=== PATIENT | female | born 2000 | race Hispanic/Latino ===

== ENCOUNTER 2021-02-05 07:19 | Emergency (ER) | payer OTHER, SELFPAY ==
--- OUTSIDE RECORDS SUMMARY | 2021-02-05 07:25 | XMS REPORT | Continuity of Care Document ---
:2000 Author Organization [facility] t Address [address] [place] [address] Care Team Providers Name Role Phone Gm Melvin III Attending Clinician Christofer Hogan Attending Clinician Mala Ji Attending Clinician Erma Arredondo Attending Clinician Pee Esparza Attending Clinician Sunny Lott Attending Clinician Placido Jasmine Jr Attending Clinician Harish Shukla Attending Clinician Sven Bautista Attending Clinician Mala Ji Admitting Clinician Erma Arredondo Admitting Clinician Payers Payer Name Policy Type Policy Number Effective Date Expiration Date S ource Problems Condition Condition Condition Status Onset Resolution Last Treating Co mments Source Name Details Category Date Date Treatment Clinician Date CYST IN Diagnosis Active 2020-04-11 Me moria EAR 5-30 15:28:00 l CYST IN 00:00: Abdulaziz EAR 00 Active 04/11/2020 [facility] ABD Diagnosis Active 2018-112019-08-19 Mem oria PAIN,VAGIN 0-07 18:43:00 l AL BLEED ABD 00:00: Abdulaziz PAIN,VAGIN 00 AL BLEED Active 08/19/2019 [facility] NVD Diagnosis Active 2018-05-11 Mem oria 6-20 15:48:00 l NVD 00:00: Sherman 00 Active 05/02/2018 [facility] VAG BLEED Diagnosis Active 2017-12-15 Memoria - 11:14:00 l VAG 00:00: Abdulaziz BLEED 00 Active 12/13/2017 [facility] VAG Diagnosis Active 2017-12-15 Mem oria BLEEDING/P 1-16 11:14:00 l REGNANT VAG 00:00: Sherman BLEEDING/P 00 REGNANT Active 11/28/2017 [facility] CP Diagnosis Active 2016-112017-12-15 Mem oria 12-09 11:13:00 l CP 00:00: Abdulaziz 00 Active 10/09/2017 [facility] LOWER PAIN Diagnosis Active 2015-112016-10-24 Memoria BACK, - 15:47:00 l HEADACHE, LOWER 00:00: Parish n PAIN PAIN BACK, 00 URINATIN HEADACHE, PAIN URINATIN Active 10/24/2016 [facility] VOMITTING Diagnosis Active 2016-03-11 Memoria 03-10 01:45:00 l 21:00: Sherman VOMITTING 00 Active 03/10/2016 [facility] Less than Problem 2018-03-21 Me moria 8 weeks 17:01:50 l gestation Less Sherman of than 8 weeks gestation of 03/21/2018 [facility] Unspecifie Problem 2018-03-06 M emoria d 19:04:36 l infection Abdulaziz of urinary Unspecifie tract in d , infection first of urinary trimester tract in , first trimester 03/06/2018 [facility] VAGINAL Diagnosis Active 2018-04-05 Me moria BLEEDING 12:34:00 l VAGINAL Sherman BLEEDING Active [facility] Diagnosis Active 2018-05-11 Memoria RELATED 15:48:00 l CONDITIONS Parish n , UNSP, UNSP RELATED CONDITIONS , UNSP, UNSP Active [facility] Patient Problem Resolve 2020-04-13 2020-04-13 Memoria currently d 04-05 21:43:07 21:43:07 l Patient 00:00: Princess nn (finding) currently 00 (finding) Resolved 04/05/2018 Problem 04/13/2020 [facility] History of Past Illness Condition Condition Condition Status Onset Resolution Last Treating Co mments Source Name Details Category Date Date Treatment Clinician Date Unspecifie Problem 2020-04-13 2020-04-13 Memoria d otitis 30 21:43:07 21:43:07 l externa, 17:00: Sherman unspecifie Unspecifie 00 d ear d otitis externa, unspecifie d ear 04/11/2020 04/13/2020 [facility] Urinary Problem 2018-05-05 2018-05-05 Memoria tract - 04:24:57 04:24:57 l infection, Urinary 05:00: Her lopes site not tract 00 specified infection, site not specified 05/02/2018 05/05/2018 [facility] Nausea Problem 2018-05-05 2018-05-05 M emoria with 05-02 04:24:57 04:24:57 l vomiting, Nausea 05:00: Princess nn unspecifie with 00 d vomiting, unspecifie d 05/02/2018 05/05/2018 [facility] Threatened Problem 2018-03-21 2018-03-21 Memoria 12-13 17:01:50 17:01:50 l 06:00: Sherman Threatened 00 8 03/21/2018 [facility] Other Problem 2018-03-06 2018-03-06 M emoria specified 11-28 19:04:36 19:04:36 l disorders Other 06:00: Parish n of specified 00 amniotic disorders fluid and of membranes, amniotic unspecifie fluid and d membranes, trimester, unspecifie not d applicable trimester, or not unspecifie applicable d or unspecifie d 11/28/2017 03/06/2018 [facility] Problem 2016-112017-10-13 2017-10-13 M emoria pain, 12-10 05:05:00 05:05:00 l unspecifie Chest 06:00: Princess nn d pain, 00 unspecifie d 10/10/2017 10/13/2017 [facility] Discharge Problem 2015-112016-10-27 2016-10-27 Memoria Diagnosis: 2-12 03:44:14 03:44:14 l Headache 06:00: Sherman Discharge 00 Diagnosis: Headache 6 10/27/2016 [facility] Discharge Problem 2016-03-14 2016-03-14 Memoria Diagnosis: 4-29 02:47:30 02:47:30 l Acute 05:00: Sherman gastritis Discharge 00 Diagnosis: Acute gastritis 03/11/2016 03/14/2016 [facility] Discharge Problem 2016-03-14 2016-03-14 Memoria Diagnosis: 4-29 02:47:30 02:47:30 l Nausea & 05:00: Sherman vomiting Discharge 00 Diagnosis: Nausea & vomiting 6 03/14/2016 [facility] Discharge Problem 2016-03-14 2016-03-14 Memoria Diagnosis: 4- 02:47:30 02:47:30 l Dehydratio 05:00: Parish n n Discharge 00 Diagnosis: Dehydratio n 03/11/2016 03/14/2016 [facility] Discharge Problem 2016-03-14 2016-03-14 Memoria Diagnosis: 4- 02:47:30 02:47:30 l Dyspepsia 05:00: Abdulaziz Discharge 00 Diagnosis: Dyspepsia 03/11/2016 03/14/2016 [facility] Discharge Problem 2016-03-14 2016-03-14 Memoria Diagnosis: 4- 02:47:30 02:47:30 l Epigastric 05:00: Parish n pain Discharge 00 Diagnosis: Epigastric pain 03/11/2016 03/14/2016 [facility] Allergies, Adverse Reactions, Alerts Allergy Allergy Status Severity Reaction(s) Onset Inactive Treating Comm ents Source Name Type Date Date Clinician valentina SEARS Active [facility]05 [place] 00:00[facility] [address] [facility] No Known DA Active U 2018-11 [facility] [facility] No Known No Known Active Memori a Medicati Medicati l on on Abdulaziz Allergie Allergie s s Social History Social Habit Start Date Stop Date Quantity Comments Source Social History 2018-05-03 2018-05-03 [facility] 00:41:40 00:41:40 Medications Ordered Filled Start Stop Current Ordering Indication Dosage Frequency Signature Comments Components Source Medication Medication Date Date Medication? Clinician (SIG) Name Name ibuprofen Yes 600 mg = 1 Me moria 600 mg oral 5-30 tab, PO, l tablet 20:15: Q6H, PRN Sherman 00 Pain or Fever, Take with food, X 10 day, # 30 tab, 0 Refill(s) Hydrocortis Yes 4 drp, Erik andi one 10 5-30 Each l MG/ML / 20:14: Affected Parish n Neomycin 00 Ear, QID, 3.5 MG/ML / X 10 day, Polymyxin B # 10 mL, 0 [id number] Refill(s) UNT/ML Otic Suspension Saline 2018-11 No Notes: Memoria Flush 0.9% 0-07 (Same as: l 13:29: BD Abdulaziz 00 Posiflush) Zofran No Notes: Memoria 6-21 (Same as: l 01:06: Zofran) MEDICATION WASTE Product Size: 4 mg Product Wasted: ___ mg Rocephin No 1 gm, Memoria 05-03 Route: IV, l 01:06: ONCE, Dosing Weight 90.909, kg, Start date: 05/02/18 20:06:00 CDT, Stop date: 05/02/18 20:06:00 CDT, ABX Indication : Urinary Tract Infection normal No 1,000 mL, Memori a saline 0.9% 05-03 Rate: 150 l IV 1,000 mL 01:06: ml/hr, Infuse over: 6.7 hr, Route: IV, Dosing Weight 90.909 kg, Total Volume: 1,000, Start date: 05/02/18 20:06:00 CDT, Duration: 30 day, Stop date: 06/01/18 20:05:00 CDT, 2.03, m2 doxylamine Yes 1 tab, PO, M emoria succinate 6-20 Bedtime, # l 10 MG / 23:24: 14 tab, 0 Princess nn Pyridoxine 00 Refill(s) Hydrochlori de 10 MG Enteric Coated Tablet [Diclegis] Ondansetron Yes 4 mg = 1 Me moria 4 MG 6-20 tab, PO, l Disintegrat 23:23: TID, PRN He rmann ing Tablet 00 Nausea and [Zofran] Vomiting, Dissolve tab under tongue, # 21 tab, 0 Refill(s) Nitrofurant Yes 100 mg = 1 Memoria oin 100 MG 6-20 cap, PO, l Oral 23:22: BID, X 7 Abdulaziz Capsule 00 day, # 14 [Macrobid] cap, 0 Refill(s) Tylenol No 650 mg, Memoria 6-20 Route: PO, l 23:18: Drug form: Sherman 00 TAB, ONCE, Dosing Weight 88, kg, Priority: STAT, Start date: 05/02/18 18:18:00 CDT, Stop date: 05/02/18 18:18:00 CDT Rocephin No 1 gm, Memoria 6-20 Route: l 23:18: IVPB, Drug form: PDR/INJ, ONCE, Dosing Weight 88, kg, Priority: STAT, Start date: 05/02/18 18:18:00 CDT, Stop date: 05/02/18 18:18:00 CDT, ABX Indication : Urinary Tract Infection Zofran ODT No 4 mg, Memori a 6-20 Route: PO, l 23:18: Drug form: Abdulaziz 00 TABDIS, ONCE, Dosing Weight 88, kg, Priority: STAT, Start date: 05/02/18 18:18:00 CDT, Stop date: 05/02/18 18:18:00 CDT Phenergan No Notes: Do Mem oria 6-20 not give l 19:38: IV push. Abdulaziz 00 (Same as: Phenergan) Ondansetron No Notes: Erik andi 6-20 (Same as: l 17:12: Zofran Abdulaziz 00 ODT) Saline No Notes: Memoria Flush 0.9% 6-20 (Same as: l 17:12: BD Sherman Posiflush) Sodium 2017- No 1,000 mL, Memori a Chloride 6-20 1000 l 0.9% 17:12: ml/hr, Abdulaziz (Bolus) IV 00 Infuse Over: 1 hr, Route: IV, 1,000, Drug form: INJ, ONCE, Priority: STAT, Dosing Weight 88 kg, Start date: 05/02/18 12:12:00 CDT, Stop date: 05/02/18 12:12:00 CDT tetanus/dip No Notes: Erik andi hth/pertuss 6-20 (Tdap ) l (Tdap) 05:00: For Abdulaziz adult/adol 00 Adolecent and Adult use For IM Use. Same as: Adacel (Tdap) Nitrofurant Yes 100 mg = 1 Memoria oin 100 MG 5-24 cap, PO, l Oral 18:42: BID, # 20 Sherman Capsule 00 cap, 0 [Macrobid] Refill(s), Pharmacy: [facility] Metronidazo Yes 500 mg = 1 Memoria le 500 MG 5-24 tab, PO, l Oral Tablet 18:42: BID, # 20 H ermann 00 tab, 0 Refill(s), Pharmacy: [facility] Saline No Notes: Memoria Flush 0.9% 12-13 (Same as: l 21:21: BD Posiflush) Nitrofurant No 100 mg = 1 Memoria oin 100 MG 1-16 cap, PO, l Oral 23:07: BID, X 7 Sherman Capsule 00 day, # 14 [Macrobid] cap, 0 Refill(s) NS (Bolus) No 1,000 mL, Me moria IV -16 1,000 l 21:54: ml/hr, Infuse Over: 1 hr, Route: IV, ONCE, Priority: STAT, Dosing Weight 87.909 kg, Start date: 11/28/17 15:54:00 REGISTERED NURSE SUPERVISOR, Stop date: 11/28/17 15:54:00 REGISTERED NURSE SUPERVISOR PNV Yes 1 tab, PO, Memoria 1-16 Daily, 0 l Plus 21:51: Refill(s) Tylenol No Notes: Do Memor ia 1-16 not exceed l 21:48: 4 gm/day. Abdulaziz 00 (Same as: Tylenol) Ketorolac 2016-11 No 10 mg = 1 Mem oria Tromethamin 1-28 tab, PO, l e 10 MG 14:07: Q6H, PRN Parish n Oral Tablet 00 pain, # 20 tab, 0 Refill(s) Ranitidine 2016-11 Yes 150 mg = 1 M emoria 150 MG Oral 12-10 tab, PO, l Tablet 14:05: BID, # 30 Parish n [Zantac] 00 tab, 0 Refill(s) Ketorolac 2016-11 No 30 mg, Memori a 12-10 Route: l 12:27: IVP, Drug form: INJ, ONCE, Dosing Weight 92.273, kg, Priority: STAT, Start date: 10/10/17 6:27:00 REGISTERED NURSE SUPERVISOR, Stop date: 10/10/17 6:27:00 REGISTERED NURSE SUPERVISOR Saline 2016-11 No Notes: Memoria Flush 0.9% 12-10 (Same as: l 09:26: BD Abdulaziz 00 Posiflush) Acetaminoph 2015-11 Yes 1 cap, PO, Memoria en 300 MG / 2-12 Q4H, PRN l butalbital 18:41: PRN Sherman 50 MG / 00 Headache, Caffeine 40 Do not MG Oral exceed 6 Capsule capsules [Fioricet] in 24 hours, X 10 day, # 20 cap, 0 Refill(s) Benadryl 2015-11 No Notes: Memoria 2-12 (Same as: l 16:04: Benadryl) Abdulaziz 00 Reglan 2015-11 No Notes: Memoria 2-12 (Same as: l 16:04: Reglan) Abdulaziz 00 Sodium 2015-11 No 1,000 mL, Memori a Chloride 12 1,000 l 0.154 16:04: ml/hr, Abdulaziz MEQ/ML 00 Infuse Injectable Over: 1 Solution hr, Route: IV, 1,000, Drug form: INJ, ONCE, Priority: STAT, Dosing Weight 80.966 kg, Start date: 10/24/16 10:04:00 REGISTERED NURSE SUPERVISOR, Duration: 1 doses or times, Stop date: 10/24/16 10:04:00 REGISTERED NURSE SUPERVISOR Ketorolac 2015-11 No 4 days Memor ia -12 l 16:03: MEDICATION Abdulaziz 00 WASTE Product Size: 30 mg Product Wasted: ___ mg Tylenol 2015-11 No 650 mg, Memoria 12 Route: PO, l 15:23: Drug form: Sherman 00 TAB, ONCE, Dosing Weight 80.966, kg, Priority: STAT, Start date: 10/24/16 9:23:00 REGISTERED NURSE SUPERVISOR, Stop date: 10/24/16 9:23:00 REGISTERED NURSE SUPERVISOR Acetaminoph 2015- No 1 - 2 tab, Memoria en 300 MG / 03-11 PO, Q4H, l Codeine 09:26: PRN Pain, Princess nn Phosphate 00 X 2 day, # 30 MG Oral 20 tab, 0 Tablet Refill(s) [Tylenol with Codeine #3] Ondansetron Yes 8 mg = 1 Me moria 8 MG 4-29 tab, PO, l Disintegrat 09:26: TID, PRN He rmann ing Tablet 00 Nausea and [Zofran] Vomiting, Dissolve tab under tongue, X 4 day, # 10 tab, 0 Refill(s) Ranitidine Yes 150 mg = 1 M emoria 150 MG Oral -29 tab, PO, l Tablet 09:25: BID, # 60 Parish n [Zantac] 00 tab, 0 Refill(s) Sodium 2015- No 1,000 mL, Memori a Chloride 03-11 1,000 l 0.154 07:42: ml/hr, Abdulaziz MEQ/ML 00 Infuse Injectable Over: 1 Solution hr, Route: IV, ONCE, Priority: STAT, Dosing Weight 72.955 kg, Start date: 03/11/16 2:42:00 CDT, Duration: 1 doses or times, Stop date: 03/11/16 2:42:00 CDT Morphine 2015- No 4 mg, Memoria 03-11 Route: l 06:05: IVP, Drug Abdulaziz form: INJ, ONCE, Dosing Weight 72.955, kg, Priority: STAT, Start date: 03/11/16 1:05:00 CDT, Stop date: 03/11/16 1:05:00 CDT Reglan 2015-0 No 10 mg, Memoria 03-11 Route: l 06:05: IVP, Drug Abdulaziz form: INJ, ONCE, Dosing Weight 72.955, kg, Priority: STAT, Start date: 03/11/16 1:05:00 CDT, Stop date: 03/11/16 1:05:00 CDT GI cocktail 2015-0 No 30 mL, Erik andi 03-11 Route: PO, l 06:05: Dosing Abdulaziz 00 Weight 72.955, kg, ONCE, STAT, Start date: 03/11/16 1:05:00 CDT, Stop date: 03/11/16 1:05:00 CDT Ondansetron No 4 mg, Memor ia 03-11 Route: PO, l 03:37: Drug form: Sherman 00 TABDIS, ONCE, Dosing Weight 65, kg, Priority: STAT, Start date: 03/10/16 22:37:00 CDT, Stop date: 03/10/16 22:37:00 CDT Saline No Notes: Memoria Flush 0.9% 03-11 (Same as: l 03:37: BD Sherman Posiflush) Vital Signs Vital Name Observation Time Observation Value Comments Source Height 2020-04-11 20:07:00 [facility] Calculated 2020-04-11 20:07:00 Memori al [place] Weight 2020-04-11 20:07:00 [facility] [place] Systolic (mm Hg) 2020-04-11 20:07:00 Erik rial Sherman Diastolic (mm Hg) 2020-04-11 20:07:00 Mem orial [place] Heart Rate 2020-04-11 20:07:00 [facility] Abdulaziz Respitory Rate 2020-04-11 20:07:00 Memori al Abdulaziz Temperature Oral (F) 2020-04-11 20:07:00 98 F [facility] Abdulaziz Systolic (mm Hg) 2019-08-19 13:16:00 Erik rial Sherman Diastolic (mm Hg) 2019-08-19 13:16:00 Mem orial Abdulaziz Heart Rate 2019-08-19 13:16:00 [facility] Abdulaziz Respitory Rate 2019-08-19 13:16:00 Memori al Sherman Temperature Oral (F) 2019-08-19 13:16:00 98.4 F [facility] [place] Height 2019-08-19 13:16:00 157.48 cm [facility] Abdulaziz BMI Calculated 2019-08-19 13:16:00 Memori al Abdulaziz Weight 2019-08-19 13:16:00 [facility] Abdulaziz Systolic (mm Hg) 2018-05-03 00:30:00 Erik rial Sherman Diastolic (mm Hg) 2018-05-03 00:30:00 Mem orial [place] Heart Rate 2018-05-03 00:30:00 [facility] [place] Respitory Rate 2018-05-03 00:30:00 Memori al Abdulaziz Temperature Oral (F) 2018-05-03 00:30:00 97.2 F [facility] [place] Weight 2018-05-03 00:05:00 [facility] Abdulaziz Height 2018-05-03 00:05:00 157.48 cm [facility] [place] BMI Calculated 2018-05-03 00:05:00 Memori al Abdulaziz Systolic (mm Hg) 2018-05-02 23:23:00 Erik rial Abdulaziz Diastolic (mm Hg) 2018-05-02 23:23:00 Mem orial Sherman Respitory Rate 2018-05-02 23:23:00 Memori al [place] Respitory Rate 2018-05-02 22:30:00 Memori al Abdulaziz Systolic (mm Hg) 2018-05-02 22:30:00 Erik rial [place] Diastolic (mm Hg) 2018-05-02 22:30:00 Mem orial Abdulaziz Temperature Oral (F) 2018-05-02 17:09:00 98.2 F [facility] [place] Heart Rate 2018-05-02 17:09:00 [facility] Abdulaziz Height 2018-05-02 17:09:00 165.1 cm [facility] [place] BMI Calculated 2018-05-02 17:09:00 Memori al Abdulaziz Weight 2018-05-02 17:09:00 [facility] [place] Systolic (mm Hg) 2018-04-05 16:55:00 Erik rial Sherman Diastolic (mm Hg) 2018-04-05 16:55:00 Mem orial Sherman Height 2018-04-05 16:38:00 157.48 cm [facility] [place] Weight 2018-04-05 16:38:00 [facility] Abdulaziz BMI Calculated 2018-04-05 16:38:00 Memori al Abdulaziz Systolic (mm Hg) 2017-12-13 23:47:00 Erik rial Abdulaziz Diastolic (mm Hg) 2017-12-13 23:47:00 Mem orial Sherman Respitory Rate 2017-12-13 23:47:00 Memori al [place] Respitory Rate 2017-12-13 22:51:00 Memori al Abdulaziz Heart Rate 2017-12-13 22:51:00 [facility] Abdulaziz Systolic (mm Hg) 2017-12-13 22:51:00 Erik rial Sherman Diastolic (mm Hg) 2017-12-13 22:51:00 Mem orial Abdulaziz Weight 2017-12-13 21:17:00 [facility] Abdulaziz Temperature Oral (F) 2017-12-13 21:17:00 99.3 F [facility] Abdulaziz BMI Calculated 2017-12-13 21:17:00 Memori al Abdulaziz Height 2017-12-13 21:17:00 157.48 cm [facility] Abdulaziz Systolic (mm Hg) 2017-12-13 21:17:00 Erik rial Abdulaziz Diastolic (mm Hg) 2017-12-13 21:17:00 Mem orial Abdulaziz Heart Rate 2017-12-13 21:17:00 [facility] Abdulaziz Respitory Rate 2017-12-13 21:17:00 Memori al Abdulaziz Heart Rate 2017-11-28 23:48:00 [facility] Abdulaziz Respitory Rate 2017-11-28 23:48:00 Memori al Abdulaziz Systolic (mm Hg) 2017-11-28 23:48:00 Erik rial Sherman Diastolic (mm Hg) 2017-11-28 23:48:00 Mem orial Sherman Systolic (mm Hg) 2017-11-28 22:30:00 Erik rial Sherman Diastolic (mm Hg) 2017-11-28 22:30:00 Mem orial Sherman Respitory Rate 2017-11-28 22:30:00 Memori al [place] Heart Rate 2017-11-28 22:30:00 [facility] Abdulaziz Systolic (mm Hg) 2017-11-28 21:30:00 Erik rial Abdulaziz Diastolic (mm Hg) 2017-11-28 21:30:00 Mem orial [place] Heart Rate 2017-11-28 21:30:00 [facility] Abdulaziz Respitory Rate 2017-11-28 21:30:00 Memori al [place] Weight 2017-11-28 20:40:00 [facility] Abdulaziz BMI Calculated 2017-11-28 20:40:00 Memori al Abdulaziz Temperature Oral (F) 2017-11-28 20:40:00 98.4 F [facility] Abdulaziz Height 2017-11-28 20:40:00 157.48 cm [facility] [place] Heart Rate 2017-10-10 14:07:00 [facility] [place] Respitory Rate 2017-10-10 14:07:00 Memori al [place] Systolic (mm Hg) 2017-10-10 14:07:00 Erik rial Sherman Diastolic (mm Hg) 2017-10-10 14:07:00 Mem orial Abdulaziz Weight 2017-10-10 07:14:00 [facility] Abdulaziz BMI Calculated 2017-10-10 07:14:00 Memori al Abdulaziz Temperature Oral (F) 2017-10-10 07:14:00 99 F [facility] [place] Respitory Rate 2017-10-10 07:14:00 Memori al [place] Height 2017-10-10 07:14:00 154.94 cm [facility] Abdulaziz Heart Rate 2017-10-10 07:14:00 [facility] Abdulaziz Systolic (mm Hg) 2017-10-10 07:14:00 Erik rial Abdulaziz Diastolic (mm Hg) 2017-10-10 07:14:00 Mem orial Abdulaziz Systolic (mm Hg) 2016-10-24 18:47:00 Erik rial Abdulaziz Diastolic (mm Hg) 2016-10-24 18:47:00 Mem orial Sherman Respitory Rate 2016-10-24 18:47:00 Memori al Abdulaziz Heart Rate 2016-10-24 18:47:00 [facility] [place] Temperature Oral (F) 2016-10-24 18:47:00 97.3 F [facility] Abdulaziz Systolic (mm Hg) 2016-10-24 17:04:00 Erik rial Abdulaziz Diastolic (mm Hg) 2016-10-24 17:04:00 Mem orial Sherman Respitory Rate 2016-10-24 17:04:00 Memori al Abdulaziz Heart Rate 2016-10-24 17:04:00 [facility] Abdulaziz Respitory Rate 2016-10-24 15:22:00 Memori al Abdulaziz Systolic (mm Hg) 2016-10-24 15:22:00 Erik rial Abdulaziz Diastolic (mm Hg) 2016-10-24 15:22:00 Mem orial Abdulaziz Heart Rate 2016-10-24 15:22:00 [facility] [place] BMI Calculated 2016-10-24 14:59:00 Memori al Abdulaziz Weight 2016-10-24 14:59:00 [facility] [place] Height 2016-10-24 14:59:00 157.48 cm [facility] [place] Temperature Oral (F) 2016-10-24 14:59:00 98.4 F [facility] Abdulaziz Heart Rate 2016-03-11 09:33:00 [facility] [place] Temperature Oral (F) 2016-03-11 09:33:00 97.8 F [facility] Abdulaziz Respitory Rate 2016-03-11 09:33:00 Memori al [place] Systolic (mm Hg) 2016-03-11 09:33:00 Erik rial Abdulzaiz Diastolic (mm Hg) 2016-03-11 09:33:00 Mem orial Sherman Systolic (mm Hg) 2016-03-11 08:51:00 Erik rial Abdulaziz Diastolic (mm Hg) 2016-03-11 08:51:00 Mem orial Abdulaziz Respitory Rate 2016-03-11 08:51:00 Memori al Abdulaziz Heart Rate 2016-03-11 08:51:00 [facility] [place] Temperature Oral (F) 2016-03-11 08:51:00 96.8 F [facility] [place] Respitory Rate 2016-03-11 06:18:00 Memori al Abdulaziz Systolic (mm Hg) 2016-03-11 06:18:00 Erik rial Abdulaziz Diastolic (mm Hg) 2016-03-11 06:18:00 Mem orial Abdulaziz Heart Rate 2016-03-11 06:18:00 [facility] Abdulaziz Weight 2016-03-11 03:36:00 [facility] [place] BMI Calculated 2016-03-11 03:36:00 Memori al [place] Temperature Oral (F) 2016-03-11 03:36:00 98.1 F [facility] [place] Height 2016-03-11 03:36:00 157.48 cm [facility] Procedures This patient has no known procedures. Encounters Start End Encounter Admission Attending Care Care Encounter Source Date/Time Date/Time Type Type Clinicians Facility Department ID 2020-04-11 2020-04-11 Outpatient Ngozi [facility] [id number] 15:05:35 15:21:00 Justo Worrell 2020-04-11 2020-04-11 [place] [id number] 15:05:00 15:05:00 2019-08-19 2019-08-19 Outpatient Edison, [facility] [id number] 08:14:07 09:20:00 Agusto Beaulieu 2018-05-02 2018-05-02 Outpatient Garrison [facility] [id number] 12:06:00 23:09:00 Ricardo Lemus 2018-04-05 2018-04-05 Outpatient Arnulfo, [facility] [id number] 11:38:00 13:45:00 Doug Ritchie 2017-12-13 2017-12-13 Outpatient Vilma, [facility] [id number] 14:42:00 17:48:00 Roldan Glasgow 2017-11-28 2017-11-28 Outpatient Juan Carlos Lott [facility] [id number] 14:32:00 17:54:00 Sunny 05 2017-10-10 2017-10-10 Outpatient Kenroy, [facility] [id number] 01:10:00 08:20:00 Isiah 04 2016-10-24 2016-10-24 Outpatient Vazquez, [facility] [id number] 08:47:00 13:06:00 Christopher Yajaira [facility] 2016-03-10 2016-03-11 Outpatient Bautista, [facility] [id number] 22:23:00 04:34:00 Alessandra López Results Test Description Test Time Test Comments Results Result Comments Source ISTAT HCG 2021-01-18 17:00:00 Test Item Value Reference Range Interpretation Comme nts ISTAT HCG (test code = ISHCG) <5.0 IU/L A value of less than or equal to <5 IU/L is considered N EGATIVE A value between 5 IU/L and 25 IU/ L is considered INDETERMINATE A value of >25 IU/L is considered POSI TIVE ISTAT CHEM [id number] 17:00:00 Test Item Value Reference Range Interpretation Comments ISTATNA (test code = 140 MMOL/L 137-145 ISTATNA) ISTATK (test code = 4.2 MMOL/L 3.6-5.0 ISTATK) ISTATCL (test code = 105 MMOL/L 98-107 ISTATCL) ISTIONCA (test code = 1.37 MMOL/L 1.12-1.32 H ISTIONCA) ISTCO2 (test code = 22 MMOL/L 22-30 ISTCO2) ISTATGLU (test code = 77 MG/DL 65-110 ISTATGLU) ISTATBUN (test code = 15.0 MG/DL 7.0-20.0 ISTATBUN) ISTCREA (test code = 0.7 MG/DL 0.7-1.5 ISTCREA) ISTATHCT (test code = 45 %PCV 37.0-52.0 ISTATHCT) ISTATHGB (test code = 15.3 G/DL 12.0-18.0 Notifi ed Nurse/MD of [facility]) results outside of Reference Range s ISTANGAP (test code = 17 MMOL/L Notifi ed Nurse/MD of [facility]) results outside of Reference Range s [id number] 16:49:00 Test Item Value Reference Range Interpretation Comments GLUCOSE (test code = URGLU) NEGATIVE MG/DL NEG-100 BILIRUBN (test code = URBILI) NEGATIVE NEGATIVE KETONE (test code = URKET) NEGATIVE MG/DL NEGATIVE BLOOD (test code = URBLD) NEGATIVE UR PH (test code = URPH) 6.0 5.0-7.5 PROTEIN (test code = URPRO) NEGATIVE MG/DL NEGATIVE NITRITES (test code = URNIT) NEGATIVE NEGATIVE UROBILINGEN (test code = 0.2 EU/DL 0.2-1.0 URURO) LEUKOCYT (test code = URLEU) MODERATE NEGATIVE UA COLOR (test code = UA YELLOW YELLOW COLOR) CLARITY (test code = CLARITY) CLOUDY CLEAR SP GRAV (test code = URSPGRAV) 1.020 1.000-1.025 UAMICRO (test code = UAMICRO) YES WBC (test code = URWBC) 23 /HPF 0-5 H RBC (test code = URRBC) 4 /HPF 0-2 H CASTS (test code = CAST) 4 /LPF 0-3 H UR EPI (test code = EPI) 135 /LPF BACTERIA (test code = TRACE NONE BACTERIA) B-HCG, [id number] 10:40:00 Test Item Value Reference Range Interpretation Comments HCG (test code = 578861 MIU/ML A value of less than or HCG) equal to </= 4. 83 mIU/ml is considered N EGATIVE. A value between 4.84 mIU/ml and 24.9 9 mIU/ml is considered INDETERMINATE a nd should be repeated in 48 hours if necessary. A value of 25.0 mIU/ml or greater is considered P OSITIVE. Updated: 03/20/20 10 [id number] 10:19:00 Test Item Value Reference Range Interpretation Comments BLOOD TYPE (test O Rh Positive Comment for code = TYPE) Female s Rhogam may be indicated for p atient depending baby' s Rh status. OB <14 [id number] 10:00:00 [facility] [place] : 2000 Sex: F[address] [id number] IMAGING REPORTPatient Name: ASHLEY HAYNES RDate of Service: [id number]: 20 Sex: F Order #: [id number] Room: ERSDOB: 2000 X-Ray Number: [id number] Record Number: [id number] Hospital Number: [id number] Physician: BRANDON LARSEN -Ordering Physician: MIRIAM MATTA OB <14 WEEKS-MULTIPLE GESTATIONS 11/27/2020 9:51 AM:History: - bleeding - R/O miscarriage . with vaginalbleeding and pelvic pain. Multiple gestation with pain andbleedingComparison: 11/16/2020Technique: Transabdominal grayscale, color Doppler, and spectral Dopplerimaging of the fetus and maternal pelvisFindings:The uterus is anteflexed and measures 14.7 cm in length. There is a livedichorionic diamniotic intrauterine twin gestation. Twin A has a crown-rumplength of 3.2 cm corresponding with an average gestational age of 10 weeksand 1 day with a normal cardiac motion of 160 bpm. The crown-rumplength of twin B measures 3.9 cm corresponding with an averag e gestationalage of 10 weeks and 6 days with a normal cardiac motion of 163 bpm.The placenta and amniotic fluid volume are appropriate. There issubchorionic hemorrhage noted adjacent to the gestational sac measuring 2.2x 0.3 x 2.5 cm.The right ovary is normal in size and sonographic appearance with normalcolor Doppler signal and normal spectral Doppler waveforms. The left ovaryis obscured by bowel gas and not visualized. There is no free fluid withinthe pelvis.Impression:1. Live dichorionic, diamniotic intrauterine twin gestation measuringproximally 10 weeks and 6 days with normal cardiac motion.2. Subchorionic hemorrhage. Recommend attention on follow-up imaging.Electronically Signed By: Christopher Molina M.D., 11/27/2020 9:58 AMLegally authenticated by JASON HARDIN 2020-11-27 09:58:[id number] 09:52:00 Test Item Value Reference Range Interpretation Comments SODIUM (test code 135 MMOL/L 137-145 L = NA) K+ (test code = 4.0 MMOL/L 3.5-5.1 KSERUM) CHLORIDE (test 104 MMOL/L 98-107 code = CL) CO2 (test code = 21 MMOL/L 22-30 L CO2) BUN (test code = 6 MG/DL 7-17 L BUN) CREA (test code = 0.5 MG/DL 0.7-1.2 L CREA) GLUCOSE (test code 75 MG/DL 70-99 Fasting glucose = GLUCOSE) normal <100 MG/ DL- [employer] recommendation* * CALCIUM (test code 9.9 MG/DL 8.4-10.2 = CABLOOD) TOTPROT (test code 7.3 G/DL 6.3-8.2 = TOTPROT) ALBUMIN (test code 4.1 G/DL 3.5-5.0 = ALBSERUM) BILITOT (test code 0.6 MG/DL 0.2-1.3 = BILITOT) AST (test code = 21 U/L 15-46 AST) PHOSALK (test code 44 U/L 38-126 = PHOSALK) ALTV (test code = 11 U/L 13-69 L ALTV) GFR (test code = 166 A GFR of >9 0 GFR) mL/min/1.73m2 mL/min/1.73m2 is considered norm al. The GFR calcula tion on patients ove r 70 years of age is not validated by e solutions market consultant an d may not represent t he patients true r enal function. [id number] 09:30:00 Test Item Value Reference Range Interpretation Comments WBC (test code = 9.5 K/UL 3.5-10.9 WBC) RBC (test code = 4.61 M/UL 4.0-5.0 RBC) HGB (test code = 14.1 G/DL 11.5-15.5 HGB) HCT (test code = 41.0 % 34-46 HCT) MCV (test code = 88.9 FL 80-98 MCV) MCH (test code = 30.6 PG 28-32 MCH) MCHC (test code = 34.4 G/DL 32.5-36.5 MCHC) RDW (test code = 14.8 % 11.5-14.5 H RDW) PLT (test code = 282 K/UL 150-450 PLT) MPV (test code = 10.0 FL 7.4-10.4 MPV) MANDIFF (test code = NO MANDIFF) SCAN (test code = NO SCAN) NEUT% (test code = 77.4 % 40-75 H NEUT%) LYMPH% (test code = 15.7 % 24-44 L LYMPH%) MONO% (test code = 5.4 % 0-13 MONO%) EOS% (test code = 0.9 % 0-4 EOS%) BASO % (test code = 0.3 % 0-2 BASO%) IG (test code = IG) 0 % 0-1 IG% (test code = 0.3 % 0-1 IG% = Metam yelocytes, IG%) Myelocytes, and Promyelocytes. (Immature neutr ophils not including " bands".) > 3% IG indic ates risk of sepsis NRBC% (test code = 0 /100 WBC NRBC%) ABS NEUT (test code 7.4 K/UL 1.2-7.2 H = NEUT) [id number] 08:33:00 Test Item Value Reference Range Interpretation Comments GLUCOSE (test code = URGLU) NEGATIVE MG/DL NEG-100 BILIRUBN (test code = URBILI) NEGATIVE NEGATIVE KETONE (test code = URKET) NEGATIVE MG/DL NEGATIVE BLOOD (test code = URBLD) NEGATIVE UR PH (test code = URPH) 5.5 5.0-7.5 PROTEIN (test code = URPRO) NEGATIVE MG/DL NEGATIVE NITRITES (test code = URNIT) NEGATIVE NEGATIVE UROBILINGEN (test code = 0.2 EU/DL 0.2-1.0 URURO) LEUKOCYT (test code = URLEU) MODERATE NEGATIVE UA COLOR (test code = UA YELLOW YELLOW COLOR) CLARITY (test code = CLARITY) CLOUDY CLEAR SP GRAV (test code = URSPGRAV) 1.017 1.000-1.025 UAMICRO (test code = UAMICRO) YES WBC (test code = URWBC) 53 /HPF 0-5 H RBC (test code = URRBC) 5 /HPF 0-2 H CASTS (test code = CAST) 26 /LPF 0-3 H UR EPI (test code = EPI) 119 /LPF BACTERIA (test code = SCAN NONE BACTERIA) US OB <14 [id number] 07:25:00 [facility] : 2000 Sex: F[address] [id number] IMAGING REPORTPatient Name: ASHLEY HAYNES RDate of Service: [id number]: 20 Sex: F Order #: [id number] Room: [facility]NER: 2000 X-Ray Number: [id number] Record Number: [id number] Hospital Number: [id number] Physician: LI MULTANIOrdering Physician: AVILA RILEY OB ULTRASOUND, TWIN GESTATION 11/16/2020HISTORY: Vaginal bleeding, pelvic pain, pregnancyCOMPARISON: 11/11/2020The uterus is anteverted measuring 11.6 x 6.3 x 9.6 cm. The ovaries areobscured by bowel gas. The cervix measures 3.1 cm in length.A twin, live, intrauterine is again. Fetus Ahas crown- rumplength of 2.0 cm with heart rate of 172 BPM. Fetus B has a crown-rumplength of 2.4 cm with heart rate of 172 BPM. Amniotic fluid volume isnormal. Yolk sacs are visualized.Echogenic material posterior to the gestational sac measures 4.0 x 0.7 x1.7 cm. The placenta is not yet well developed.No pelvic free fluid is seen. The urinary bladder is collapsed and not wellvisualized.IMPRESSION:Twin, live, intrauterine at 9 weeks 2 days gestation by [facility]. Estimated delivery date is 06/19/2021. Follow-up recommended later insecond trimester to document normal anatomy.Subchorionic hemorrhage.Electronically Signed By: Dread Carcamo M.D., 11/16/2020 7:23 AMLegally authenticated by BARBIE PAYTON 2020-11-16 07:23:05B-HCG, [id number] 05:18:00 Test Item Value Reference Range Interpretation Comments HCG (test code = 982198 MIU/ML A value of less than or HCG) equal to </= 4. 83 mIU/ml is considered N EGATIVE. A value between 4.84 mIU/ml and 24.9 9 mIU/ml is considered INDETERMINATE a nd should be repeated in 48 hours if necessary. A value of 25.0 mIU/ml or greater is considered P OSITIVE. Updated: 03/20/20 10 [id number] 03:56:00 Test Item Value Reference Range Interpretation Comments SODIUM (test code 135 MMOL/L 137-145 L = NA) K+ (test code = 3.9 MMOL/L 3.5-5.1 KSERUM) CHLORIDE (test 104 MMOL/L 98-107 code = CL) CO2 (test code = 19 MMOL/L 22-30 L CO2) BUN (test code = 15 MG/DL 7-17 BUN) CREA (test code = 0.7 MG/DL 0.7-1.2 CREA) GLUCOSE (test code 89 MG/DL 70-99 Fasting glucose = GLUCOSE) normal <100 MG/ DL- [employer] recommendation* * CALCIUM (test code 10.3 MG/DL 8.4-10.2 H = CABLOOD) TOTPROT (test code 8.0 G/DL 6.3-8.2 = TOTPROT) ALBUMIN (test code 4.6 G/DL 3.5-5.0 = ALBSERUM) BILITOT (test code 0.5 MG/DL 0.2-1.3 = BILITOT) AST (test code = 30 U/L 15-46 AST) PHOSALK (test code 57 U/L 38-126 = PHOSALK) ALTV (test code = 19 U/L 13-69 ALTV) GFR (test code = 112 A GFR of >9 0 GFR) mL/min/1.73m2 mL/min/1.73m2 is considered norm al. The GFR calcula tion on patients ove r 70 years of age is not validated by e solutions market consultant an d may not represent t he patients true r enal function. [id number] 03:44:00 Test Item Value Reference Range Interpretation Comments BLOOD TYPE (test O Rh Positive Comment for code = TYPE) Female s Rhogam may be indicated for patient dependi ng baby's Rh statu s. ANTIBODY SCREEN NEGATIVE NEGATIVE (test code = SCREEN) [id number] 03:21:00 Test Item Value Reference Range Interpretation Comments WBC (test code = 9.4 K/UL 3.5-10.9 WBC) RBC (test code = 5.18 M/UL 4.0-5.0 H RBC) HGB (test code = 14.7 G/DL 11.5-15.5 HGB) HCT (test code = 45.5 % 34-46 HCT) MCV (test code = 87.8 FL 80-98 MCV) MCH (test code = 28.4 PG 28-32 MCH) MCHC (test code = 32.3 G/DL 32.5-36.5 L MCHC) RDW (test code = 15.2 % 11.5-14.5 H RDW) PLT (test code = 317 K/UL 150-450 PLT) MPV (test code = 10.1 FL 7.4-10.4 MPV) MANDIFF (test code = NO MANDIFF) SCAN (test code = NO SCAN) NEUT% (test code = 66.5 % 40-75 NEUT%) LYMPH% (test code = 24.2 % 24-44 LYMPH%) MONO% (test code = 6.6 % 0-13 MONO%) EOS% (test code = 1.9 % 0-4 EOS%) BASO % (test code = 0.4 % 0-2 BASO%) IG (test code = IG) 0 % 0-1 IG% (test code = 0.4 % 0-1 IG% = Metam yelocytes, IG%) Myelocytes, and Promyelocytes. (Immature neutr ophils not including " bands".) > 3% IG indic ates risk of sepsis NRBC% (test code = 0 /100 WBC NRBC%) ABS NEUT (test code 6.3 K/UL 1.2-7.2 = NEUT) [id number] 03:20:00 Test Item Value Reference Range Interpretation Comments GLUCOSE (test code = URGLU) NEGATIVE MG/DL NEG-100 BILIRUBN (test code = URBILI) NEGATIVE NEGATIVE KETONE (test code = URKET) NEGATIVE MG/DL NEGATIVE BLOOD (test code = URBLD) NEGATIVE UR PH (test code = URPH) 6.0 5.0-7.5 PROTEIN (test code = URPRO) NEGATIVE MG/DL NEGATIVE NITRITES (test code = URNIT) NEGATIVE NEGATIVE UROBILINGEN (test code = 1.0 EU/DL 0.2-1.0 URURO) LEUKOCYT (test code = URLEU) MODERATE NEGATIVE UA COLOR (test code = UA YELLOW YELLOW COLOR) CLARITY (test code = CLARITY) CLEAR CLEAR SP GRAV (test code = URSPGRAV) 1.011 1.000-1.025 UAMICRO (test code = UAMICRO) YES WBC (test code = URWBC) 26 /HPF 0-5 H RBC (test code = URRBC) 1 /HPF 0-2 CASTS (test code = CAST) 2 /LPF 0-3 UR EPI (test code = EPI) 65 /LPF BACTERIA (test code = NEGATIVE NONE BACTERIA) ISTAT [id number] 02:56:00 Test Item Value Reference Range Interpretation Comments ISTAT HCG (test >2000.0 IU/L H A value of l ess than or code = ISHCG) equal to <5 IU /L is considered NEGA TIVE A value between 5 IU/L and 25 IU/L is cons idered INDETERMINATE A value of >25 IU/L is con sidered POSITIVE REFLEX CULTURE, [id number] 11:21:00 Test Item Value Reference Range Interpretation Comments Report Text (test CWJ 2020-11-12 848 code = Report Text) Report Text7 (test NO GROWTH WITHIN 24 HOURS code = Report Text7) Report Text8 (test PRELIMINARY REPORT code = Report Text8) Report Text9 (test code = Report Text9) Report Text10 (test 2020-11-13 1121 code = Report Text10) Report Text11 (test NO GROWTH WITHIN 48 HOURS code = Report Text11) Report Text12 (test FINAL REPORT code = Report Text12) US OB <14 [id number] 06:54:[address] [facility]ZTName: ASHLEY HAYNES : 2000 [facility] [place], [place] [address]KSKMGKMETC IMAGING REPORTPatient Name: ASHLEY HAYNES RDate of Service: [id number]: 21 Sex: F Order #: [id number] [facility] 2000 [facility] Number: [id number] Record Number: [id number] Hospital Number: [id number] Physician: Enoch LOYD Physician: SANDI LOYD OBULTRASOUND 11/11/2020HISTORY: Pelvic cramping and vaginal spotting, back pain, pregnancyCOMPARISON: NoneThe uterus is anteverted measuring 12.1 x 7.5 x 8.3 cm. Right ovarymeasures 3.3 x 2.5 x 2.4 cm and the left 2.5 x 2.2 x 3.2 cm. Blood flow isseen in both ovaries on color Doppler and duplex imaging with spectralanalysis. The cervix measures 2.6 cm in length.A twin, live, intrauterine is observed with crown-rump length of1.8 cm for fetus A and 1.9 cm for fetus B. heart rate is 161-163 BPMrespectively. Amniotic fluid volume is normal. Yolk sacs are visualized.Subchorionic hemorrhageon the right measures up to 4.8 x 2.2 x 2.3 cm. Theplacenta is not yet well- developed.No pelvic freefluid is seen. The urinary bladder is collapsed and not wellseen.IMPRESSION:Twin, live, intrauterinepregnancy at 8 weeks 6 days gestation by [facility]. Estimated delivery date is 06/17/2021. Follow-up recommended later insecond trimester to document normal anatomy.Subchorionic hemorrhage.No other acute findings.Electronically Signed By: Dread Carcamo M.D., 11/11/2020 6:51 Molly authenticatedby BARBIE PAYTON 2020-11-11 06:51:[id number] 06:49:00 Test Item Value Reference Range Interpretation Comments GLUCOSE (test code = URGLU) NEGATIVE MG/DL NEG-100 BILIRUBN (test code = URBILI) NEGATIVE NEGATIVE KETONE (test code = URKET) NEGATIVE MG/DL NEGATIVE BLOOD (test code = URBLD) NEGATIVE UR PH (test code = URPH) 6.0 5.0-7.5 PROTEIN (test code = URPRO) NEGATIVE MG/DL NEGATIVE NITRITES (test code = URNIT) NEGATIVE NEGATIVE UROBILINGEN (test code = 0.2 EU/DL 0.2-1.0 URURO) LEUKOCYT (test code = URLEU) SMALL NEGATIVE UA COLOR (test code = UA YELLOW YELLOW COLOR) CLARITY (test code = CLARITY) CLEAR CLEAR SP GRAV (test code = URSPGRAV) 1.011 1.000-1.025 UAMICRO (test code = UAMICRO) YES WBC (test code = URWBC) 49 /HPF 0-5 H RBC (test code = URRBC) 3 /HPF 0-2 H CASTS (test code = CAST) 0 /LPF 0-3 UR EPI (test code = EPI) 45 /LPF BACTERIA (test code = NEGATIVE NONE BACTERIA) ISTAT [id number] 05:37:00 Test Item Value Reference Range Interpretation Comments ISTAT HCG (test >2000.0 IU/L H A value of l ess than or code = ISHCG) equal to <5 IU /L is considered NEGA TIVE A value between 5 IU/L and 25 IU/L is cons idered INDETERMINATE A value of >25 IU/L is con sidered POSITIVE [id number] 05:14:00 Test Item Value Reference Range Interpretation Comments WBC (test code = 9.7 K/UL 3.5-10.9 WBC) RBC (test code = 4.67 M/UL 4.0-5.0 RBC) HGB (test code = 13.7 G/DL 11.5-15.5 HGB) HCT (test code = 41.2 % 34-46 HCT) MCV (test code = 88.2 FL 80-98 MCV) MCH (test code = 29.3 PG 28-32 MCH) MCHC (test code = 33.3 G/DL 32.5-36.5 MCHC) RDW (test code = 15.7 % 11.5-14.5 H RDW) PLT (test code = 298 K/UL 150-450 PLT) MPV (test code = 10.3 FL 7.4-10.4 MPV) MANDIFF (test code = NO MANDIFF) SCAN (test code = NO SCAN) NEUT% (test code = 63.2 % 40-75 NEUT%) LYMPH% (test code = 27.4 % 24-44 LYMPH%) MONO% (test code = 7.6 % 0-13 MONO%) EOS% (test code = 1.3 % 0-4 EOS%) BASO % (test code = 0.3 % 0-2 BASO%) IG (test code = IG) 0 % 0-1 IG% (test code = 0.2 % 0-1 IG% = Metam yelocytes, IG%) Myelocytes, and Promyelocytes. (Immature neutr ophils not including " bands".) > 3% IG indic ates risk of sepsis NRBC% (test code = 0 /100 WBC NRBC%) ABS NEUT (test code 6.1 K/UL 1.2-7.2 = NEUT) [id number] 05:08:00 Test Item Value Reference Range Interpretation Comments SODIUM (test code 135 MMOL/L 137-145 L = NA) K+ (test code = 3.7 MMOL/L 3.5-5.1 KSERUM) CHLORIDE (test 104 MMOL/L 98-107 code = CL) CO2 (test code = 22 MMOL/L 22-30 CO2) BUN (test code = 9 MG/DL 7-17 BUN) CREA (test code = 0.6 MG/DL 0.7-1.2 L CREA) GLUCOSE (test code 81 MG/DL 70-99 Fasting glucose = GLUCOSE) normal <100 MG/ DL- [employer]oc recommendation* * CALCIUM (test code 9.8 MG/DL 8.4-10.2 = CABLOOD) TOTPROT (test code 7.3 G/DL 6.3-8.2 = TOTPROT) ALBUMIN (test code 4.3 G/DL 3.5-5.0 = ALBSERUM) BILITOT (test code 0.4 MG/DL 0.2-1.3 = BILITOT) AST (test code = 24 U/L 15-46 AST) PHOSALK (test code 53 U/L 38-126 = PHOSALK) ALTV (test code = 10 U/L 13-69 L ALTV) GFR (test code = 134 A GFR of >9 0 GFR) mL/min/1.73m2 mL/min/1.73m2 is considered norm al. The GFR calcula tion on patients ove r 70 years of age is not validated by e solutions market consultant an d may not represent t he patients true r enal function. [id number] 04:54:00 Test Item Value Reference Range Interpretation Comments BLOOD TYPE (test O Rh Positive Comment for code = TYPE) Female s Rhogam may be indicated for p atient depending baby' s Rh status. APTIMA GONORRHEA/[id number] 18:08:00 Test Item Value Reference Range Interpretation Comments CHLAMYDIA TRACHOMATIS, Negative Negative SYED (test code = GENPROCH) NEISSERIA GONORRHOEAE, Negative Negative Perfo rmed at: [facility] - [facility] (test code = [facility] GENPROGC) [address] [place], [place] [id number] Lab D irector: Natasha Maddox, Phone: [phone] REFLEX CULTURE, [id number] 08:04:00 Test Item Value Reference Range Interpretation Comments RFUACULT (test code = RFUACULT) RFUACULT (test code = [id number]) PDG 2020-07-31 1157 >100,000 CFU/ML PDG 2020-07-31 1158 OXIDASE NEGATIVE GRAM NEGATIVE BACILLI ISOLATED PRELIMINARY REPORT PDG 2020-07-31 1159 ID AND/OR SENSITIVITY TO FOLLOW PRELIMINARY REPORT [place]/[id number] 13:19:00 Test Item Value Reference Range Interpretation Comments Report Text (test code = PDG 2020-07-30 1319 Report Text) Report Text7 (test code = NO TRICHOMONAS SEEN Report Text7) Report Text8 (test code = NO YEAST SEEN Report Text8) Report Text9 (test code = PDG 2020-07-30 1320 Report Text9) Report Text10 (test code NO CLUE CELLS SEEN = Report Text10) US PELVIS NON-OB [id number] 13:01:[address] [id number] IMAGING REPORTPatient Name: SHMUEL HAYNESADate of Service: 17-17-4274Hjq: 20 Sex: F Order #: [id number] [facility] 2000 [facility] Number: [id number] Record Number: [id number] Hospital Number: [id number] Physician: ZANDRA TEMPLEOrdering Physician: JUSTO MATTATransabdominal pelvicultrasound 07/30/2020History: Pelvic pain x2 daysComparison: NoneThe uterus is anteverted measuring 8.7 x 4.5 x 5.2 cm. There is no focalmass. Endometrial thickness is 8 mm without fluid collection. A subtle,thin, linear echogenicity at the endometrial stripe is apparently due to anIUD.Left ovary measures 3.7 x 2.4 x 2.6 cm. Right ovary measures 3.7 x 2.1 x2.6 cm. Both are normal. Vascular flow is seen on both sides.There is no pelvic free fluid. Visualized portions of the urinary bladderare normal.Impression:No suspicious acute process. Apparent IUD in place.Electronically Signed By: Dread Carcamo M.D., 07/30/2020 12:59 PMLegally authenticated by BARBIE PAYTON 2020-07-30 12:59:30ER SCREEN FOR HIV / 11:32:00 Test Item Value Reference Range Interpretation Comments HIV 1/2 AB (test NEGATIVE NEGATIVE This test i s used for code = SCRN HIV) SCREENING p urposes only. All reactive re sults are prelimenary and confirmation re sults will follow. [id number] 11:02:00 Test Item Value Reference Range Interpretation Comments BLOOD TYPE (test O Rh Positive Comment for code = TYPE) Female s Rhogam may be indicated for p atient depending baby' s Rh status. B-HCG, [id number] 10:52:00 Test Item Value Reference Range Interpretation Comments HCG (test code = <2.39 MIU/ML A value of less than or HCG) equal to </= 4. 83 mIU/ml is considered N EGATIVE. A value between 4 .84 mIU/ml and 24.99 mIU/m l is considered INDE TERMINATE and should be r epeated in 48 hours if nec essary. A value of 25.0 m IU/ml or greater is cons idered POSITIVE. Updat ed: 03/20/2010 [id number] 10:48:00 Test Item Value Reference Range Interpretation Comments GLUCOSE (test code = URGLU) NEGATIVE MG/DL NEG-100 BILIRUBN (test code = URBILI) SMALL NEGATIVE KETONE (test code = URKET) 15 MG/DL NEGATIVE BLOOD (test code = URBLD) LARGE UR PH (test code = URPH) 7.0 5.0-7.5 PROTEIN (test code = URPRO) 100 MG/DL NEGATIVE NITRITES (test code = URNIT) POSITIVE NEGATIVE UROBILINGEN (test code = 2.0 EU/DL 0.2-1.0 H URURO) LEUKOCYT (test code = URLEU) LARGE NEGATIVE UA COLOR (test code = UA DARK YELLOW YELLOW COLOR) CLARITY (test code = CLARITY) CLOUDY CLEAR SP GRAV (test code = URSPGRAV) 1.029 1.000-1.025 H UAMICRO (test code = UAMICRO) YES WBC (test code = URWBC) 734 /HPF 0-5 H RBC (test code = URRBC) 111 /HPF 0-2 H CASTS (test code = CAST) 9 /LPF 0-3 H UR EPI (test code = EPI) 27 /LPF BACTERIA (test code = TNTC NONE BACTERIA) [id number] 10:41:00 Test Item Value Reference Range Interpretation Comments SODIUM (test code = 138 MMOL/L 137-145 NA) K+ (test code = 3.5 MMOL/L 3.5-5.1 KSERUM) CHLORIDE (test code 104 MMOL/L 98-107 = CL) CO2 (test code = 26 MMOL/L 22-30 CO2) BUN (test code = 10 MG/DL 7-17 BUN) CREA (test code = 0.9 MG/DL 0.7-1.2 CREA) GLUCOSE (test code 100 MG/DL 70-99 H Fasting glucose = GLUCOSE) normal <100 MG/ DL- [employer] recommendation* * CALCIUM (test code 9.5 MG/DL 8.4-10.2 = CABLOOD) TOTPROT (test code 6.7 G/DL 6.3-8.2 = TOTPROT) ALBUMIN (test code 4.1 G/DL 3.5-5.0 = ALBSERUM) BILITOT (test code 0.5 MG/DL 0.2-1.3 = BILITOT) AST (test code = 34 U/L 15-46 AST) PHOSALK (test code 60 U/L 38-126 = PHOSALK) ALTV (test code = 30 U/L 13-69 ALTV) GFR (test code = 84 A GFR of >9 0 GFR) mL/min/1.73m2 mL/min/1.73m2 is considered norm al. [id number] 10:24:00 Test Item Value Reference Range Interpretation Comments WBC (test code = 6.4 K/UL 3.5-10.9 WBC) RBC (test code = 4.51 M/UL 4.0-5.0 RBC) HGB (test code = 12.7 G/DL 11.5-15.5 HGB) HCT (test code = 40.0 % 34-46 HCT) MCV (test code = 88.7 FL 80-98 MCV) MCH (test code = 28.2 PG 28-32 MCH) MCHC (test code = 31.8 G/DL 32.5-36.5 L MCHC) RDW (test code = 14.4 % 11.5-14.5 RDW) PLT (test code = 295 K/UL 150-450 PLT) MPV (test code = 10.3 FL 7.4-10.4 MPV) MANDIFF (test code = NO MANDIFF) SCAN (test code = NO SCAN) NEUT% (test code = 68.4 % 40-75 NEUT%) LYMPH% (test code = 21.8 % 24-44 L LYMPH%) MONO% (test code = 7.2 % 0-13 MONO%) EOS% (test code = 1.9 % 0-4 EOS%) BASO % (test code = 0.5 % 0-2 BASO%) IG (test code = IG) 0 % 0-1 IG% (test code = 0.2 % 0-1 IG% = Metam yelocytes, IG%) Myelocytes, and Promyelocytes. (Immature neutr ophils not including " bands".) > 3% IG indic ates risk of sepsis NRBC% (test code = 0 /100 WBC NRBC%) ABS NEUT (test code 4.4 K/UL 1.2-7.2 = NEUT) ISTAT [id number] 10:10:00 Test Item Value Reference Range Interpretation Comments ISTAT HCG (test <5.0 IU/L A value of l ess than or code = ISHCG) equal to <5 IU /L is considered NEGA TIVE A value between 5 IU/L and 25 IU/L is cons idered INDETERMINATE A value of >25 IU/L is con sidered POSITIVE HGB [id number] 17:49:00 Test Item Value Reference Range Interpretation Comments RED BLOOD CELL (test code = RBC) 3.20 M/mm3 3.8-5.5 L HEMOGLOBIN (test code = HGB) 9.7 G/DL 10.6-15.8 L HEMATOCRIT (test code = HCT) 29.4 % 31.8-47.4 L MEAN CELL VOLUME (test code = MCV) 91.9 fL 80.1-101.1 N HGB [id number] 12:52:00 Test Item Value Reference Range Interpretation Comments RED BLOOD CELL (test code = RBC) 3.28 M/mm3 3.8-5.5 L HEMOGLOBIN (test code = HGB) 9.9 G/DL 10.6-15.8 L HEMATOCRIT (test code = HCT) 30.0 % 31.8-47.4 L MEAN CELL VOLUME (test code = MCV) 91.5 fL 80.1-101.1 N URINALYSIS [id number] 10:16:00 Test Item Value Reference Range Interpretation Comments UA COLOR (test code = YELLOW DESCRIPT YELLOW COLU) UA APPEARANCE (test code HAZY DESCRIPT CLEAR = APPU) UA GLUCOSE DIPSTICK (test NEGATIVE (0) mg/dL (NEG) 0 code = DGLUU) UA BILIRUBIN DIPSTICK NEGATIVE (0) mg/dL (NEG) 0 (test code = BILU) UA KETONE DIPSTICK (test 0 (NEG) mg/dL (NEG) 0 code = KETU) UA SPECIFIC GRAVITY (test 1.027 SG 1.001-1.035 code = SGU) UA BLOOD DIPSTICK (test NEGATIVE (0) mg/DL (NEG) 0 code = VAHID) UA PH DIPSTICK (test code 6.0 pH UNITS 4.6-8.0 = ZULEIMA) UA PROTEIN DIPSTICK (test 100 (2+) mg/dL <30 (1+) A code = PROU) UA UROBILINIOGEN DIPSTICK 4 mg/dL <2.0 (1+) A (test code = URO) UA NITRITE DIPSTICK (test NEGATIVE (0) SCREEN NEG code = LEXI) UA LEUKOCYTE ESTERASE NEGATIVE (0) (NEG) 0 DIPSTICK (test code = Leuk/mcL LEUU) UA WBC (test code = WBCU) 3-5 #WBC/HPF 0-3 UA RBC (test code = RBCU) 0-3 #RBC/HPF 0-3 UA BACTERIA (test code = TRACE >0 /HPF NONE-FEW BACU) UA MUCUS (test code = MANY /LPF NONE A MUCU) HGB [id number] 10:08:00 Test Item Value Reference Range Interpretation Comments RED BLOOD CELL (test code = RBC) 3.80 M/mm3 3.8-5.5 N HEMOGLOBIN (test code = HGB) 11.5 G/DL 10.6-15.8 N HEMATOCRIT (test code = HCT) 34.8 % 31.8-47.4 N MEAN CELL VOLUME (test code = MCV) 91.6 fL 80.1-101.1 N - US PREG UT [id number] 08:47:00 Patient Name: ASHLEY HAYNES Unit No: [id number] EXAMS: CPT CODE: [id number] US PREG UT TRANSVAGINAL [id number] Location: [id number] Endovaginal obstetric ultrasound. History: Pain Technique and Findings: Technique: Aguillon scale, color Doppler pelvic ultrasound imaging was performed. COMPARISON: None. The uterus measures 10.9 x 5.2 x 5.8 cm. There is no intrauterine gestational sac. The endometrial stripe measures 1.8 cm in thickness and appears homogenous. There appears to be debris within thecervix. The ovaries not visualized on this exam. There is no evidence offree fluid within the pelvis. Impression: No intrauterine gestational sac.Debris within the cervix may reflect hemorrhage/products of conception, correlate clinically. However, in the presence of a positive test without an intrauterine , an ectopic cannot be excluded. Follow-up serial beta hCG and sonographic evaluation is advised. Ovaries not visualized on this exam. at 0847 Reported and signed by: Christopher Avendaño MD CC: Anu Edwards MD Technologist: Eri Dalton [facility] Trnscrbd D/ (0847) [email or web address] P robe: [id number] Orig Print D/T: S: 12/26/2019 (0850) Probe: JANET Goncalves NAME: ASHLEY HAYNES [address] [place] [address] PHYS: Anu [place], [place] [address] : 2000 AGE: 19 SEX: F LOC: B.ERS PHONE #: EXAM DATE: 12/26/2019 STATUS: REG ER FAX #: [phone] RAD NO: Page 1 Signed ReportBASIC METABOLIC [id number] 08:44:00 Test Item Value Reference Range Interpretation Comments SODIUM (test code = 138.0 mmol/L 133-144 N NA) POTASSIUM (test code 3.4 mmol/L 3.5-5.1 L = K) CHLORIDE (test code 106 mmol/L 95-105 H = CL) CARBON DIOXIDE (test 24 mmol/L 21-32 N code = CO2) ANION GAP (test code 8.0 GAP calc 4.0-15.0 N = GAP) GLUCOSE (test code = 109 MG/DL 70-110 N GLU) BLOOD UREA NITROGEN 11 MG/DL 7-18 N (test code = BUN) CREATININE (test 0.84 MG/DL 0.55-1.30 N Results may be code = CREAT) depressed if patient is takingN-Acetylc yste ine (NAC) and Metamizole (Dipyrone). CALCIUM (test code = 9.0 MG/DL 8.5-10.1 N CA) INDEX HEMOLYSIS 2 TRACE 10-25 1 NORMAL (test code = MG Index/DL HEMINDEX) INDEX ICTERIC (test 1 NORMAL <2 MG 1 NORMAL code = ICTINDEX) Index/DL INDEX LIPEMIA (test 1 NORMAL <50 MG 1 NORMAL code = LIPINDEX) Index/DL HCG [id number] 08:44:00 Test Item Value Reference Range Interpretation Comments HCG SERUM (test 2542 mi-IU/ML 0-3 H HCG RA NGES DURING code = HCG) NORMAL PREGNANC YPOST LMP 3-4 WEEKS 9 - 130 MIU/ML4- 5 WEEKS 75 - 2,600 MIU/ML5-6 WEE KS 850 - 20,800 MIU/ML6-7 WEE KS 4,000 - 100,20 0 MIU/ML7-12 WEE KS 11,500 - 289,0 00 MIU/ML12-16 WEE KS 18,300 - 137,0 00 MIU/ML16-29 WEE KS 1,400 - 53,00 0 MIU/ML 29-41 WE EKS 940 - 60,000 MIU/ML BASIC METABOLIC [id number] 08:28:00 Test Item Value Reference Range Interpretation Comments SODIUM (test code = 138.0 mmol/L 133-144 N NA) POTASSIUM (test code 3.4 mmol/L 3.5-5.1 L = K) CHLORIDE (test code 106 mmol/L 95-105 H = CL) CARBON DIOXIDE (test 24 mmol/L 21-32 N code = CO2) ANION GAP (test code 8.0 GAP calc 4.0-15.0 N = GAP) GLUCOSE (test code = 109 MG/DL 70-110 N GLU) BLOOD UREA NITROGEN 11 MG/DL 7-18 N (test code = BUN) CREATININE (test 0.84 MG/DL 0.55-1.30 N Results may be code = CREAT) depressed if patient is takingN-Acetylc yste ine (NAC) and Metamizole (Dipyrone). CALCIUM (test code = 9.0 MG/DL 8.5-10.1 N CA) INDEX HEMOLYSIS 2 TRACE 10-25 1 NORMAL (test code = MG Index/DL HEMINDEX) INDEX ICTERIC (test 1 NORMAL <2 MG 1 NORMAL code = ICTINDEX) Index/DL INDEX LIPEMIA (test 1 NORMAL <50 MG 1 NORMAL code = LIPINDEX) Index/DL HCG [id number] 08:28:00 Test Item Value Reference Range Interpretation Comments HCG SERUM (test code = HCG) mi-IU/ML 0-3 CBC W/O [id number] 08:09:00 Test Item Value Reference Range Interpretation Comments WHITE BLOOD CELL (test code = WBC) 9.6 K/mm3 4.1-12.1 N RED BLOOD CELL (test code = RBC) 4.36 M/mm3 3.8-5.5 N HEMOGLOBIN (test code = HGB) 13.0 G/DL 10.6-15.8 N HEMATOCRIT (test code = HCT) 39.3 % 31.8-47.4 N MEAN CELL VOLUME (test code = MCV) 90.1 fL 80.1-101.1 N MEAN CELL HGB (test code = MCH) 29.8 pg 25.3-35.3 N MEAN CELL HGB CONCETRATION (test 33.1 G/DL 32.7-35.1 N code = MCHC) RED CELL DISTRIBUTION WIDTH (test 13.2 % 12.2-16.4 N code = RDW) PLATELET COUNT (test code = PLT) 290 K/mm3 155-337 N MEAN PLATELET VOLUME (test code = 9.6 fL 6.8-11.2 N MPV) HCG [id number] 00:44:00 Test Item Value Reference Range Interpretation Comments HCG POC (test > 2000.0 IU/L 0-4.9 H code = HCGPOC) Re sults of 5.0-25.0 IU/L a re indeterminate a nd do not ruleout pregnan cy. Because HCG lexie ues double approxim ately every48 hours i n a normal pregnanc y, patients with l ow levels ofHCG should be resampled and r etested after 48 hours toconfirm . COMPREHENSIVE METABOLIC [id number] 23:59:00 Test Item Value Reference Range Interpretation Comments SODIUM (test code = 137 mmol/L 137-145 N NA) POTASSIUM (test code = 5.0 mmol/L 3.4-5.0 N K) CHLORIDE (test code = 104 mmol/L 98-107 N CL) CARBON DIOXIDE (test 24 mmol/L 22-30 N code = CO2) GLUCOSE (test code = 88 mg/dL 74-106 N GLU) BLOOD UREA NITROGEN 12 mg/dL 7-17 N (test code = BUN) GLOMERULAR FILTRATION 135 >60 The es timated RATE (test code = GFR) glome rular filtration rate is compute d usingpatient ra ce, age (>18), sex, and serum creatinin e. If anyof the neede d data elements are mi ssing the Laboratory cannot compute an yehuda mation of the glomerul ar filtration rate . CREATININE (test code 0.6 mg/dL 0.5-1.0 N = CREAT) TOTAL PROTEIN (test 8.3 g/dL 6.3-8.2 H code = PROT) ALBUMIN (test code = 4.7 g/dL 3.5-5.0 N ALB) CALCIUM (test code = 9.5 mg/dL 8.4-10.2 N CA) BILIRUBIN TOTAL (test 0.6 mg/dL 0.2-1.3 N code = BILT) BILIRUBIN CONJUGATED 0 mg/dL 0-0.3 N ~~~~~~~ ~~~~~~~~~~~~~~ (test code = BILCON) ~~~~~~~ ~~~~~~~~~~~~~~ ~~~~~~~~~~~~~~~ ~~~CON JUGATED BILIRUB IN IS THE REPLACEMENT ASSAY FOR DIRECTBILIRUBIN .~~~~~ ~~~~~~~~~~~~~~~ ~~~~~~ ~~~~~~~~~~~~~~~ ~~~~~~ ~~~~~~~~~~~~~ BILIRUBIN UNCONJUGATED 0.2 mg/dL 0-1.1 N (test code = BILUNC) SGOT/AST (test code = 38 U/L 15-46 N AST) SGPT/ALT (test code = 29 U/L 13-69 N ALT) ALKALINE PHOSPHATASE 65 U/L 38-126 N (test code = ALKP) [id number] 23:59:00 Test Item Value Reference Range Interpretation Comments LIPASE (test code = LIP) 70 U/L 23-300 N COMPREHENSIVE METABOLIC [id number] 23:57:00 Test Item Value Reference Range Interpretation Comments SODIUM (test code = 137 mmol/L 137-145 N NA) POTASSIUM (test code = 5.0 mmol/L 3.4-5.0 N K) CHLORIDE (test code = 104 mmol/L 98-107 N CL) CARBON DIOXIDE (test 24 mmol/L 22-30 N code = CO2) GLUCOSE (test code = 88 mg/dL 74-106 N GLU) BLOOD UREA NITROGEN 12 mg/dL 7-17 N (test code = BUN) GLOMERULAR FILTRATION 135 >60 The es timated RATE (test code = GFR) glome rular filtration rate is compute d usingpatient ra ce, age (>18), sex, and serum creatinin e. If anyof the neede d data elements are mi ssing the Laboratory cannot compute an yehuda mation of the glomerul ar filtration rate . CREATININE (test code 0.6 mg/dL 0.5-1.0 N = CREAT) TOTAL PROTEIN (test 8.3 g/dL 6.3-8.2 H code = PROT) ALBUMIN (test code = 4.7 g/dL 3.5-5.0 N ALB) CALCIUM (test code = 9.5 mg/dL 8.4-10.2 N CA) BILIRUBIN TOTAL (test 0.6 mg/dL 0.2-1.3 N code = BILT) BILIRUBIN CONJUGATED 0 mg/dL 0-0.3 N ~~~~~~~ ~~~~~~~~~~~~~~ (test code = BILCON) ~~~~~~~ ~~~~~~~~~~~~~~ ~~~~~~~~~~~~~~~ ~~~CON JUGATED BILIRUB IN IS THE REPLACEMENT ASSAY FOR DIRECTBILIRUBIN .~~~~~ ~~~~~~~~~~~~~~~ ~~~~~~ ~~~~~~~~~~~~~~~ ~~~~~~ ~~~~~~~~~~~~~ BILIRUBIN UNCONJUGATED 0.2 mg/dL 0-1.1 N (test code = BILUNC) SGOT/AST (test code = 38 U/L 15-46 N AST) SGPT/ALT (test code = 29 U/L 13-69 N ALT) ALKALINE PHOSPHATASE 65 U/L 38-126 N (test code = ALKP) [id number] 23:57:00 Test Item Value Reference Range Interpretation Comments LIPASE (test code = LIP) U/L 23-300 URINALYSIS [id number] 23:53:00 Test Item Value Reference Range Interpretation Comments UA COLOR (test code = COLU) Yellow Yellow UA APPEARANCE (test code = Slightly-Cloudy Clear APPU) UA GLUCOSE DIPSTICK (test Negative Negative code = DGLUU) UA BILIRUBIN DIPSTICK (test Negative Negative code = BILU) UA KETONE DIPSTICK (test code Negative mg/dL Negative = KETU) UA SPECIFIC GRAVITY (test 1.020 <1.030 code = SGU) UA BLOOD DIPSTICK (test code Negative Negative = VAHID) UA PH DIPSTICK (test code = 6.0 5.0-8.0 ZULEIMA) UA PROTEIN DIPSTICK (test NEGATIVE mg/dL Negative code = PROU) UA UROBILINOGEN DIPSTICK 2.0 mg/dL Negative A (test code = URO) UA NITRITE DIPSTICK (test Negative Negative code = LEXI) UA LEUKOCYTE ESTERASE 2+ Negative A DIPSTICK (test code = LEUU) UA WBC (test code = WBCU) 11-20 /HPF <4-5 A UA RBC (test code = RBCU) 0-3 /HPF <4-5 UA BACTERIA (test code = NONE SEEN /HPF None-Rare BACU) UA SQUAMOUS CELLS (test code 6-15 (FEW) /HPF 0-5 (RARE) A = SQU) UA MUCUS (test code = MUCU) Rare /LPF <Rare A CBC W/AUTO [id number] 23:46:00 Test Item Value Reference Range Interpretation Comments WHITE BLOOD CELL (test code = 8.0 x10 3/uL 5.0-12.0 N WBC) RED BLOOD CELL (test code = 5.08 x10 6/uL 4.20-5.40 N RBC) HEMOGLOBIN (test code = HGB) 15.5 g/dL 12.0-16.0 N HEMATOCRIT (test code = HCT) 45.9 % 36.0-46.0 N MEAN CELL VOLUME (test code = 90 fL 81-99 N MCV) MEAN CELL HGB (test code = MCH) 30.5 pg 27-31 N MEAN CELL HGB CONCENTRATION 33.8 g/dL 33-37 N (test code = MCHC) RED CELL DISTRIBUTION WIDTH 13.3 % 11.5-15.5 N (test code = RDW) PLATELET COUNT (test code = 298 x10 3/uL 130-400 N PLT) MEAN PLATELET VOLUME (test code 9.8 fL 9.4-16.4 N = MPV) NEUTROPHIL % (test code = NT%) 60.9 % 43-65 N IMMATURE GRANULOCYTE % (test 0.2 % 0.0-2.0 N code = IG%) LYMPHOCYTE % (test code = LY%) 30.4 % 20.5-45.5 N MONOCYTE % (test code = MO%) 5.4 % 5.5-11.7 L EOSINOPHIL % (test code = EO%) 2.7 % 0.9-2.9 N BASOPHIL % (test code = BA%) 0.4 % 0.2-1.0 N NUCLEATED RBC % (test code = 0.0 % 0-1.0 N NRBC%) NEUTROPHIL # (test code = NT#) 4.88 x10 3/uL 2.2-4.8 H IMMATURE GRANULOCYTE # (test 0.02 x10 3/uL 0-0.03 N code = IG#) LYMPHOCYTE # (test code = LY#) 2.44 x10 3/uL 1.3-2.9 N MONOCYTE # (test code = MO#) 0.43 x10 3/uL 0.3-0.8 N EOSINOPHIL # (test code = EO#) 0.22 x10 3/uL 0.0-0.2 H BASOPHIL # (test code = BA#) 0.03 x10 3/uL 0.0-0.1 N HCG [id number] 19:32:00 Test Item Value Reference Range Interpretation Comments HCG BLOOD (test 71600 IU/L HCG in non-p regnant code = HCG) individuals < 5 .0 IU/L (mIU/mL)HCG res ults greater than or equal t o 25 IU/L are consideredPosit elpidio. Detection of ve ry low levels of HCG does not excludepregnanc y. Repeat testing after 4 8 hours is recommended. P regnant Gestational Age :1-10 weeks 44.71-256,740 IU/L(mIU/mL)11- 15 weeks 1 1,556-256,380 IU/L(mIU/mL)16- 22 weeks 7,480.8-111,954 IU/L(mIU/mL)23- 40 weeks 1,531.1-101,556 IU/L(mIU/mL) This assay shou ld not be used to diagnos e any conditionunrela ryne to . - DUP AB/PEL/SC/[id number] 18:06:00 [place]: St: PRE Name: ASHLEY HAYNES [facility] : 2000 Age/S: 19/F [address] Unit#: [id number] Loc: [place] [address] Phys: Katlyn Multani [employer] Acct: [id number] Dis Date: Status: PRE ER PHONE #: [phone] Exam Date: 12/18/2019 1748 FAX #: [phone] Reason: vag bleeding EXAMS: CPT CODE: [id number] DUP AB/PEL/SC/LTD 47442 Exam: First trimester obstetrical sonogram. Location: H 12 History: vag bleeding Technique: A real- time transabdominal pelvic sonogram was performed. A transvaginal exam was performed to better evaluate the pelvic anatomy. COMPARISON: 12/16/2019 Findings: A single fetus is found with a crown- rump length of 3.37 cm, which gives an estimated gestational age of 8 weeks 4 days. No cardiac activity was seen by the metallurgy teacher. The gestational reaction is unremarkable. The uterus is normal in size, shape and echotexture and measures 13.1 x 6.5 x7.0 cm. The ovaries are well visualized. The right ovary measures 2.6 x 1.8 x 1.6 cm. The leftovary measures 2.9 x 2.4 x 2.2 cm. There is good blood flow to both ovaries. No adnexal mass is seen. No free fluid is found the cul-de-sac. Impression: Findings inkeeping with a demise. at 1806 Reported and signed by: Inder Davis CC: Technologist: Maribel Baxter [facility] PAGE 1 Signed Report [place]: St: PRE Name: ASHLEY HAYNES [facility] : 2000 Age/S: 19/F [address] Unit #: [id number] Loc: [place] [address] Phys: Katlyn Multani [employer] Acct: [id number] Dis Date: Status: PRE ER PHONE #: [phone] Exam Date: 12/18/20191747 FAX #: [phone] Reason: vag bleeding EXAMS: CPT CODE: [id number] DUP AB/PEL/SC/LTD 57231 <Continued> Trnscrd Date/Time/By: 12/18/2019 (1806) : By: Joleen PAGE 2 Signed Report- US PREG UT [id number] 18:06:00 [place]: St: PRE Name: ASHLEY HAYNES [facility] : 2000 Age/S: 19/F [address] Unit#: [id number] Loc: [place] [address] Phys: Katlyn Multani [employer] Acct: [id number] Dis Date: Status: PRE ER PHONE #: [phone] Exam Date: 12/18/20191747 FAX #: [phone] Reason: vag bleeding EXAMS: CPT CODE: [id number] US PREG UT TRANSVAGINAL 71018 Exam: First trimester obstetrical sonogram. Locat ion: H 12 History: vag bleeding Technique: A real-time transabdominal pelvic sonogram was performed. A transvaginal exam was performed to better evaluate the pelvic anatomy. COMPARISON: 12/16/2019 Findings: A single fetus is found with a crown-rump length of 3.37 cm, which gives an estimated gestational age of 8 weeks 4 days. No cardiac activity was seen by the metallurgy teacher. The gestational reaction is unremarkable. The uterus is normal in size, shape and echotexture and measures 13.1 x 6.5 x7.0 cm. The ovaries are well visualized. The right ovary measures 2.6 x 1.8 x 1.6 cm. The leftovary measures 2.9 x 2.4 x 2.2 cm. There is good blood flow to both ovaries. No adnexal mass is seen. No free fluid is found the cul-de-sac. Impression: Findings inkeeping with a demise. at 1806 Reported and signed by: Inder Davis CC: Technologist: Maribel Baxter [facility]; S#: [id number] TV Trnscrd Date/Time/By: 12/18/2019 (1805) : By: Joleen PAGE 1 SignedReport Howard: MCSt: PRE -- Name: ASHLEY HAYNES [facility] : 2000 Age/S: 19/F [address] Unit #: [id number] Loc: [place] [address] Phys: Katlyn Multani [employer] Acct: [id number] Date: Status: PRE ER PHONE #: [phone] Exam Date: 12/18/2019 1749 FAX #: [phone] Reason: vag bleeding EXAMS: CPT CODE: [id number] US PREG UT TRANSVAGINAL 67425 <Continued> Orig Print D/T: S: 12/18/2019 (699) PAGE 2 Signed Report- US PREG 1ST [id number] 18:06:00 [place]: St: PRE Name: ASHLEY HAYNES [facility] [place] : 2000 Age/S: 19/F [address] Unit#: [id number] Loc: [place] [address] Phys: Katlyn Multani [employer] Acct: [id number] Dis Date: Status: PRE ER PHONE #: [phone] Exam Date: 12/18/2019 1745 FAX #: [phone] Reason: vag bleeding EXAMS: CPT CODE: [id number] US PREG 1ST TRIMTR 73342 Exam: First trimester obstetrical sonogram. Location: H 12 History: vag bleeding Technique: A real-time transabdominal pelvic sonogram was performed. A transvaginal exam was performed to better evaluate the pelvic anatomy. COMPARISON: 12/16/2019 Findings: A single fetus is found with a crown-rump length of 3.37 cm, which gives an estimated gestational age of 8 weeks 4 days. No cardiac activity was seen by the metallurgy teacher. The gestational reaction is unremarkable. The uterus is normal in size, shape and echotexture and measures 13.1 x 6.5 x7.0 cm. The ovaries are well visualized. The right ovary measures 2.6 x 1.8 x 1.6 cm. The leftovary measures 2.9 x 2.4 x 2.2 cm. There is good blood flow to both ovaries. No adnexal mass is seen. No free fluid is found the cul-de-sac. Impression: Findings inkeeping with a demise. at 1806 Reported and signed by: Inder Davis CC: Technologist: Maribel Baxter RDMS Trnscrd Date/Time/By: 12/18/2019 (1805) : By: Joleen PAGE 1 SignedReport Howard: MCSt: PRE -- Name: ASHLEY HAYNES [facility] [place] : 2000 Age/S: 19/F [address] Unit #: [id number] Loc: [place] [address] Phys: Katlyn Multani NP Acct: [id number] Date: Status: PRE ER PHONE #: [phone] Exam Date: 12/18/2019 1747 FAX #: [phone] Reason: vag bleeding EXAMS: CPT CODE: [id number] PREG 1ST TRIMTR 90932 <Continued> Orig Print D/T: S: 12/18/2019 (1809) PAGE 2 Signed ReportHCG [id number] 18:48:00 Test Item Value Reference Range Interpretation Comments HCG BLOOD (test 87511 IU/L HCG in non-p regnant code = HCG) individuals < 5 .0 IU/L (mIU/mL)HCG res ults greater than or equal t o 25 IU/L are consideredPosit elpidio. Detection of ve ry low levels of HCG does not excludepregnanc y. Repeat testing after 4 8 hours is recommended. P regnant Gestational Age :1-10 weeks 44.71-256,740 IU/L(mIU/mL)11- 15 weeks 1 1,556-256,380 IU/L(mIU/mL)16- 22 weeks 7,480.8-111,954 IU/L(mIU/mL)23- 40 weeks 1,531.1-101,556 IU/L(mIU/mL) This assay shou ld not be used to diagnos e any conditionunrela ryne to . COMPREHENSIVE METABOLIC [id number] 17:49:00 Test Item Value Reference Range Interpretation Comments SODIUM (test code = 135 mmol/L 137-145 L NA) POTASSIUM (test code = 4.1 mmol/L 3.4-5.0 N K) CHLORIDE (test code = 104 mmol/L 98-107 N CL) CARBON DIOXIDE (test 22 mmol/L 22-30 N code = CO2) GLUCOSE (test code = 82 mg/dL 74-106 N GLU) BLOOD UREA NITROGEN 10 mg/dL 7-17 N (test code = BUN) GLOMERULAR FILTRATION 135 >60 The es timated RATE (test code = GFR) glome rular filtration rate is compute d usingpatient ra ce, age (>18), sex, and serum creatinin e. If anyof the neede d data elements are mi ssing the Laboratory cannot compute an yehuda mation of the glomerul ar filtration rate . CREATININE (test code 0.6 mg/dL 0.5-1.0 N = CREAT) TOTAL PROTEIN (test 7.6 g/dL 6.3-8.2 N code = PROT) ALBUMIN (test code = 4.3 g/dL 3.5-5.0 N ALB) CALCIUM (test code = 9.1 mg/dL 8.4-10.2 N CA) BILIRUBIN TOTAL (test 0.6 mg/dL 0.2-1.3 N code = BILT) BILIRUBIN CONJUGATED 0 mg/dL 0-0.3 N ~~~~~~~ ~~~~~~~~~~~~~~ (test code = BILCON) ~~~~~~~ ~~~~~~~~~~~~~~ ~~~~~~~~~~~~~~~ ~~~CON JUGATED BILIRUB IN IS THE REPLACEMENT ASSAY FOR DIRECTBILIRUBIN .~~~~~ ~~~~~~~~~~~~~~~ ~~~~~~ ~~~~~~~~~~~~~~~ ~~~~~~ ~~~~~~~~~~~~~ BILIRUBIN UNCONJUGATED 0.3 mg/dL 0-1.1 N (test code = BILUNC) SGOT/AST (test code = 29 U/L 15-46 N AST) SGPT/ALT (test code = 22 U/L 13-69 N ALT) ALKALINE PHOSPHATASE 57 U/L 38-126 N (test code = ALKP) CBC W/AUTO [id number] 17:41:00 Test Item Value Reference Range Interpretation Comments WHITE BLOOD CELL (test code = 6.3 x10 3/uL 5.0-12.0 N WBC) RED BLOOD CELL (test code = 4.76 x10 6/uL 4.20-5.40 N RBC) HEMOGLOBIN (test code = HGB) 14.6 g/dL 12.0-16.0 N HEMATOCRIT (test code = HCT) 42.7 % 36.0-46.0 N MEAN CELL VOLUME (test code = 90 fL 81-99 N MCV) MEAN CELL HGB (test code = MCH) 30.7 pg 27-31 N MEAN CELL HGB CONCENTRATION 34.2 g/dL 33-37 N (test code = MCHC) RED CELL DISTRIBUTION WIDTH 13.3 % 11.5-15.5 N (test code = RDW) PLATELET COUNT (test code = 303 x10 3/uL 130-400 N PLT) MEAN PLATELET VOLUME (test code 10.2 fL 9.4-16.4 N = MPV) NEUTROPHIL % (test code = NT%) 56.2 % 43-65 N IMMATURE GRANULOCYTE % (test 0.3 % 0.0-2.0 N code = IG%) LYMPHOCYTE % (test code = LY%) 30.8 % 20.5-45.5 N MONOCYTE % (test code = MO%) 8.8 % 5.5-11.7 N EOSINOPHIL % (test code = EO%) 3.3 % 0.9-2.9 H BASOPHIL % (test code = BA%) 0.6 % 0.2-1.0 N NUCLEATED RBC % (test code = 0.0 % 0-1.0 N NRBC%) NEUTROPHIL # (test code = NT#) 3.56 x10 3/uL 2.2-4.8 N IMMATURE GRANULOCYTE # (test 0.02 x10 3/uL 0-0.03 N code = IG#) LYMPHOCYTE # (test code = LY#) 1.95 x10 3/uL 1.3-2.9 N MONOCYTE # (test code = MO#) 0.56 x10 3/uL 0.3-0.8 N EOSINOPHIL # (test code = EO#) 0.21 x10 3/uL 0.0-0.2 H BASOPHIL # (test code = BA#) 0.04 x10 3/uL 0.0-0.1 N URINALYSIS [id number] 17:32:00 Test Item Value Reference Range Interpretation Comments UA COLOR (test code = COLU) Yellow Yellow UA APPEARANCE (test code = Cloudy Clear A APPU) UA GLUCOSE DIPSTICK (test Negative Negative code = DGLUU) UA BILIRUBIN DIPSTICK (test Negative Negative code = BILU) UA KETONE DIPSTICK (test code Negative mg/dL Negative = KETU) UA SPECIFIC GRAVITY (test 1.026 <1.030 code = SGU) UA BLOOD DIPSTICK (test code Negative Negative = VAHID) UA PH DIPSTICK (test code = 7.0 5.0-8.0 ZULEIMA) UA PROTEIN DIPSTICK (test NEGATIVE mg/dL Negative code = PROU) UA UROBILINOGEN DIPSTICK Negative mg/dL Negative (test code = URO) UA NITRITE DIPSTICK (test Negative Negative code = LEXI) UA LEUKOCYTE ESTERASE NEGATIVE Negative DIPSTICK (test code = LEUU) UA WBC (test code = WBCU) 0-3 /HPF <4-5 UA RBC (test code = RBCU) 0-3 /HPF <4-5 UA BACTERIA (test code = Rare /HPF None-Rare BACU) UA SQUAMOUS CELLS (test code 6-15 (FEW) /HPF 0-5 (RARE) A = SQU) UA MUCUS (test code = MUCU) Rare /LPF <Rare A - US PREG UT [id number] 17:20:00 [place]: St: REG Name: SHMUEL HAYNESCharla Avila [facility] : 2000 Age/S: 19/F [address] Unit#: [id number] Loc: [place] [address] Phys: Madhuri Neely [employer] Acct: [id number] Dis Date: Status: REG ER PHONE #: [phone] Exam Date: 12/16/2019 0927 FAX #: [phone] Reason: pain EXAMS: CPT CODE: [id number] US PREG UT TRANSVAGINAL 40296 Examination: Ultrasound 1st trimester, ultrasound pelvis and ultrasound duplex Location code: H60 Comparison: None Discussion: Clinical history is remarkable for . Back pain. Uterus measures 10.8 x 5.8 x 7.9 cm. An intrauterine gestation is identified with a crown-rump length measuring 1.8 cm which corresponds to gestational age of 8 weeks and 2 days. heart rate is not identified. No free fluid is identified in the pelvis. Right ovary measures 1.3 x 2.0 x 1.5 cm and the left ovary measures 1.9 x 1.6 x 1.5 cm. Duplex evaluation reveals normal flow in both ovaries. Impression: 1. Intrauterine gestation of 8 weeks and 2 days. However heart rate is not identified which would be consistent with demise. Continued follow-up with serial beta-hCG levels is recommended. at 1720 Reported and signed by: Vito Viramontes MD CC: Technologist: Brian Temple RDMS; S#: [id number] TV Trnscrd Date/Time/By: 020 (1720) : By: [email or web address] PAGE 1 Signed Report [place]: St: REG Name: IVYSHMUELCharla Avila [facility] : 2000 Age/S: 19/F [address] Unit #: [id number] Loc: [place] [address] Phys: Madhuri Neely NP Acct: [id number] Dis Date: Status: REG ER PHONE #: [phone] Exam Date: FAX #: [phone] Reason: pain EXAMS: CPT CODE: [id number] PREG [place] TRANSVAGINAL 55894 <Continued> Orig Print D/T: S: 12/16/2019 (1799) PAGE 2 SignedReport - DUP AB/PEL/SC/[id number] 17:20:00 Howard: St: REG Name: ASHLEY HAYNES [facility] [place] : 2000 Age/S: 19/F [address] Unit#: [id number] Loc: [place] [address] Phys: Madhuri Neely [employer] Acct: [id number] Dis Date: Status: REG ER PHONE #: [phone] Exam Date: 12/16/2019 3947 FAX #: [phone] Reason: pain EXAMS: CPT CODE: [id number] DUP AB/PEL/SC/LTD 41198 Examination: Ultrasound 1st trimester, ultrasound pelvis and ultrasound duplex Location code: H60 Comparison: None Discussion: Clinical history is remarkable for . Back pain. Uterus measures 10.8 x 5.8 x 7.9 cm. An intrauterine gestation is identified with a crown-rump length measuring 1.8 cm which corresponds to gestational age of 8 weeks and 2 days. heart rate is not identified. No free fluid is identified in the pelvis. Right ovary measures 1.3 x 2.0 x 1.5 cm and the left ovary measures 1.9 x 1.6 x 1.5 cm. Duplex evaluation reveals normal flow in both ovaries. Impression: 1. Intrauterine gestation of 8 weeks and 2 days. However heart rate is not identified wh ich would be consistent with demise. Continued follow-up with serial beta-hCG levels is recommended. at 1720 Reported and signed by: Vito Viramontes MD CC: Technologist: Brian Temple RDMS Trnscrd Date/Time/By: 12/16/2019 (5502) : By: [email or web address] PAGE 1 Signed Report [place]: [facility]: REG Name: ASHLEY HAYNES [facility] : 2000 Age/S: 19/F [address] Unit #: [id number] Loc: [place] [address] Phys: Madhuri Neely NP Acct: [id number] Dis Date: Status: REG ER PHONE #: [phone] Exam Date: FAX #: [phone] Reason: pain EXAMS: CPT CODE: [id number] DUP AB/PEL/SC/LTD 42157 <Continued> Orig Print D/T: S: 12/16/2019 (7752) PAGE 2 SignedReport - US PREG 1ST [id number] 17:20:00 [facility]: [facility]: REG Name: ASHLEY HAYNES [place] [facility] : 2000 Age/S: 19/F [address] Unit#: [id number] Loc: [place] [address] Phys: Madhuri Neely [employer] Acct: [id number] Dis Date: Status: REG ER PHONE #: [phone] Exam Date: 12/16/2019 468 FAX #: [phone] Reason: pain EXAMS: CPT CODE: [id number] US PREG 1ST TRIMTR 64660 Examination: Ultrasound 1st trimester, ultrasound pelvis and ultrasound duplex Location code: H60 Comparison: None Discussion: Clinical history is remarkable for . Back pain. Uterus measures 10.8 x 5.8 x 7.9 cm. An intrauterine gestation is identified with a crown-rump length measuring 1.8 cm which corresponds to gestational age of 8 weeks and 2 days. heart rate is not identified. No free fluid is identified in the pelvis. Right ovary measures 1.3 x 2.0 x 1.5 cm and the left ovary measures 1.9 x 1.6 x 1.5 cm. Duplex evaluation reveals normal flow in both ovaries. Impression: 1. Intrauterine gestation of 8 weeks and 2 days. However heart rate is not identified wh ich would be consistent with demise. Continued follow-up with serial beta-hCG levels is recommended. at 1720 Reported and signed by: Vito Viramontes MD CC: Technologist: Brian Temple [facility] Trnscrd Date/Time/By: 12/16/2019 (1729) : By: [email or web address] PAGE 1 Signed Report [place]: St: REG Name: HAYNESASHLEY [facility] : 2000 Age/S: 19/F [address] Unit #: [id number] Loc: [place] [address] Phys: Madhuri Neely [employer] Acct: [id number] Dis Date: Status: REG ER PHONE #: [phone] Exam Date: FAX #: [phone] Reason: pain EXAMS: CPT CODE: [id number] US PREG 1ST TRIMTR 17981 <Continued> Orig Print D/T: S: 12/16/2019 (6458) PAGE 2 SignedReport - US RETRO [id number] 17:17:00 [facility]: St: REG Name: ASHLEY HAYNES [facility] : 2000 Age/S: 19/F [address] Unit#: [id number] Loc: [place] [address] Phys: Madhuri Neely [employer] Acct: [id number] Dis Date: Status: REG ER PHONE #: [phone] Exam Date: 12/16/2019 1659 FAX #: [phone] Reason: right flank pain EXAMS: CPT CODE: [id number] [facility] [address] RENAL ULTRASOUND R 16 HISTORY: Renal failure COMPARISON: None available. COMMENT: Real-time sonographic images of both kidneys reveals normal size kidneys bilaterally with right kidney measuring 12.0 x4.9 x 4.3 cm and the left kidney measuring 10.6 x 5.5 x 5.5 cm. Parenchymal cortical thickness is within normal limits. IMPRESSION: Normal bilateral renal ultrasound with noobstruction. at 1717 Reported and signed by: Joaquin Bonds MD CC: Technologist: Brian Temple RDMS Trnscrd Date/Time/By: 12/16/2019 (1717) : By: [email or web address] PAGE 1 Signed Report [place]: St: REG Name: IVYASHLEY [facility] : 2000 Age/S: 19/F [address] Unit #: [id number] Loc: [place] [address] Phys: Madhuri Neely [employer] Acct: [id number] Dis Date: Status: REG ER PHONE #: [phone] Exam Date: 12/16/2019 1659 FAX #: [phone] Reason: right flank pain EXAMS: CPT CODE: [id number] US RETROLTD 94281 <Continued> Orig Print D/T: S: 12/16/2019 (5260) PAGE 2 Signed ReportHCG [id number] 22:07:00 Test Item Value Reference Range Interpretation Comments HCG BLOOD (test < 2.39 IU/L HCG in non-p regnant code = HCG) individuals < 5 .0 IU/L (mIU/mL)HCG res ults greater than or equal t o 25 IU/L are consideredP ositive. Detection of ve ry low levels of HCG d oes not excludepregnanc y. Repeat testing after 4 8 hours is recommended. P regnant Gestational Age :1-10 weeks 44.71-256,740 IU/L(mIU/mL)11- 15 weeks 11,556-256,380 IU/L(mIU/mL)16- 22 weeks 7,480.8-111,954 IU/L(mIU/mL)23- 40 weeks 1,531.1-101,556 IU/L(mIU/mL) Th is assay should not be u sed to diagnose any conditionunrela ryne to . CBC W/AUTO [id number] 21:49:00 Test Item Value Reference Range Interpretation Comments WHITE BLOOD CELL (test code = 5.6 x10 3/uL 5.0-12.0 N WBC) RED BLOOD CELL (test code = 5.11 x10 6/uL 4.20-5.40 N RBC) HEMOGLOBIN (test code = HGB) 14.8 g/dL 12.0-16.0 N HEMATOCRIT (test code = HCT) 45.3 % 36.0-46.0 N MEAN CELL VOLUME (test code = 89 fL 81-99 N MCV) MEAN CELL HGB (test code = MCH) 29.0 pg 27-31 N MEAN CELL HGB CONCENTRATION 32.7 g/dL 33-37 L (test code = MCHC) RED CELL DISTRIBUTION WIDTH 14.3 % 11.5-15.5 N (test code = RDW) PLATELET COUNT (test code = 273 x10 3/uL 130-400 N PLT) MEAN PLATELET VOLUME (test code 10.1 fL 9.4-16.4 N = MPV) NEUTROPHIL % (test code = NT%) 73.4 % 43-65 H IMMATURE GRANULOCYTE % (test 0.4 % 0.0-2.0 N code = IG%) LYMPHOCYTE % (test code = LY%) 15.7 % 20.5-45.5 L MONOCYTE % (test code = MO%) 8.0 % 5.5-11.7 N EOSINOPHIL % (test code = EO%) 2.1 % 0.9-2.9 N BASOPHIL % (test code = BA%) 0.4 % 0.2-1.0 N NUCLEATED RBC % (test code = 0.0 % 0-1.0 N NRBC%) NEUTROPHIL # (test code = NT#) 4.11 x10 3/uL 2.2-4.8 N IMMATURE GRANULOCYTE # (test 0.02 x10 3/uL 0-0.03 N code = IG#) LYMPHOCYTE # (test code = LY#) 0.88 x10 3/uL 1.3-2.9 L MONOCYTE # (test code = MO#) 0.45 x10 3/uL 0.3-0.8 N EOSINOPHIL # (test code = EO#) 0.12 x10 3/uL 0.0-0.2 N BASOPHIL # (test code = BA#) 0.02 x10 3/uL 0.0-0.1 N BASIC METABOLIC [id number] 21:49:00 Test Item Value Reference Range Interpretation Comments SODIUM (test code = 140 mmol/L 137-145 N NA) POTASSIUM (test code 3.4 mmol/L 3.4-5.0 N = K) CHLORIDE (test code = 103 mmol/L 98-107 N CL) CARBON DIOXIDE (test 26 mmol/L 22-30 N code = CO2) GLUCOSE (test code = 87 mg/dL 74-106 N GLU) BLOOD UREA NITROGEN 10 mg/dL 7-17 N (test code = BUN) GLOMERULAR FILTRATION 113 >60 The es timated RATE (test code = glomerular filtration GFR) rate is compute d usingpatient ra ce, age (>18), sex, and serum creatinine. If anyof the needed data elements are mi ssing the Laboratory cannot compute an yehuda mation of the glomerul ar filtration rate . CREATININE (test code 0.7 mg/dL 0.5-1.0 N = CREAT) CALCIUM (test code = 9.2 mg/dL 8.4-10.2 N CA) - DUP AB/PEL/SC/[id number] 21:15:00 [place]: St: REG Name: ASHLEY HAYNES [facility] : 2000 Age/S: 19/F [address] Unit#: [id number] Loc: [place] [address] Phys: Madhuri Neely [employer] Acct: [id number] Dis Date: Status: REG ER PHONE #: [phone] Exam Date: 08/19/20192057 FAX #: [phone] Reason: SEE REASON ON US PREG 1ST TRMTR EXAMS: CPT CODE: [id number] DUP AB/PEL/SC/LTD 90960 EXAM: - US PREG 1ST TRIMTR, - US PREG UT TRANSVAGINAL, - DUP AB/PEL/SC/LTD LOCATION: H57 HISTORY: 19 years-year old Female with PELVIC PAIN COMPARISON: None TECHNIQUE: Transabdominal and endovaginal scans were performed. Spectral Doppler and color Doppler sonographic analysis of the adnexa was performed. FINDINGS: The uterus measures 7.8 x 4.5 x 6.3 cm. No gestation is seen. The right ovary measures 4.7 x 4.3 x 3.8 cm. The left ovary measures 2.1 x 1.5 x 1.5 cm. Bilateral ovarian blood flow is documented by pulse wave Doppler. There is no adnexal mass or free fluid in the cul-de-sac. IMPRESSION: Normal pelvic ultrasound. No intrauterine gestation is seen. Differentialconsiderations include early IUP not yet demonstrable by sonography, recent , or sonographically occult ectopic . Correlation with serial beta-hCG values and Ob-medical records auditor consultation/follow up is recommended. at 5 Reported and signed by: TRINA FINLEY DR CC: Technologist: TIM HANSEN Trnscrd Date/Time/By: 08/19/2019 (2114) : By: Mike PAGE 1 Signed Report [facility]: St: REG -- Name: ASHLEY HAYNES [facility] : 2000 Age/S: 19/F [address] Unit #: [id number] Loc: [place] [address] Phys: Madhuri Neely [employer] Acct: [id number] Dis Date: Status: REG ER PHONE #: [phone] Exam Date: 08/19/20192057 FAX #: [phone] Reason: [facility] CPT CODE: [id number] DUP AB/PEL/SC/LTD 07173 <Continued> Orig PrintD/T: S: 08/19/2019 (2117) PAGE 2 Signed Report- US PREG UT [id number] 21:15:00 [place]: St: REG Name: ASHLEY HAYNES [facility] : 2000 Age/S: 19/F [address] Unit#: [id number] Loc: [place] [address] Phys: Madhuri Neely Buzz HALIE Acct: [id number] Dis Date: Status: REG ER PHONE #: [phone] Exam Date: 08/19/20192057 FAX #: [phone] Reason: SEE REASON ON US PREG 1ST TRMTR EXAMS: CPT CODE: [id number] US PREG UT TRANSVAGINAL 80834 EXAM: - US PREG 1ST TRIMTR, - US PREG UT TRANSVAGINAL, - DUP AB/PEL/SC/LTD LOCATION: H57 HISTORY: 19 years-year old Female with PELVIC PAIN COMPARISON: None TECHNIQUE: Transabdominal and endovaginal scans were performed. Spectral Doppler and color Doppler sonographic analysis of the adnexa was performed. FINDINGS: The uterus measures 7.8 x 4.5 x 6.3 cm. No gestation is seen. The right ovary measures 4.7 x 4.3 x 3.8 cm. The left ovary measures 2.1 x 1.5 x 1.5 cm. Bilateral ovarian blood flow is documented by pulse wave Doppler. There is no adnexal mass or free fluid in the cul-de-sac. IMPRESSION: Normal pelvic ultrasound. No intrauterine gestation is seen. Differentialconsiderations include early IUP not yet demonstrable by sonography, recent , or sonographically occult ectopic . Correlation with serial beta-hCG values and Ob-medical records auditor consultation/follow up is recommended. at 2115 Reported and signed by: TRINA FINLEY DR CC: Technologist: S#: [id number]; TIM HANSEN Trnscrd Date/Time/By: 08/19/2019 (2114) : By: JoleenMKRian PAGE 1 Signed Report [place]: St: REG -- Name: ASHLEY HAYNES [facility] : 2000 Age/S: 19/F [address] Unit #: [id number] Loc: [place] [address] Phys: Madhuri Neely [employer] Acct: [id number] Dis Date: Status: REG ER PHONE #: [phone] Exam Date: 08/19/20192057 FAX #: [phone] Reason: SEE REASON ON US PREG 1ST TRMTR EXAMS: CPT CODE: [id number] US PREG UT TRANSVAGINAL 42652 <Continued> Orig PrintD/T: S: 08/19/2019 (0175) PAGE 2 Signed Report- US PREG 1ST [id number] 21:15:00 [place]: St: REG Name: ASHLEY HAYNES [facility] : 2000 Age/S: 19/F [address] Unit#: [id number] Loc: [place] [address] Phys: Madhuri Neely [employer] Acct: [id number] Dis Date: Status: REG ER PHONE #: [phone] Exam Date: 08/19/20192057 FAX #: [phone] Reason: PELVIC PAIN EXAMS: CPT CODE: [id number] US PREG 1ST TRIMTR 24219 EXAM: - US PREG 1ST TRIMTR, - US PREG UT TRANSVAGINAL, - DUP AB/PEL/SC/LTD LOCATION: H57 HISTORY: 19 years-year old Female with PELVIC PAIN COMPARISON: None TECHNIQUE: Transabdominal and endovaginal scans were performed. Spectral Doppler and color Doppler sonographic analysis of the adnexa was performed. FINDINGS: The uterus measures 7.8 x 4.5 x 6.3 cm. No gestation is seen. The right ovary measures 4.7 x 4.3 x 3.8 cm. The left ovary measures 2.1 x 1.5 x 1.5 cm. Bilateral ovarian blood flow is documented by pulse wave Doppler. There is no adnexal mass or free fluid in the cul-de-sac. IMPRESSION: Normal pelvic ultrasound. No intrauterine gestation is seen. Differentialconsiderations include early IUP not yet demonstrable by sonography, recent , or sonographically occult ectopic . Correlation with serial beta-hCG values and Ob-medical records auditor consultation/follow up is recommended. at 2114 Reported and signed by: TRINA FINLEY DR CC: Technologist: TIM HANSEN Trnderd Date/Time/By: 08/19/2019 (2114) : By: [email or web address] PAGE 1 Signed Report [place]: St: REG -- Name: ASHLEY HAYNES [facility] : 2000 Age/S: 19/F [address] Unit #: [id number] Loc: [place] [address] Phys: Madhuri Neely [employer] Acct: [id number] Dis Date: Status: REG ER PHONE #: [phone] Exam Date: 08/19/20192057 FAX #: [phone] Reason: PELVIC PAIN EXAMS: CPT CODE: [id number] US PREG 1ST TRIMTR 38970 <Continued> Orig PrintD/T: S: 08/19/2019 (2117) PAGE 2 Signed ReportURINALYSIS [id number] 20:38:00 Test Item Value Reference Range Interpretation Comments UA COLOR (test code = COLU) Yellow Yellow UA APPEARANCE (test code = Slightly-Cloudy Clear APPU) UA GLUCOSE DIPSTICK (test Negative Negative code = DGLUU) UA BILIRUBIN DIPSTICK (test Negative Negative code = BILU) UA KETONE DIPSTICK (test code Negative mg/dL Negative = KETU) UA SPECIFIC GRAVITY (test 1.025 <1.030 code = SGU) UA BLOOD DIPSTICK (test code Negative Negative = VAHID) UA PH DIPSTICK (test code = 5.0 5.0-8.0 ZULEIMA) UA PROTEIN DIPSTICK (test NEGATIVE mg/dL Negative code = PROU) UA UROBILINOGEN DIPSTICK 2.0 mg/dL Negative A (test code = URO) UA NITRITE DIPSTICK (test Negative Negative code = LEXI) UA LEUKOCYTE ESTERASE TRACE Negative A DIPSTICK (test code = LEUU) UA WBC (test code = WBCU) 3-5 /HPF <4-5 UA RBC (test code = RBCU) 0-3 /HPF <4-5 UA BACTERIA (test code = Rare /HPF None-Rare BACU) UA SQUAMOUS CELLS (test code 6-15 (FEW) /HPF 0-5 (RARE) A = SQU) UA MUCUS (test code = MUCU) 1+ /LPF <Rare A URINE AND [id number] 18:36:008[facility] [id number] 18:36:00Moderate *ABN*(05/02/18 1:36 PM)[facility] [id number] 18:36:0022[facility] [id number] 18:36:00Negative *NA*(05/02/18 1:36 PM)[facility] [id number] 18:36:00Negative (05/02/18 1:36 PM)[facility] [id number] 18:36:00 Test Item Value Reference Range Interpretation Comments UA Spec Grav (test code = UA Spec 1.012 1 Grav) [facility] [id number] 18:36:00 Test Item Value Reference Range Interpretation Comments UA pH (test code = UA pH) 6.0 1 5.0-8.0 [facility] [id number] 18:36:00Negative (05/02/18 1:36 PM) [facility] [id number] 18:36:00Yellow *NA*(05/02/18 1:36 PM) [facility] [id number] 18:36:00Marked *ABN*(05/02/18 1:36 PM) [facility] KngrcizSTIAQOEZKPPD9606-46-89 17:40:0011.7[facility]annELECTROLYTES 2018-05-02 17:40:00 Test Item Value Reference Range Interpretation Comments B/C Ratio (test code = B/C Ratio) 9 1 6-25 [facility] JhtyctlJNBBYKQIGAZD5668-94-18 17:40:004.5[facility]annELECTROLYTES 2018-05-02 17:40:00 Test Item Value Reference Range Interpretation Comments A/G Ratio (test code = A/G Ratio) 0.7 1 0.7-1.6 [facility] NzfkrgtNKTDTJJCDMNX0943-03-61 17:40:000.4[facility]annELECTROLYTES 2018-05-02 17:40:02882Tugdqcps HjayrsfYJYEEUIKKAAT5789-71-11 17:40:0020[facility] GwulgkrVVXGMUWDPLGF1262-79-66 17:40:0095[facility] YliqgodMZVNNWLKGFIX5711-64-75 17:40:005[facility] OpftcegADPJXCTBVHDM2471-43-64 17:40:000.58[facility] TTXSRELMFAEH3307-48-64 17:40:20218Wwhosaqk YsmnnpsVGBYOAZLSYKN3781-68-31 17:40:0095[facility] MiakijrGHDCZBMVCBBY5441-53-84 17:40:0030[facility] OIIDBEPYPSQR7578-06-36 17:40:38190Qcczjwyi KutnhqjFTFRSWODIWHU1214-57-64 17:40:003.7[facility] NazeqpnVRMVLHRGSOZR6321-99-25 17:40:0023[facility] CJXLYHXAJQJK6256-99-11 17:40:009.0[facility] JyxkjlhPQRAFICUSVOA5261-85-27 17:40:007.5[facility] VytwfivVXWMKQQHLSZX2477-29-32 17:40:003.0[facility] FQDPFWYWTE2423-21-56 17:40:000.1[facility] QoaddlwVWFNKDRXZH9892-99-75 17:40:00 88.4[facility] JrvwvnbUGLHMMKCFT3654-17-20 17:40:000.5[facility]annHEMATOLOGY 2018-05-02 17:40:001.1[facility] RdzqefzEYDHEYLEIR2996-71-27 17:40:003.4[facility] DgitublIYKVAKITMX5729-44-15 17:40:007.7[facility] MtuxdjsZTLILGUCAH8704-79-83 17:40:000.1[facility] YvxjgsuWPLOAEVJYV3702-69-56 17:40:0012.5[facility] WTAIIZTJFW7893-60-70 17:40:000.4[facility] GlxcgbdVXLJNHIVHF4772-17-16 17:40:94023 [facility] BjfndhtJOLLNDRDIR6100-09-96 17:40:008.3[facility]annHEMATOLOGY 2018-05-02 17:40:0033.3[facility] DlaghbwABOWEDSGCV0720-34-42 17:40:0014.1[facility] JqyqvvqVOBEXYMFVQ7957-49-44 17:40:0089.7[facility] TcbpyeyONUDLTFTMD2412-51-09 17:40:00 Test Item Value Reference Range Interpretation Comments MCH (test code = MCH) 29.9 pg 27.0-31.0 [facility] AjduhsjIMTJEUXBAM3064-74-61 17:40:0014.3[facility]annHEMATOLOGY 2018-05-02 17:40:004.77[facility] UcinwcxUJEMPGMLWE3618-27-79 17:40:0042.8[facility] SwqeaqjOVNBVTZCPM2315-97-80 17:40:0014.2[facility]annCHEM KJOUJ5966-15-24 17:40:0090[facility]annDRUG QHSUTD2085-25-23 17:02:00Negative *NA*(04/05/18 12:02 PM)[facility] HJBOQP8280-60-05 17:02:00Negative *NA*(04/05/18 12:02 PM)[facility] KJYUYQ6004-12-40 17:02:00Negative *NA*(04/05/18 12:02 PM)[facility] MZJYHS4755-49-14 17:02:00Negative *NA*(04/05/18 12:02 PM)[facility]ann[facility] QKPGFF9661-79-02 17:02:00Negative *NA*(04/05/18 12:02 PM)[facility]annDR[facility] HSBDLX2478-20-21 17:02:00Negative *NA*(04/05/18 12:02 PM)[facility]annDR[facility] QCJQBG4819-44-05 17:02:00Negative *NA*(04/05/18 12:02 PM)[facility]annDR[facility] ULQMLR9333-21-08 17:02:00See Note (04/05/18 12:02 PM)[facility] OMQPR5628-34-14 17:02:00Negative (04/05/18 12:02 PM) [facility] QKPKE9930-06-92 17:02:00Moderate *ABN*(04/05/18 12:02 PM)[facility] DZHJS6011-48-78 17:02:003[facility] OESAX4877-00-84 17:02:007[facility] GNOXK3831-89-53 17:02:00 Test Item Value Reference Range Interpretation Comments UA pH (test code = UA pH) 8.0 1 5.0-8.0 [facility] HWDZW0180-30-01 17:02:00Negative *NA*(04/05/18 12:02 PM)[facility] NMIOD0590-41-39 17:02:00Amber *ABN*(04/05/18 12:02 PM)[facility] VZKNJ2406-81-92 17:02:002.0[facility] JDOHD5875-63-89 17:02:00Negative (04/05/18 12:02 PM)[facility] BCSYL7929-04-45 17:02:00 Test Item Value Reference Range Interpretation Comments UA Spec Grav (test code = UA Spec 1.021 1 Grav) [facility] EYAFU0552-49-98 17:02:00Marked *ABN*(04/05/18 12:02 PM) [facility] WXWRJ7923-08-38 22:30:00Trace *ABN*(12/13/17 4:30 PM) [facility] ABGCZ0465-17-79 22:30:00Negative (12/13/17 4:30 PM) [facility] WLXMR3749-57-76 22:30:006[facility] HVNSQ4596-54-49 22:30:008[facility] YYCOH4052-78-58 22:30:00 Test Item Value Reference Range Interpretation Comments UA Spec Grav (test code = UA Spec 1.019 1 Grav) [facility] UPPGO4385-53-98 22:30:00 Test Item Value Reference Range Interpretation Comments UA pH (test code = UA pH) 7.0 1 5.0-8.0 [facility] CQNYW8685-72-72 22:30:00Slight *ABN*(12/13/17 4:30 PM) [facility] XXDLC1560-68-15 22:30:00Moderate *ABN*(12/13/17 4:30 PM)[facility] CFIQY3125-68-62 22:30:00Negative *NA*(12/13/17 4:30 PM)[facility] EFKOR6834-46-95 22:30:00Yellow *NA*(12/13/17 4:30 PM)[facility]annCHEM UAKVJ3653-56-73 22:27:85124Bgvhecaz HermannCHEM PANEL 2017-12-13 22:27:37946Debyiqix HermannCHEM LDGBU5622-84-41 22:27:003.5[facility] HermannCHEM NJNBS4518-19-74 22:27:003.7[facility]annCHEM TIFPS3322-70-68 22:27:0024[facility] HermannCHEM TUCKZ9246-31-28 22:27:009.1[facility] HermannCHEM WXFFT5739-77-73 22:27:21257Yailraga HermannCHEM XIUXL3055-47-91 22:27:0025 [facility]annCHEM BYGDP6343-27-60 22:27:0069[facility] HermannCHEM PANEL 2017-12-13 22:27:000.4[facility] HermannCHEM BGVNS2905-66-52 22:27:007.6[facility] HermannCHEM AOEBJ8005-10-01 22:27:0018[facility] HermannCHEM RQVWN3653-36-52 22:27:007[facility]annCHEM VZTGM5105-56-53 22:27:000.59[facility] HermannCHEM RJTOT2767-71-69 22:27:0086[facility] HermannCHEM FSVKJ7260-57-76 22:27:003.9 [facility]annCHEM YUQGU4709-45-88 22:27:00 Test Item Value Reference Range Interpretation Comments A/G Ratio (test code = A/G Ratio) 0.9 1 0.7-1.6 [facility]annCHE[facility] DWEVP1274-66-31 22:27:008.5[facility] HermannCHEM PANEL 2017-12-13 22:27:00 Test Item Value Reference Range Interpretation Comments B/C Ratio (test code = B/C Ratio) 12 1 6-25 [facility] PiklqfsKKHTCQISCMWUX8262-79-14 22:27:0184601Trogroay HermannHEMATOLOGY 2017-12-13 22:27:0043.8[facility] CmetpwyOHHQBETEWT9327-39-87 22:27:0088.4[facility] KzujqppICMSDYFUCM8382-97-04 22:27:0014.emorial QcuhipvDUNJYXOZMR0117-96-64 22:27:00 Test Item Value Reference Range Interpretation Comments MCH (test code = MCH) 29.4 pg 27.0-31.0 [facility] BniimujVXPQULNUWJ2504-64-42 22:27:0033.2[facility]annHEMATOLOGY 2017-12-13 22:27:71436Azxunpuj GhiqcgjHFTENNLBPX7277-23-44 22:27:0014.6[facility] UocrrywLMCEWURMEL4748-85-29 22:27:008.6[facility] CfpkqqmPQKUHUZRSV7841-60-85 22:27:004.95[facility] MhrvxktUQXXTHDOBJ2249-75-15 22:27:008.2[facility] WSYYMQDIGN2097-31-97 22:27:006.5[facility] EuhlrboUXJTFCKJGL0054-40-12 22:27:000.6 [facility] ZkoadccPNUOKNDMSR7231-06-84 22:27:000.2[facility]annHEMATOLOGY 2017-12-13 22:27:0024.1[facility] MewzmkjQAOOCBVFVM6272-07-09 22:27:0067.0[facility] JqhkyezSRMHISITCR6408-57-50 22:27:005.8[facility] FnvuqgoYKZFKWXPRL2585-92-98 22:27:002.1[facility] LhikagvBVHVFQUIIA9266-57-14 22:27:000.3[facility] QHBALKHIPS2064-55-77 22:27:002.1[facility] RBPOB0399-07-46 21:54:003[facility] KSWKW3008-33-00 21:54:00Large *ABN*(11/28/17 3:54 PM)[facility] WAWHJ1363-39-29 21:54:00Negative (11/28/17 3:54 PM)[facility] TIHLE8562-47-41 21:54:003[facility] UOUWF6104-36-14 21:54:00Moderate *ABN*(11/28/17 3:54 PM)[facility] IFTHK0621-01-66 21:54:00 Test Item Value Reference Range Interpretation Comments UA Spec Grav (test code = UA Spec 1.026 1 Grav) [facility] TXFJQ8569-53-53 21:54:00Clear (11/28/17 3:54 PM) [facility] SPHJY0659-35-49 21:54:00 Test Item Value Reference Range Interpretation Comments UA pH (test code = UA pH) 6.0 1 5.0-8.0 [facility] SCUZB2354-15-31 21:54:00Negative *NA*(11/28/17 3:54 PM) [facility] [id number] 21:54:00Yellow *NA*(11/28/17 3:54 PM) [facility] [id number] 21:30:00 Test Item Value Reference Range Interpretation Comments A/G Ratio (test code = A/G Ratio) 1.0 1 0.7-1.6 [facility] QCSCY3740-65-30 21:30:003.6[facility]annCHEM PANEL 2017-11-28 21:30:00 Test Item Value Reference Range Interpretation Comments B/C Ratio (test code = B/C Ratio) 17 1 6-25 [facility] [id number] 21:30:0010.5[facility]annCHEM PANEL 2017-11-28 21:30:56680Qyehwukd HermannCHEM IJGNW0482-74-38 21:30:0035[facility]annCHE[facility] YZNNR7129-27-44 21:30:007.3[facility]annCHE[facility] LDJMD4165-15-42 21:30:008.7[facility]annCHE[facility] GBORG7956-65-36 21:30:0012[facility]annCHE[facility] ZZQZB8485-60-12 21:30:000.70[facility]CHE[facility] YPVRW3276-71-91 21:30:40589 [facility] LNEJI2022-59-13 21:30:45630Fbxgkeso HermannCHEM PANEL 2017-11-28 21:30:003.5[facility]annCHE[facility] ALKUV1233-67-89 21:30:003.7[facility]annCHE[facility] XIJUU5329-44-00 21:30:0083[facility]annCHE[facility] IDICR8195-52-93 21:30:0024[facility]annCHE[facility] WZKVJ1420-78-20 21:30:0066[facility]annCHE[facility] RJBLB1204-90-68 21:30:0025[facility]annCHE[facility] ZHFLZ3326-66-59 21:30:000.3 [facility] KbhzkvbWVXPQTBUAZGYQ1102-89-72 21:30:887704Saudpadf HermannHEMATOLOGY 2017-11-28 21:30:007.8[facility] IssqfkyPYCSYLAMRV2981-44-64 21:30:004.81[facility] VzmfgzzUWTNEZVVBR0366-27-91 21:30:0088.1[facility] UduntkvJCJIAWXVTD8682-53-43 21:30:0033.4[facility] SzsdsztGDWUCRYSGJ4750-70-39 21:30:00 Test Item Value Reference Range Interpretation Comments MCH (test code = MCH) 29.5 pg 27.0-31.0 [facility] MrkovblWROHXRWSII6332-43-08 21:30:0013.9[facility]annHEMATOLOGY 2017-11-28 21:30:0042.4[facility] GwtrelzMVFJJAEHHK3482-81-60 21:30:0014.2[facility] AtprwitMVUKMRMYHV5716-57-86 21:30:008.4[facility] XbnhuvrEYLMSOEOQU5437-70-46 21:30:79778Uddceyag KdvbrlfUVVAPXCFPA9979-84-97 21:30:000.3[facility] BOCGYRWYTF7601-63-95 21:30:001.8[facility] XvngizyYCZPFVUOQI2650-16-78 21:30:000.5 [facility] NqecsyzEGFIVXAKAB6956-23-87 21:30:004.1[facility]annHEMATOLOGY 2017-11-28 21:30:005.1[facility] EcyipktFMXRLBSMKW5497-28-89 21:30:006.5[facility] KdomjdzFWXOBMCVIT2298-77-06 21:30:000.3[facility] KuwezayQTIAPWYNCP0974-74-94 21:30:0065.4[facility] EephokaNJIFMMGTUO2664-55-88 21:30:0023.7[facility] CARDIAC BMTOULX0693-79-79 12:59:00<0.02[facility] ENZYMES 2017-10-10 12:59:0093[facility] UBXYOXL6911-06-12 12:59:00<1.0 [facility] LKLXCRF1967-69-06 12:59:00<1.1[facility] KSVOR7904-37-15 11:56:002[facility] JLVLV2269-22-49 11:56:002 [facility] TJKKF6888-93-19 11:56:00Negative (10/10/17 5:56 AM) [facility] MRWYE9796-02-45 11:56:00Clear (10/10/17 5:56 AM) [facility] LNUCQ6289-97-13 11:56:00Negative (10/10/17 5:56 AM) [facility] PJBBG8169-55-13 11:56:00Negative *NA*(10/10/17 5:56 AM)[facility] IXIFS9060-90-95 11:56:001.031[facility] TYZLF7903-79-89 11:56:00Yellow *NA*(10/10/17 5:56 AM)[facility] GHTXE8523-93-80 11:56:005.0[facility] ZDYPD6464-21-41 11:56:00Negative (10/10/17 5:56 AM)[facility] ORFNC2528-81-34 11:56:002.0[facility] DCZLEYQ7272-19-46 09:29:00<0.9[facility] XHGQSJP0416-17-95 09:29:00<0.02[facility] ENZYMES 2017-10-10 09:29:00<1.0[facility] SWDOXAH9416-26-88 09:29:55648 [facility]annCHE[facility] AWMLF4703-80-52 09:29:19359Ixgxpjaq HermannCHEM PANEL 2017-10-10 09:29:0092[facility]annCHE[facility] QOWRD8545-39-55 09:29:003.9[facility]annCHE[facility] DKOWB5059-40-70 09:29:000.9[facility]annCHE[facility] ZIGJA5456-67-49 09:29:0011.6[facility]annCHEM UIGNX2069-79-75 09:29:0015[facility]annCHE[facility] CWGKG5109-84-08 09:29:0077[facility]annCHE[facility] NBLHH4353-67-83 09:29:0065 [facility] UGVSL6165-86-59 09:29:000.3[facility]annCHEM PANEL 2017-10-10 09:29:0028[facility]annCHE[facility] QURIB0084-15-21 09:29:003.7[facility]annCHE[facility] GCRJB8987-84-44 09:29:000.92[facility]annCHEM ZULIB5954-94-66 09:29:003.6[facility]annCHE[facility] FYCQA8461-91-69 09:29:56192Refnbngx HermannCHEM YTSSL8207-60-35 09:29:0014[facility]annCHE[facility] TLQKM6987-87-18 09:29:0083 [facility]annCHEM JDONT6104-16-59 09:29:73535Byszvykm HermannCHEM PANEL 2017-10-10 09:29:007.6[facility]annCHEM AAONV7374-44-78 09:29:009.3[facility]annCHEM IWRYJ1073-23-92 09:29:0026[facility] EoebtplIGMZSEYOTNZQS3000-90-37 09:29:00Negative *NA*(10/10/17 3:29 AM)[facility] LoxoeeaGSQBDXXBQL0998-26-99 09:29:000.1[facility] EvsrghzPZVMBOLYVI4854-79-79 09:29:0054.5[facility] FBRRCYENFG4024-72-25 09:29:006.9[facility] XbstoivOBXBCZWLDE6235-74-72 09:29:003.7 [facility] FhuzivpKASKOHNZLK2179-67-06 09:29:0034.3[facility]annHEMATOLOGY 2017-10-10 09:29:000.3[facility] AnhueoxZQQGOQDNSV4762-87-30 09:29:004.5[facility] FjaxxsvLEKIXVPQRR5374-04-09 09:29:000.6[facility] DjuhuxgNKJWREDKQT2348-96-56 09:29:000.6[facility] RrbbztkKQXMCHVEKH8694-80-83 09:29:002.8[facility] QUTMXZUKBH1251-71-44 09:29:00 Test Item Value Reference Range Interpretation Comments PTT (test code = PTT) 28.6 s 22.9-35.8 [facility] DknloqoXDUIXWSQBK6780-26-84 09:29:00 Test Item Value Reference Range Interpretation Comments PT (test code = PT) 12.8 s 12.0-14.7 [facility] OjateptLSHNWRLSLG5167-99-26 09:29:000.96[facility]annHEMATOLOGY 2017-10-10 09:29:57171Imiqpztg DopwwumNCHXCTYEAQ7127-57-59 09:29:0014.2[facility] LzhyeeaLAWTANBXHH1654-38-95 09:29:008.1[facility] SwghzpnMXWVRFSTMY7498-63-64 09:29:0088.6[facility] ReyskhgSTUUVFJSWK4600-98-61 09:29:0033.7[facility] URXYJMIQRF4796-37-33 09:29:00 Test Item Value Reference Range Interpretation Comments MCH (test code = MCH) 29.8 pg 27.0-31.0 [facility] WxdqxsgROUWNONAJF4462-51-62 09:29:0014.6[facility]annHEMATOLOGY 2017-10-10 09:29:0043.3[facility] RasbojfHSRBLQHHFI1869-51-77 09:29:008.2[facility] RakqrsvZBZEHNWLFO1792-70-25 09:29:004.89[facility] STOOL 2016-10-24 15:32:00Small *ABN*(10/24/16 9:32 AM)[facility] STOOL 2016-10-24 15:32:00Negative (10/24/16 9:32 AM)[facility] STOOL 2016-10-24 15:32:00Negative *NA*(10/24/16 9:32 AM)[facility] GJWOS0145-00-15 15:32:00Negative (10/24/16 9:32 AM)[facility] IIOGT6317-59-39 15:32:00Negative *NA*(10/24/16 9:32 AM)[facility] MIEED7894-63-17 15:32:00Negative (10/24/16 9:32 AM)[facility] CGZWF1841-69-44 15:32:000.2[facility] LJPNA2858-26-57 15:32:00 Negative (10/24/16 9:32 AM)[facility] WBIGF2628-27-46 15:32:00 Test Item Value Reference Range Interpretation Comments UA Spec Grav (test code = UA Spec 1.020 1 Grav) [facility] EUIER7486-65-92 15:32:00 Test Item Value Reference Range Interpretation Comments UA pH (test code = UA pH) 6.0 1 5.0-8.0 [facility] BMGFS1465-54-12 15:32:00Yellow *NA*(10/24/16 9:32 AM) [facility] SIBDX8210-78-18 15:32:00Clear (10/24/16 9:32 AM) [facility] RJTM8301-58-89 15:32:00Negative (10/24/16 9:32 AM)[facility]annCHEM CHEBL6703-41-85 08:53:0075[facility]annCHEM VKBNJ2376-06-25 08:53:0073[facility]annCHEM DZIFG5571-62-26 08:53:54319Xfjuwhgy HermannCHEM FGJYA0348-04-55 08:53:000.87[facility]annCHEM UXRGU3810-46-94 08:53:003.6 [facility]annCHE[facility] YUOAI2865-34-37 08:53:009[facility]annCHEM PANEL 2016-03-11 08:53:0016.6[facility]annCHEM BBFIS9213-26-57 08:53:0017[facility]annCHEM YLDWO4465-45-44 08:53:008.0[facility]annCHEM HHZMO6017-28-41 08:53:33613Fddnsrur HermannCHEM MMXHD2863-39-71 04:01:0085[facility] BPKPSAQOOFFR8812-66-18 04:01:90394Vlwsseyt ChppyrkWEUMQKWSCDQN6224-06-96 04:01:0013[facility] BaoodpyFKHEKBYOXFYS9420-27-73 04:01:001.10[facility] VOPRFFZGPXOU4681-51-82 04:01:83843Gjqzthkg FmtwmrgAEFZZROCQHNQ4801-27-85 04:01:003.6[facility] WvwqgoqZMYKHCMFDCCD5484-02-65 04:01:77193Jidpnjqx [facility] OYWNMVTMSYLF2278-57-37 04:01:0010[facility] EmupeggOCPJPEXZOQBO5132-38-61 04:01:00 59[facility] OmqhbaoWJBIUPMXLFRR4702-81-40 04:01:009.7[facility] HermannELECTROLYTES 2016-03-11 04:01:0022.6[facility] SuuplxoGQWQMBDKCIRSY2537-26-22 04:01:00Negative *NA*(03/10/16 11:01 PM)[facility] YsnkawzAXPPLNLQGR5552-19-94 04:01:08892Viwwiinb QhzexvkWCBQMBRLWC0266-38-14 04:01:0014.4[facility] ZohfexsZHVXMUBNHV0437-55-39 04:01:0033.4[facility] YuytqmlGVAADAGLBD9905-08-12 04:01:008.6[facility] OBNCHFQGLB8382-46-99 04:01:0045.6[facility] YgeuciuFNFHQTYYPT3647-50-54 04:01:00 15.2[facility] WiczmwvXZLKJPHLPN7656-20-79 04:01:005.21[facility]annHEMATOLOGY 2016-03-11 04:01:0087.5[facility] UdvaqpcFLNPEORDLY2077-91-42 04:01:00 Test Item Value Reference Range Interpretation Comments MCH (test code = MCH) 29.2 pg 27.0-31.0 [facility] SuhgirmPOJTLYMOFP3396-33-13 04:01:008.2[facility]annHEMATOLOGY 2016-03-11 04:01:009.7[facility] FwgynekGIHPNPKYDA9281-51-67 04:01:005.8[facility] FpxhpspEWVHNYRSHG5065-98-07 04:01:000.3[facility] NcxklmtLCMRLYGPVH3647-30-03 04:01:001.6[facility] XbnintwGMGNFUFWUT7570-21-80 04:01:000.3[facility] TRLSUMIKEE2753-98-52 04:01:000.8[facility] NpxulxwYHFIHNLLTT1130-37-15 04:01:00 19.3[facility] WtzowygKHBHKQZDBO6694-88-29 04:01:0070.4[facility] UXQBW5795-19-36 04:01:00Negative (03/10/16 11:01 PM)[facility] GXKKN4432-04-43 04:01:00 Test Item Value Reference Range Interpretation Comments UA pH (test code = UA pH) 5.5 1 5.0-8.0 [facility] ATEHJ2400-55-63 04:01:00>=1.030 *ABN*(03/10/16 11:01 PM)[facility] PQKFQ2924-96-62 04:01:00Clear (03/10/16 11:01 PM) [facility] QBWKE1461-77-11 04:01:00Yellow *NA*(03/10/16 11:01 PM) [facility] GVXSQ7416-49-24 04:01:00Negative (03/10/16 11:01 PM) [facility] DKDNE0963-88-96 04:01:00Large *ABN*(03/10/16 11:01 PM) [facility] YRXBQ4390-14-92 04:01:00Small *ABN*(03/10/16 11:01 PM) [facility] VQCSP7492-42-67 04:01:00Negative (03/10/16 11:01 PM) [facility] SDVDB2532-70-45 04:01:000.2[facility]
--- NOTE | 2021-02-05 07:48 | EDPHYS ---
Physician Documentation [facility] Name: Yanely Hernandez Age: 20 yrs Sex: Female : 2000 Arrival Date: 02/05/2021 Time: 07:21 Bed 23 Private MD: ED Physician Timur Read HPI: 02/05 07:43 This 20 yrs old Female presents to ER via Unassigned with complaints of Pain kdr With Urination. 07:43 The patient presents with urinary symptoms, dysuria, frequency, urgency. Onset: The kdr symptoms/episode began/occurred gradually, 1 day(s) ago. Modifying factors: The symptoms are alleviated by nothing, the symptoms are aggravated by urinating. Associated signs and symptoms: The patient has no apparent associated signs or symptoms. Severity of symptoms: At their worst the symptoms were moderate, in the emergency department the symptoms are unchanged. The patient has experienced similar episodes in the past, several times. The patient has not recently seen a physician, Last UTI was about six moths ago. Historical: - Allergies: 07:48 No Known Allergies; ss - Home Meds: 07:48 None [Active]; ss - PMHx: 07:48 None; ss - PSHx: 07:48 None; ss - Immunization history:: Adult Immunizations up to date. - Social history:: Smoking status: Patient denies any tobacco usage or history of. ROS: 07:43 Constitutional: Negative for fever, chills, and weight loss, Eyes: Negative for injury, kdr pain, redness, and discharge, ENT: Negative for injury, pain, and discharge, Neck: Negative for injury, pain, and swelling, Cardiovascular: Negative for chest pain, palpitations, and edema, Respiratory: Negative for shortness of breath, cough, wheezing, and pleuritic chest pain, Abdomen/GI: Negative for abdominal pain, nausea, vomiting, diarrhea, and constipation, Back: Negative for injury and pain, MS/Extremity: Negative for injury and deformity, Skin: Negative for injury, rash, and discoloration, Neuro: Negative for headache, weakness, numbness, tingling, and seizure activity. Psych: Negative for depression, anxiety, suicide ideation, homicidal ideation, and hallucinations, Allergy/Immunology: Negative for hives, rash, and allergies, Endocrine: Negative for neck swelling, polydipsia, polyuria, polyphagia, and marked weight changes, Hematologic/Lymphatic: Negative for swollen nodes, abnormal bleeding, and unusual bruising. 07:43 : Positive for urinary symptoms, urinary frequency, burning with urination. Exam: 07:43 Constitutional: This is a well developed, well nourished patient who is awake, alert, kdr and in no acute distress. Head/Face: Normocephalic, atraumatic. Eyes: Pupils equal round and reactive to light, extra-ocular motions intact. Lids and lashes normal. Conjunctiva and sclera are non-icteric and not injected. Cornea within normal limits. Periorbital areas with no swelling, redness, or edema. Neck: Trachea midline, no thyromegaly or masses palpated, and no cervical lymphadenopathy. Supple, full range of motion without nuchal rigidity, or vertebral point tenderness. No Meningismus. Chest/axilla: Normal chest wall appearance and motion. Nontender with no deformity. No lesions are appreciated. Cardiovascular: Regular rate and rhythm with a normal S1 and S2. No gallops, murmurs, or rubs. Normal PMI, no JVD. No pulse deficits. Respiratory: Lungs have equal breath sounds bilaterally, clear to auscultation and percussion. No rales, rhonchi or wheezes noted. No increased work of breathing, no retractions or nasal flaring. Abdomen/GI: Soft, non-tender, with normal bowel sounds. No distension or tympany. No guarding or rebound. No evidence of tenderness throughout. Back: No spinal tenderness. No costovertebral tenderness. Full range of motion. Skin: Warm, dry with normal turgor. Normal color with no rashes, no lesions, and no evidence of cellulitis. MS/ Extremity: Pulses equal, no cyanosis. Neurovascular intact. Full, normal range of motion. Neuro: Awake and alert, GCS 15, oriented to person, place, time, and situation. Cranial nerves II-XII grossly intact. Motor strength 5/5 in all extremities. Sensory grossly intact. Cerebellar exam normal. Normal gait. Psych: Awake, alert, with orientation to person, place and time. Behavior, mood, and affect are within normal limits. Vital Signs: 07:25 BP 133 / 79; Pulse 79; Resp 14; Temp 97.8(TE); Pulse Ox 99% on R/A; Weight 79.38 kg; ss Height 5 ft. 3 in. (160.02 cm); Pain 8/10; 07:25 Body Mass Index 31.00 (79.38 kg, 160.02 cm) MDM: 07:43 Data reviewed: vital signs, nurses notes, lab test result(s). Counseling: I had a kdr detailed discussion with the patient and/or guardian regarding: the historical points, exam findings, and any diagnostic results supporting the discharge/admit diagnosis, lab results, radiology results, the need for outpatient follow up. Response to treatment: the patient's symptoms have mildly improved after treatment, patient is well hydrated. Special discussion: Based on the patient's Hx, exam, and Dx evaluation, there is no indication for emergent surgery or inpatient Tx. It is understood by the patient/guardian that if the Sx's persist or worsen they need to return immediately for re-evaluation. I discussed with the patient/guardian in detail that at this point there is no indication for admission to the hospital. It is understood, however, that if the symptoms persist or worsen the patient needs to return immediately for re-evaluation. 07:47 Patient medically screened. kdr 02/05 07:41 Order name: Urine Dipstick--Ancillary (enter results) 02/05 07:41 Order name: Urine --Ancillary (enter results) 02/05 07:41 Order name: Urine Dipstick-Ancillary [facility] 02/05 07:41 Order name: Urine --Ancillary [facility] 02/05 08:09 Order name: Urine Culture 02/05 07:29 Order name: Urine Dipstick-Ancillary (obtain specimen); Complete Time: 07:39 kdr 02/05 07:29 Order name: Urine Test (obtain specimen); Complete Time: 07:39 kdr Administered Medications: 08:04 Drug: Tylenol #3 (300 mg-30 mg) 1 tablet Route: PO; ss 08:05 Follow up: Response: Medication administered at discharge. ss 08:05 Drug: Pyridium 200 mg Route: PO; ss 08:05 Follow up: Response: Medication administered at discharge. ss 08:05 Drug: Bactrim (160 mg-800 mg (DS) 1 tablet Route: PO; ss 08:05 Follow up: Response: No adverse reaction; Medication administered at discharge. ss Disposition: 02/05/21 07:47 Discharged to Home. Impression: Urinary tract infection, site not specified. - Condition is Stable. - Discharge Instructions: Urinary Tract Infection, Adult, Xgih-zy-Nmcl. - Prescriptions for Pyridium 200 mg Oral Tablet - take 1 tablet by ORAL route every 8 hours for 3 days; 9 tablet. Bactrim DS 800- 160 mg Oral Tablet - take 1 tablet by ORAL route every 12 hours for 10 days; 20 tablet. - Medication Reconciliation Form, Thank You Letter, Antibiotic Education, Prescription Opioid Use, Work release form form. - Follow up: Private Physician; When: 2 - 3 days; Reason: If symptoms return, Further diagnostic work-up, Recheck today's complaints, Continuance of care, Re-evaluation by your physician. - Problem is new. - Symptoms have improved. Signatures: Dispatcher [employer] EDMS Timur Read MD MD [facility] Deana Lopez RN RN ss Corrections: (The following items were deleted from the chart) 08:09 07:47 02/05/2021 07:47 Discharged to Home. Impression: Urinary tract infection, site ss not specified. Condition is Stable. Forms are Medication Reconciliation Form, Thank You Letter, Antibiotic Education, Prescription Opioid Use. Follow up: Private Physician; When: 2 - 3 days; Reason: If symptoms return, Further diagnostic work-up, Recheck today's complaints, Continuance of care, Re-evaluation by your physician. Problem is new. Symptoms have improved. kdr
--- NOTE | 2021-02-05 07:48 | ER ---
Nurse's Notes [facility] Name: Yanely Hernandez Age: 20 yrs Sex: Female : 2000 Arrival Date: 02/05/2021 Time: 07:21 Bed 23 Private MD: Diagnosis: Urinary tract infection, site not specified Presentation: 02/05 07:25 Chief complaint: Patient states: burning with urination, frequency and suprapubic ss pressure that began yesterday. Coronavirus screen: Client denies travel out of the [place] in the last 14 days. Ebola Screen: Patient denies exposure to infectious person. Patient denies travel to an Ebola-affected area in the 21 days before illness onset. Initial Sepsis Screen: Does the patient meet any 2 criteria? No. Patient's initial sepsis screen is negative. Does the patient have a suspected source of infection? No. Patient's initial sepsis screen is negative. Risk Assessment: Do you want to hurt yourself or someone else? Patient reports no desire to harm self or others. Onset of symptoms was February 04, 2021. 07:25 Method Of Arrival: Ambulatory ss 07:25 Acuity: TAYLER 4 ss Historical: - Allergies: 07:48 No Known Allergies; ss - Home Meds: 07:48 None [Active]; ss - PMHx: 07:48 None; ss - PSHx: 07:48 None; ss - Immunization history:: Adult Immunizations up to date. - Social history:: Smoking status: Patient denies any tobacco usage or history of. Screenin:25 Abuse screen: Denies threats or abuse. Denies injuries from another. Nutritional ss screening: No deficits noted. Tuberculosis screening: Never had TB. Fall Risk None identified. Assessment: 07:25 General: Appears uncomfortable, Behavior is calm, cooperative, Denies fever, feeling ss ill, fatigue, chills. Pain: Complains of pain in suprapubic area Pain currently is 8 out of 10 on a pain scale. Quality of pain is described as pressure, Pain began 1 day ago. Is continuous. Neuro: Level of Consciousness is awake, alert, obeys commands, Oriented to person, place, time, situation, Speech is normal. Cardiovascular: Capillary refill < 3 seconds is brisk in bilateral fingers. Respiratory: Airway is patent Respiratory effort is even, unlabored, Respiratory pattern is regular, symmetrical. GI: Abdomen is flat, non-distended, Patient currently denies diarrhea, nausea, vomiting. : Reports burning with urination, pain in suprapubic area since yesterday urinary frequency. EENT: Oral mucosa is moist. Derm: Skin is pink, warm \T\ dry. Musculoskeletal: Circulation, motion, and sensation intact. Range of motion: intact in all extremities, Swelling absent. Vital Signs: 07:25 BP 133 / 79; Pulse 79; Resp 14; Temp 97.8(TE); Pulse Ox 99% on R/A; Weight 79.38 kg; ss Height 5 ft. 3 in. (160.02 cm); Pain 8/10; 07:25 Body Mass Index 31.00 (79.38 kg, 160.02 cm) ED Course: 07:21 Patient arrived in ED. ds1 07:25 Patient has correct armband on for positive identification. Bed in low position. Call ss light in reach. 07:28 Timur Read MD is Attending Physician. kdr 07:46 Deana Lopez RN is Primary Nurse. ss 07:46 Urine --Ancillary Sent. eb 07:46 Urine Dipstick-Ancillary Sent. eb 07:46 Urine --Ancillary (enter results) Sent. eb 07:46 Urine Dipstick--Ancillary (enter results) Sent. eb 07:47 Triage completed. ss 07:48 Arm band placed on right wrist. ss 08:06 No provider procedures requiring assistance completed. Patient did not have IV access ss during this emergency room visit. Administered Medications: 08:04 Drug: Tylenol #3 (300 mg-30 mg) 1 tablet Route: PO; ss 08:05 Follow up: Response: Medication administered at discharge. ss 08:05 Drug: Pyridium 200 mg Route: PO; ss 08:05 Follow up: Response: Medication administered at discharge. ss 08:05 Drug: Bactrim (160 mg-800 mg (DS) 1 tablet Route: PO; ss 08:05 Follow up: Response: No adverse reaction; Medication administered at discharge. ss Outcome: 07:47 Discharge ordered by . kdr 08:06 Discharged to home ambulatory. ss 08:06 Condition: good 08:06 Discharge instructions given to patient, Instructed on discharge instructions, follow up and referral plans. medication usage, Demonstrated understanding of instructions, follow-up care, medications, Prescriptions given X 2. 08:09 Patient left the ED. Signatures: Timur Read MD MD [facility] Madiha Nair1 Deana Lopez RN RN ss Ayde Chatterjee
[2021-02-05] MEDS ORDERED: PHENAZOPYRIDINE 100MG TAB PO ONE (08:17)
[2021-02-05] MEDS ORDERED: CODEINE 30MG/APAP 300MG TAB ONE (08:17)
[2021-02-05] MEDS ORDERED: SMZ./TMP. 800/160 MG TABLET ONE (08:17)
[2021-02-05 08:19] LABS: Urine Blood 1+ (Negative); Urine Glucose NEGATIVE (Negative); Urine Protein 1+ (NEG)
[2021-02-05 08:23] VITALS: BP 133/79; TEMP 97.8; O2SAT 99
== END 2021-02-05 08:09 | disposition home or self-care (01) ==
LOC: ER 07:19
DX: N39.0 Urinary tract infection, site not specified (principal)
CPT/HCPCS: 81003; 81025; 87077; 87086; 87088; 87186; 99283

== ENCOUNTER 2021-03-18 20:12 | Emergency (ER) | payer OTHER ==
--- OUTSIDE RECORDS SUMMARY | 2021-03-18 20:19 | XMS REPORT | Continuity of Care Document ---
:2000 Author Organization [facility] t Address [address] [place] [address] Care Team Providers Name Role Phone Gm Melvin III Attending Clinician Christofer Hogan Attending Clinician Mala Ji Attending Clinician Erma Arredondo Attending Clinician Pee Esparza Attending Clinician Sunyn Lott Attending Clinician Placido Jasmine Jr Attending [...] IN 00:00: Abdulaziz EAR 00 Active 04/11/2020 [facility] ABD Diagnosis Active 2018-112019-08-19 Mem oria PAIN,VAGIN 0-07 18:43:00 l AL BLEED ABD 00:00: Welch PAIN,VAGIN 00 AL BLEED Active 08/19/2019 [facility] NVD Diagnosis Active 2018-05-11 Mem oria 6-20 15:48:00 l NVD 00:00: Abdulaziz 00 Active 05/02/2018 [facility] VAG BLEED Diagnosis Active 2017-12-15 Memoria 1- 11:14:00 l VAG 00:00: Welch BLEED 00 Active 12/13/2017 [facility] VAG Diagnosis Active 2017-12-15 Mem oria BLEEDING/P 1-16 11:14:00 l REGNANT VAG 00:00: Abdulaziz BLEEDING/P 00 REGNANT Active 11/28/2017 [facility] CP Diagnosis Active 2016-112017-12-15 Mem oria 12-09 11:13:00 l CP 00:00: Welch 00 Active 10/09/2017 [facility] LOWER PAIN Diagnosis Active 2015-112016-10-24 Memoria BACK, - 15:47:00 l HEADACHE, LOWER 00:00: Parish n PAIN PAIN BACK, 00 URINATIN HEADACHE, PAIN URINATIN Active 10/24/2016 [facility] VOMITTING Diagnosis Active 2016-03-11 Memoria 03-10 01:45:00 l 21:00: Welch VOMITTING 00 Active 03/10/2016 [facility] Less than Problem 2018-03-21 Me moria 8 weeks 17:01:50 l gestation Less Abdulaziz of than 8 weeks gestation of 03/21/2018 [facility] Unspecifie Problem 2018-03-06 M emoria d 19:04:36 l infection Abdulaziz of urinary Unspecifie tract in d , infection first of urinary trimester tract in , first trimester 03/06/2018 [facility] VAGINAL Diagnosis Active 2018-04-05 Me moria BLEEDING 12:34:00 l VAGINAL Welch BLEEDING Active [facility] Diagnosis Active 2018-05-11 Memoria RELATED 15:48:00 l CONDITIONS Parish n , UNSP, UNSP RELATED CONDITIONS , UNSP, UNSP Active [facility] Patient Problem Resolve 2020-04-13 2020-04-13 Memoria currently d -24 21:43:07 21:43:07 l Patient 00:00: Princess nn (finding) currently 00 (finding) Resolved 04/05/2018 Problem 04/13/2020 [facility] History of Past Illness Condition Condition Condition Status Onset Resolution Last Treating Co mments Source Name Details Category Date Date Treatment Clinician Date Unspecifie Problem 2020-04-13 2020-04-13 Memoria d otitis 30 21:43:07 21:43:07 l externa, 17:00: Abdulaziz unspecifie Unspecifie 00 d ear d otitis externa, unspecifie d ear 04/11/2020 04/13/2020 [facility] Urinary Problem 2018-05-05 2018-05-05 Memoria tract 05-02 04:24:57 04:24:57 l infection, Urinary 05:00: Her lopes site not tract 00 specified infection, site not specified 05/02/2018 05/05/2018 [facility] Nausea Problem 2018-05-05 2018-05-05 M emoria with 05-02 04:24:57 04:24:57 l vomiting, Nausea 05:00: Princess nn unspecifie with 00 d vomiting, unspecifie d 05/02/2018 05/05/2018 [facility] Threatened Problem 2018-03-21 2018-03-21 Memoria 12-13 17:01:50 17:01:50 l 06:00: Abdulaziz Threatened 00 8 03/21/2018 [facility] Other Problem 2018-03-06 2018-03-06 M emoria [...] Diagnosis: 2-12 03:44:14 03:44:14 l Headache 06:00: Abdulaziz Discharge 00 Diagnosis: Headache 6 10/27/2016 [facility] Discharge Problem 2016-03-14 2016-03-14 Memoria Diagnosis: 4-29 02:47:30 02:47:30 l Acute 05:00: Welch gastritis Discharge 00 Diagnosis: Acute gastritis 03/11/2016 03/14/2016 [facility] Discharge Problem 2016-03-14 2016-03-14 Memoria Diagnosis: 4-29 02:47:30 02:47:30 l Nausea & 05:00: Welch vomiting Discharge 00 Diagnosis: Nausea & vomiting 6 03/14/2016 [facility] Discharge Problem 2016-03-14 2016-03-14 Memoria Diagnosis: 4- 02:47:30 02:47:30 l Dehydratio 05:00: Parish n n Discharge 00 Diagnosis: Dehydratio n 03/11/2016 03/14/2016 [facility] Discharge Problem 2016-03-14 2016-03-14 Memoria Diagnosis: 4- 02:47:30 02:47:30 l Dyspepsia 05:00: Abdulaziz Discharge 00 Diagnosis: Dyspepsia 03/11/2016 03/14/2016 [facility] Discharge Problem 2016-03-14 2016-03-14 Memoria Diagnosis: 4- 02:47:30 02:47:30 l Epigastric 05:00: Parish n pain Discharge 00 Diagnosis: Epigastric pain 03/11/2016 03/14/2016 [facility] Allergies, Adverse Reactions, Alerts Allergy Allergy Status Severity Reaction(s) Onset Inactive Treating Comm ents Source Name Type Date Date Clinician valentina SEARS Active [facility]05 [place] 00:00: [facility] 00 l [facility] No Known DA Active [facility] 2018-11 [facility] No Known No Known Active Memori a Medicati Medicati l on on Welch Allergie Allergie s s Social History Social Habit Start Date Stop Date Quantity Comments Source Social History 2018-05-03 2018-05-03 [facility] 00:41:40 00:41:40 Medications Ordered Filled Start Stop Current Ordering Indication Dosage Frequency Signature Comments Components Source Medication Medication Date Date Medication? Clinician (SIG) Name Name ibuprofen Yes 600 mg = 1 Me moria 600 mg oral 5-30 tab, PO, l tablet 20:15: Q6H, PRN Welch Pain or Fever, Take with food, X 10 day, # 30 tab, 0 Refill(s) Hydrocortis Yes 4 drp, Erik andi one 10 5-30 Each l MG/ML / 20:14: Affected Parish n Neomycin 00 Ear, QID, 3.5 MG/ML / X 10 day, Polymyxin B # 10 mL, 0 [id number] Refill(s) UNT/ML Otic Suspension Saline 2018-11 No [...] Oral 23:22: BID, X 7 Abdulaziz Capsule day, # 14 [Macrobid] cap, 0 Refill(s) Tylenol No 650 mg, Memoria 6-20 Route: PO, l 23:18: Drug form: Abdulaziz 00 TAB, ONCE, Dosing Weight 88, kg, [...] 6-20 not give l 19:38: IV push. Welch 00 (Same as: Phenergan) Ondansetron No Notes: Erik andi 6-20 (Same as: l 17:12: Zofran Abdulaziz 00 ODT) Saline No Notes: Memoria Flush 0.9% 6-20 (Same as: l 17:12: BD Welch Posiflush) Sodium 2017- No 1,000 mL, Memori a Chloride 6-20 1000 l 0.9% 17:12: ml/hr, Welch (Bolus) IV 00 Infuse Over: 1 hr, Route: IV, 1,000, Drug form: INJ, ONCE, Priority: STAT, Dosing Weight 88 kg, Start date: 05/02/18 12:12:00 CDT, Stop date: 05/02/18 12:12:00 CDT tetanus/dip No Notes: Erik andi hth/pertuss 6-20 (Tdap ) l (Tdap) 05:00: For Welch adult/adol 00 Adolecent and Adult use For IM Use. Same as: Adacel (Tdap) Nitrofurant Yes 100 mg = 1 Memoria oin 100 MG 5-24 cap, PO, l Oral 18:42: BID, # 20 Abdulaziz Capsule 00 cap, 0 [Macrobid] Refill(s), Pharmacy: [facility] Metronidazo Yes 500 mg = 1 Memoria le 500 MG 5-24 tab, PO, l Oral Tablet 18:42: BID, # 20 H ermann 00 tab, 0 Refill(s), Pharmacy: [facility] Saline No Notes: Memoria Flush 0.9% 12-13 (Same as: l 21:21: BD Welch 00 Posiflush) Nitrofurant No 100 mg = 1 Memoria oin 100 MG 1-16 cap, PO, l Oral 23:07: BID, X 7 Abdulaziz Capsule 00 day, # 14 [Macrobid] cap, 0 Refill(s) NS (Bolus) No 1,000 mL, Me moria IV 1-16 1,000 l 21:54: ml/hr, Infuse Over: 1 hr, Route: IV, ONCE, Priority: STAT, Dosing Weight 87.909 kg, Start date: 11/28/17 15:54:00 HEAD TURNING MACHINE OPERATOR, Stop date: 11/28/17 15:54:00 HEAD TURNING MACHINE OPERATOR PNV Yes 1 tab, PO, Memoria 1-16 Daily, 0 l Plus 21:51: Refill(s) Tylenol No Notes: Do Memor ia 1-16 not exceed l 21:48: 4 gm/day. Abdulaziz (Same as: Tylenol) Ketorolac 2016-11 No 10 [...] kg, Priority: STAT, Start date: 10/10/17 6:27:00 HEAD TURNING MACHINE OPERATOR, Stop date: 10/10/17 6:27:00 HEAD TURNING MACHINE OPERATOR Saline 2016-11 No Notes: Memoria Flush 0.9% 12-10 (Same as: l 09:26: BD Abdulaziz 00 Posiflush) Acetaminoph 2015-11 Yes 1 cap, PO, Memoria en 300 MG / 2-12 Q4H, PRN l butalbital 18:41: PRN Abdulaziz 50 MG / 00 Headache, Caffeine 40 Do not MG Oral exceed 6 Capsule capsules [Fioricet] in 24 hours, X 10 day, # 20 cap, 0 Refill(s) Benadryl 2015-11 No Notes: Memoria 2-12 (Same as: l 16:04: Benadryl) Welch 00 Reglan 2015-11 No Notes: Memoria 2-12 (Same as: l 16:04: Reglan) Welch Sodium 2015-11 No 1,000 mL, Memori a Chloride 12 1,000 l 0.154 16:04: ml/hr, Welch MEQ/ML 00 Infuse Injectable Over: 1 Solution hr, Route: IV, 1,000, Drug form: INJ, ONCE, Priority: STAT, Dosing Weight 80.966 kg, Start date: 10/24/16 10:04:00 HEAD TURNING MACHINE OPERATOR, Duration: 1 doses or times, Stop date: 10/24/16 10:04:00 HEAD TURNING MACHINE OPERATOR Ketorolac 2015-11 No 4 days Memor ia -12 l 16:03: MEDICATION Abdulaziz 00 WASTE Product Size: 30 mg Product Wasted: ___ mg Tylenol 2015-11 No 650 mg, Memoria -12 Route: PO, l 15:23: Drug form: Abdulaziz TAB, ONCE, Dosing Weight 80.966, kg, Priority: STAT, Start date: 10/24/16 9:23:00 HEAD TURNING MACHINE OPERATOR, Stop date: 10/24/16 9:23:00 HEAD TURNING MACHINE OPERATOR Acetaminoph 2015- No 1 - 2 tab, [...] n [Zantac] 00 tab, 0 Refill(s) Sodium No 1,000 mL, Memori a Chloride 03-11 1,000 l 0.154 07:42: ml/hr, Abdulaziz MEQ/ML 00 Infuse Injectable Over: 1 Solution hr, Route: IV, ONCE, Priority: STAT, Dosing Weight 72.955 kg, Start date: 03/11/16 2:42:00 CDT, Duration: 1 doses or times, Stop date: 03/11/16 2:42:00 CDT Morphine 2015- No 4 mg, Memoria 03-11 Route: l 06:05: IVP, Drug Welch form: INJ, ONCE, Dosing Weight 72.955, kg, Priority: STAT, Start date: 03/11/16 1:05:00 CDT, Stop date: 03/11/16 1:05:00 CDT Reglan 2015-0 No 10 mg, Memoria 03-11 Route: l 06:05: IVP, Drug Welch form: INJ, ONCE, Dosing Weight 72.955, kg, Priority: STAT, Start date: 03/11/16 1:05:00 CDT, Stop date: 03/11/16 1:05:00 CDT GI cocktail 2015-0 No 30 mL, Erik andi 03-11 Route: PO, l 06:05: Dosing Abdulaziz 00 Weight 72.955, kg, ONCE, STAT, Start date: 03/11/16 1:05:00 CDT, Stop date: 03/11/16 1:05:00 CDT Ondansetron No 4 mg, Memor ia 03-11 Route: PO, l 03:37: Drug form: Abdulaziz 00 TABDIS, ONCE, Dosing Weight 65, kg, Priority: STAT, Start date: 03/10/16 22:37:00 CDT, Stop date: 03/10/16 22:37:00 CDT Saline No Notes: Memoria Flush 0.9% 03-11 (Same as: l 03:37: BD Abdulaziz Posiflush) Vital Signs Vital Name Observation Time Observation Value Comments Source Height 2020-04-11 20:07:00 [facility] Calculated 2020-04-11 20:07:00 Memori al Welch Weight 2020-04-11 20:07:00 [facility] Welch Systolic (mm Hg) 2020-04-11 20:07:00 Erik rial Welch Diastolic (mm Hg) 2020-04-11 20:07:00 Mem orial Welch Heart Rate 2020-04-11 20:07:00 [facility] Abdulaziz Respitory Rate 2020-04-11 20:07:00 Memori al Abdulaziz Temperature Oral (F) 2020-04-11 20:07:00 98 F [facility] Welch Systolic (mm Hg) 2019-08-19 13:16:00 Erik rial Welch Diastolic (mm Hg) 2019-08-19 13:16:00 Mem orial Welch Heart Rate 2019-08-19 13:16:00 [facility] Welch Respitory Rate 2019-08-19 13:16:00 Memori al Welch Temperature Oral (F) 2019-08-19 13:16:00 98.4 F [facility] Abdulaziz Height 2019-08-19 13:16:00 157.48 cm [facility] Welch BMI Calculated 2019-08-19 13:16:00 Memori al Welch Weight 2019-08-19 13:16:00 [facility] Abdulaziz Systolic (mm Hg) 2018-05-03 00:30:00 Erik rial Welch Diastolic (mm Hg) 2018-05-03 00:30:00 Mem orial Abdulaziz Heart Rate 2018-05-03 00:30:00 [facility] Welch Respitory Rate 2018-05-03 00:30:00 Memori al Abdulaziz Temperature Oral (F) 2018-05-03 00:30:00 97.2 F [facility] Abdulaziz Weight 2018-05-03 00:05:00 [facility] Abdulaziz Height 2018-05-03 00:05:00 157.48 cm [facility] Abdulaziz BMI Calculated 2018-05-03 00:05:00 Memori al Abdulaziz Systolic (mm Hg) 2018-05-02 23:23:00 Erik rial Abdulaziz Diastolic (mm Hg) 2018-05-02 23:23:00 Mem orial Welch Respitory Rate 2018-05-02 23:23:00 Memori al Welch Respitory Rate 2018-05-02 22:30:00 Memori al Welch Systolic (mm Hg) 2018-05-02 22:30:00 Erik rial Welch Diastolic (mm Hg) 2018-05-02 22:30:00 Mem orial Abdulaziz Temperature Oral (F) 2018-05-02 17:09:00 98.2 F [facility] Abdulaziz Heart Rate 2018-05-02 17:09:00 [facility] Welch Height 2018-05-02 17:09:00 165.1 cm [facility] Abdulaziz BMI Calculated 2018-05-02 17:09:00 Memori al Abdulaziz Weight 2018-05-02 17:09:00 [facility] Abdulaziz Systolic (mm Hg) 2018-04-05 16:55:00 Erik rial Abdulaziz Diastolic (mm Hg) 2018-04-05 16:55:00 Mem orial Abdulaziz Height 2018-04-05 16:38:00 157.48 cm [facility] Abdulaziz Weight 2018-04-05 16:38:00 [facility] Welch BMI Calculated 2018-04-05 16:38:00 Memori al Welch Systolic (mm Hg) 2017-12-13 23:47:00 Erik rial Abdulaziz Diastolic (mm Hg) 2017-12-13 23:47:00 Mem orial Welch Respitory Rate 2017-12-13 23:47:00 Memori al Welch Respitory Rate 2017-12-13 22:51:00 Memori al Welch Heart Rate 2017-12-13 22:51:00 [facility] Welch Systolic (mm Hg) 2017-12-13 22:51:00 Erik rial Abdulaziz Diastolic (mm Hg) 2017-12-13 22:51:00 Mem orial Abdulaziz Weight 2017-12-13 21:17:00 [facility] Welch Temperature Oral (F) 2017-12-13 21:17:00 99.3 F [facility] Welch BMI Calculated 2017-12-13 21:17:00 Memori al Abdulaziz Height 2017-12-13 21:17:00 157.48 cm [facility] Welch Systolic (mm Hg) 2017-12-13 21:17:00 Erik rial Welch Diastolic (mm Hg) 2017-12-13 21:17:00 Mem orial Welch Heart Rate 2017-12-13 21:17:00 [facility] Abdulaziz Respitory Rate 2017-12-13 21:17:00 Memori al Welch Heart Rate 2017-11-28 23:48:00 [facility] Welch Respitory Rate 2017-11-28 23:48:00 Memori al Abdulaziz Systolic (mm Hg) 2017-11-28 23:48:00 Eirk rial Abdulaziz Diastolic (mm Hg) 2017-11-28 23:48:00 Mem orial Welch Systolic (mm Hg) 2017-11-28 22:30:00 Erik rial Welch Diastolic (mm Hg) 2017-11-28 22:30:00 Mem orial Welch Respitory Rate 2017-11-28 22:30:00 Memori al Abdulaziz Heart Rate 2017-11-28 22:30:00 [facility] Abdulaziz Systolic (mm Hg) 2017-11-28 21:30:00 Erik rial Welch Diastolic (mm Hg) 2017-11-28 21:30:00 Mem orial Welch Heart Rate 2017-11-28 21:30:00 [facility] Abdulaziz Respitory Rate 2017-11-28 21:30:00 Memori al Welch Weight 2017-11-28 20:40:00 [facility] Abdulaziz BMI Calculated 2017-11-28 20:40:00 Memori al Abdulaziz Temperature Oral (F) 2017-11-28 20:40:00 98.4 F [facility] Welch Height 2017-11-28 20:40:00 157.48 cm [facility] Abdulaziz Heart Rate 2017-10-10 14:07:00 [facility] Abdulaziz Respitory Rate 2017-10-10 14:07:00 Memori al Abdulaziz Systolic (mm Hg) 2017-10-10 14:07:00 Erik rial Abdulaziz Diastolic (mm Hg) 2017-10-10 14:07:00 Mem orial Abdulaziz Weight 2017-10-10 07:14:00 [facility] Welch BMI Calculated 2017-10-10 07:14:00 Memori al Welch Temperature Oral (F) 2017-10-10 07:14:00 99 F [facility] Abdulaziz Respitory Rate 2017-10-10 07:14:00 Memori al Welch Height 2017-10-10 07:14:00 154.94 cm [facility] Welch Heart Rate 2017-10-10 07:14:00 [facility] Abdulaziz Systolic (mm Hg) 2017-10-10 07:14:00 Erik rial Welch Diastolic (mm Hg) 2017-10-10 07:14:00 Mem orial Abdulaziz Systolic (mm Hg) 2016-10-24 18:47:00 Erik rial Welch Diastolic (mm Hg) 2016-10-24 18:47:00 Mem orial Welch Respitory Rate 2016-10-24 18:47:00 Memori al Abdulaziz Heart Rate 2016-10-24 18:47:00 [facility] Abdulaziz Temperature Oral (F) 2016-10-24 18:47:00 97.3 F [facility] Abdulaziz Systolic (mm Hg) 2016-10-24 17:04:00 Erik rial Welch Diastolic (mm Hg) 2016-10-24 17:04:00 Mem orial Welch Respitory Rate 2016-10-24 17:04:00 Memori al Welch Heart Rate 2016-10-24 17:04:00 [facility] Abdulaziz Respitory Rate 2016-10-24 15:22:00 Memori al Abdulaziz Systolic (mm Hg) 2016-10-24 15:22:00 Erik rial Abdulaziz Diastolic (mm Hg) 2016-10-24 15:22:00 Mem orial Welch Heart Rate 2016-10-24 15:22:00 [facility] Abdulaziz BMI Calculated 2016-10-24 14:59:00 Memori al Abdulaziz Weight 2016-10-24 14:59:00 [facility] Welch Height 2016-10-24 14:59:00 157.48 cm [facility] Abdulaziz Temperature Oral (F) 2016-10-24 14:59:00 98.4 F [facility] Welch Heart Rate 2016-03-11 09:33:00 [facility] Abdulaziz Temperature Oral (F) 2016-03-11 09:33:00 97.8 F [facility] Abdulaziz Respitory Rate 2016-03-11 09:33:00 Memori al Welch Systolic (mm Hg) 2016-03-11 09:33:00 Erik rial Abdulaziz Diastolic (mm Hg) 2016-03-11 09:33:00 Mem orial Abdulaziz Systolic (mm Hg) 2016-03-11 08:51:00 Erik rial Abdulaziz Diastolic (mm Hg) 2016-03-11 08:51:00 Mem orial Welch Respitory Rate 2016-03-11 08:51:00 Memori al Abdulaziz Heart Rate 2016-03-11 08:51:00 [facility] Abdulaziz Temperature Oral (F) 2016-03-11 08:51:00 96.8 F [facility] Abdulaziz Respitory Rate 2016-03-11 06:18:00 Memori al Welch Systolic (mm Hg) 2016-03-11 06:18:00 Erik rial Welch Diastolic (mm Hg) 2016-03-11 06:18:00 Mem orial Abdulaziz Heart Rate 2016-03-11 06:18:00 [facility] Abdulaziz Weight 2016-03-11 03:36:00 [facility] Welch BMI Calculated 2016-03-11 03:36:00 Memori al Welch Temperature Oral (F) 2016-03-11 03:36:00 98.1 F [facility] Welch Height 2016-03-11 03:36:00 157.48 cm [facility] Welch Procedures This patient has no known procedures. Encounters Start End Encounter Admission Attending Care Care Encounter Source Date/Time Date/Time Type Type Clinicians Facility Department ID 2020-04-11 2020-04-11 Outpatient Ngozi [facility] [id number] 15:05:35 15:21:00 Justo Worrell 2020-04-11 2020-04-11 Emergency E MHNE CRISSY [id number] [facility]ISSY 15:05:00 15:05:00 2019-08-19 2019-08-19 Outpatient Edison [facility] [id number] 08:14:07 09:20:00 Agusto Beaulieu 2018-05-02 2018-05-02 Outpatient Garrison [facility] [id number] 12:06:00 23:09:00 Ricardo Lemus 2018-04-05 2018-04-05 Outpatient Arnulfo, [facility] [id number] 11:38:00 13:45:00 Doug Ritchie 2017-12-13 2017-12-13 Outpatient Vilma, [facility] [id number] 14:42:00 17:48:00 Roldan Glasgow 2017-11-28 2017-11-28 Outpatient Juan Carlos Lott [facility] [id number] 14:32:00 17:54:00 Sunny 05 2017-10-10 2017-10-10 Outpatient Kenroy, [facility] [id number] 01:10:00 08:20:00 Isiah 04 2016-10-24 2016-10-24 Outpatient Vazquez, [facility] [id number] 08:47:00 13:06:00 Christopher [facility] 2016-03-10 2016-03-11 Outpatient Bautista, [facility] [id number] 22:23:00 04:34:00 Alessandra Machuca 02 Results Test Description Test Time Test Comments [...] IU/L is considered POSI TIVE ISTAT [id number] 17:00:00 Test Item Value Reference Range Interpretation [...] 15.3 G/DL 12.0-18.0 Notifi ed Nurse/[facility] of [facility]) results outside of Reference Range s ISTANGAP (test code = 17 MMOL/L Notifi ed Nurse/MD of [facility]) results outside of Reference Range s [id number] 16:49:00 Test Item Value Reference Range Interpretation [...] (test code = TRACE NONE BACTERIA) B-HCG, [id number] 10:40:00 Test Item Value Reference Range Interpretation Comments HCG (test code = 830775 MIU/ML A value of less than or HCG) equal to </= 4. 83 mIU/ml is considered N EGATIVE. A value between 4.84 mIU/ml and 24.9 9 mIU/ml is considered INDETERMINATE a nd should be repeated in 48 hours if necessary. A value of 25.0 mIU/ml or greater is considered P OSITIVE. Updated: 03/20/20 [id number] 10:19:00 Test Item Value Reference Range Interpretation Comments BLOOD TYPE (test O Rh Positive Comment for code = TYPE) Female s Rhogam may be indicated for p atient depending baby' s Rh status. OB <14 [id number] 10:00:00 [facility] [place] : 2000 Sex: F[address] [id number] IMAGING REPORTPatient Name: ASHLEY HAYNES RDate of Service: [id number]: 20 Sex: F Order #: [id number] Room: ERSDOB: 2000 X-Ray Number: [id number] Record Number: [id number] Hospital Number: [id number] Physician: BRANDON LARSEN -Ordering Physician: MIRIAM MATTA [...] 9:58 AMLegally authenticated by JASON HARDIN 2020-11-27 09:58:[id number] 09:52:00 Test Item Value Reference Range Interpretation [...] glucose = GLUCOSE) normal <100 MG/ DL- [employer] [place] recommendation* * CALCIUM (test [...] of age is not validated by e cane flume feeding machine operator an d may not represent t he patients true r enal function. [id number] 09:30:00 Test Item Value Reference Range Interpretation [...] code 7.4 K/UL 1.2-7.2 H = NEUT) [id number] 08:33:00 Test Item Value Reference Range Interpretation [...] = SCAN NONE BACTERIA) US OB <14 [id number] 07:25:00 [facility] : 2000 Sex: F[address] [id number] IMAGING REPORTPatient Name: ASHLEY HAYNES RDate of Service: [id number]: 20 Sex: F Order #: [id number] Room: [facility]: 2000 X-Ray Number: [id number] Record Number: [id number] Hospital Number: [id number] Physician: LI MULTANIOrdering Physician: AVILA RILEY OB [...] at 9 weeks 2 days gestation by [facility]. Estimated delivery date is 06/19/2021. Follow-up recommended later insecond trimester to document normal anatomy.Subchorionic hemorrhage.Electronically Signed By: Dread Carcamo M.D., 11/16/2020 7:23 AMLegally authenticated by BARBIE PAYTON 2020-11-16 07:23:05B-HCG, [id number] 05:18:00 Test Item Value Reference Range Interpretation Comments HCG (test code = 976601 MIU/ML A value of less than or HCG) equal to </= 4. 83 mIU/ml is considered N EGATIVE. A value between 4.84 mIU/ml and 24.9 9 mIU/ml is considered INDETERMINATE a nd should be repeated in 48 hours if necessary. A value of 25.0 mIU/ml or greater is considered P OSITIVE. Updated: 03/20/20 10 [id number] 03:56:00 Test Item Value Reference Range Interpretation [...] glucose = GLUCOSE) normal <100 MG/ DL- [employer] [place] recommendation* * CALCIUM (test [...] of age is not validated by e cane flume feeding machine operator an d may not represent t he patients true r enal function. [id number] 03:44:00 Test Item Value Reference Range Interpretation Comments BLOOD TYPE (test O Rh Positive Comment for code = TYPE) Female s Rhogam may be indicated for patient dependi ng baby's Rh statu s. ANTIBODY SCREEN NEGATIVE NEGATIVE (test code = SCREEN) [id number] 03:21:00 Test Item Value Reference Range Interpretation [...] (test code 6.3 K/UL 1.2-7.2 = NEUT) [id number] 03:20:00 Test Item Value Reference Range Interpretation [...] (test code = NEGATIVE NONE BACTERIA) ISTAT [id number] 02:56:00 Test Item Value Reference Range Interpretation Comments ISTAT HCG (test >2000.0 IU/L H A value of l ess than or code = ISHCG) equal to <5 IU /L is considered NEGA TIVE A value between 5 IU/L and 25 IU/L is cons idered INDETERMINATE A value of >25 IU/L is con sidered POSITIVE REFLEX CULTURE, [id number] 11:21:00 Test Item Value Reference Range Interpretation [...] code = Report Text12) US OB <14 [id number] 06:54:00 [facility] : 2000 [facility] [place], [place] [id number] IMAGING REPORTPatient Name: ASHLEY HAYNES RDate of Service: [id number]: 20 Sex: F Order #: [id number] [facility] 2000 [facility] Number: [id number] Record Number: [id number] Hospital Number: [id number] Physician: Eonch LOYD Physician: SANDI LOYD OBULTRASOUND 11/11/2020HISTORY: Pelvic [...] at 8 weeks 6 days [facility] Estimated delivery date is 06/17/2021. Follow-up recommended later insecond trimester to document normal anatomy.Subchorionic hemorrhage.No other acute findings.Electronically Signed By: Dread Carcamo M.D., 11/11/2020 6:51 AMLarron authenticatedby BARBIE PAYTON 2020-11-11 06:51:[id number] 06:49:00 Test Item Value Reference Range Interpretation [...] (test code = NEGATIVE NONE BACTERIA) ISTAT [id number] 05:37:00 Test Item Value Reference Range Interpretation Comments ISTAT HCG (test >2000.0 IU/L H A value of l ess than or code = ISHCG) equal to <5 IU /L is considered NEGA TIVE A value between 5 IU/L and 25 IU/L is cons idered INDETERMINATE A value of >25 IU/L is con sidered POSITIVE [id number] 05:14:00 Test Item Value Reference Range Interpretation [...] (test code 6.1 K/UL 1.2-7.2 = NEUT) [id number] 05:08:00 Test Item Value Reference Range Interpretation [...] glucose = GLUCOSE) normal <100 MG/ DL- [employer] [place] recommendation* * CALCIUM (test [...] of age is not validated by e cane flume feeding machine operator an d may not represent t he patients true r enal function. [id number] 04:54:00 Test Item Value Reference Range Interpretation Comments BLOOD TYPE (test O Rh Positive Comment for code = TYPE) Female s Rhogam may be indicated for p atient depending baby' s Rh status. APTIMA GONORRHEA/[id number] 18:08:00 Test Item Value Reference Range Interpretation Comments CHLAMYDIA TRACHOMATIS, Negative Negative SYED (test code = GENPROCH) NEISSERIA GONORRHOEAE, Negative Negative Perfo rmed at: ST - SYED (test code = [facility] GENPROGC) [address] [place], [place] [id number] Lab D irector: Natasha Maddox, Phone: [phone] REFLEX CULTURE, [id number] 08:04:00 Test Item Value Reference Range Interpretation Comments RFUACULT (test code = RFUACULT) RFUACULT (test code = [id number]) PDG 2020-07-31 1157 >100,000 CFU/ML PDG 2020-07-31 1158 OXIDASE NEGATIVE GRAM NEGATIVE BACILLI ISOLATED PRELIMINARY REPORT PDG 2020-07-31 1159 ID AND/OR SENSITIVITY TO FOLLOW PRELIMINARY REPORT WET M[place]/[id number] 13:19:00 Test Item Value Reference Range Interpretation Comments Report Text (test code = PDG 2020-07-30 1319 Report Text) Report Text7 (test code = NO TRICHOMONAS SEEN Report Text7) Report Text8 (test code = NO YEAST SEEN Report Text8) Report Text9 (test code = PDG 2020-07-30 1320 Report Text9) Report Text10 (test code NO CLUE CELLS SEEN = Report Text10) US PELVIS NON-OB [id number] 13:01:[address] [address]LIFMWMWESR IMAGING REPORTPatient Name: SHMUEL HAYNESADate of Service: [id number]: 20 Sex: F Order #: [id number] [facility] 2000 [facility] Number: [id number] Record Number: [id number] Hospital Number: [id number] Physician: ZANDRA TEMPLEOrdering Physician: JUSTO MATTATransabdominal pelvicultrasound [...] prelimenary and confirmation re sults will follow. ABO/[id number] 11:02:00 Test Item Value Reference Range Interpretation Comments BLOOD TYPE (test O Rh Positive Comment for code = TYPE) Female s Rhogam may be indicated for p atient depending baby' s Rh status. B-HCG, [id number] 10:52:00 Test Item Value Reference Range Interpretation [...] is cons idered POSITIVE. Updat ed: 03/20/2010 [id number] 10:48:00 Test Item Value Reference Range Interpretation [...] BACTERIA (test code = TNTC NONE BACTERIA) [id number] 10:41:00 Test Item Value Reference Range Interpretation [...] glucose = GLUCOSE) normal <100 MG/ DL- [employer] recommendation* * CALCIUM (test [...] GFR) mL/min/1.73m2 mL/min/1.73m2 is considered norm al. [id number] 10:24:00 Test Item Value Reference Range Interpretation [...] code 4.4 K/UL 1.2-7.2 = NEUT) ISTAT [id number] 10:10:00 Test Item Value Reference Range Interpretation Comments ISTAT HCG (test <5.0 IU/L A value of l ess than or code = ISHCG) equal to <5 IU /L is considered NEGA TIVE A value between 5 IU/L and 25 IU/L is cons idered INDETERMINATE A value of >25 IU/L is con sidered POSITIVE HGB [id number] 17:49:00 Test Item Value Reference Range Interpretation Comments RED BLOOD CELL (test code = RBC) 3.20 M/mm3 3.8-5.5 L HEMOGLOBIN (test code = HGB) 9.7 G/DL 10.6-15.8 L HEMATOCRIT (test code = HCT) 29.4 % 31.8-47.4 L MEAN CELL VOLUME (test code = MCV) 91.9 fL 80.1-101.1 N HGB [id number] 12:52:00 Test Item Value Reference Range Interpretation Comments RED BLOOD CELL (test code = RBC) 3.28 M/mm3 3.8-5.5 L HEMOGLOBIN (test code = HGB) 9.9 G/DL 10.6-15.8 L HEMATOCRIT (test code = HCT) 30.0 % 31.8-47.4 L MEAN CELL VOLUME (test code = MCV) 91.5 fL 80.1-101.1 N URINALYSIS [id number] 10:16:00 Test Item Value Reference Range Interpretation [...] = MANY /LPF NONE A MUCU) HGB [id number] 10:08:00 Test Item Value Reference Range Interpretation Comments RED BLOOD CELL (test code = RBC) 3.80 M/mm3 3.8-5.5 N HEMOGLOBIN (test code = HGB) 11.5 G/DL 10.6-15.8 N HEMATOCRIT (test code = HCT) 34.8 % 31.8-47.4 N MEAN CELL VOLUME (test code = MCV) 91.6 fL 80.1-101.1 N - US PREG UT [id number] 08:47:00 Patient Name: ASHLEY HAYNES Unit No: [id number] EXAMS: CPT CODE: [id number] US PREG UT TRANSVAGINAL 28813 Location: R16 Endovaginal obstetric ultrasound. History: Pain [...] CC: Anu Edwards MD Technologist: Eri Dalton [facility] Trnscrbd D/ (0847) JoleenRH16 P robe: [id number] Orig Print D/T: S: 12/26/2019 (0850) Probe: JANET Goncalves NAME: ASHLEY HAYNES [address] [place] [address] PHYS: Anu [place], [place] [address] : 2000 AGE: 19 SEX: F LOC: B.ERS PHONE #: EXAM DATE: 12/26/2019 STATUS: REG ER FAX #: [phone] RAD NO: Page 1 Signed ReportBASIC METABOLIC [id number] 08:44:00 Test Item Value Reference Range Interpretation [...] 1 NORMAL code = LIPINDEX) Index/DL HCG [id number] 08:44:00 Test Item Value Reference Range Interpretation [...] EKS 940 - 60,000 MIU/ML BASIC METABOLIC [id number] 08:28:00 Test Item Value Reference Range Interpretation [...] 1 NORMAL code = LIPINDEX) Index/DL HCG [id number] 08:28:00 Test Item Value Reference Range Interpretation Comments HCG SERUM (test code = HCG) mi-IU/ML 0-3 CBC W/O [id number] 08:09:00 Test Item Value Reference Range Interpretation [...] = 9.6 fL 6.8-11.2 N MPV) HCG [id number] 00:44:00 Test Item Value Reference Range Interpretation [...] after 48 hours toconfirm . COMPREHENSIVE METABOLIC [id number] 23:59:00 Test Item Value Reference Range Interpretation [...] U/L 38-126 N (test code = ALKP) [id number] 23:59:00 Test Item Value Reference Range Interpretation Comments LIPASE (test code = LIP) 70 U/L 23-300 N COMPREHENSIVE METABOLIC [id number] 23:57:00 Test Item Value Reference Range Interpretation [...] U/L 38-126 N (test code = ALKP) [id number] 23:57:00 Test Item Value Reference Range Interpretation Comments LIPASE (test code = LIP) U/L 23-300 URINALYSIS [id number] 23:53:00 Test Item Value Reference Range Interpretation [...] MUCU) Rare /LPF <Rare A CBC W/AUTO [id number] 23:46:00 Test Item Value Reference Range Interpretation [...] BA#) 0.03 x10 3/uL 0.0-0.1 N HCG [id number] 19:32:00 Test Item Value Reference Range Interpretation Comments HCG BLOOD (test 94633 IU/L HCG in non-p regnant code = [...] any conditionunrela ryne to . - DUP AB/PEL/SC/[id number] 18:06:00 [place]: St: PRE Name: ASHLEY HAYNES [facility] : 2000 Age/S: 19/F [address] Unit#: [id number] Loc: [place] [address] Phys: Katlyn Multani HALIE Acct: [id number] Dis Date: Status: PRE ER PHONE #: [phone] Exam Date: 12/18/2019 1748 FAX #: [phone] Reason: vag bleeding EXAMS: CPT CODE: [id number] DUP AB/PEL/SC/LTD 32138 Exam: First trimester obstetrical sonogram. Location: 12 History: vag bleeding Technique: A real- time transabdominal pelvic sonogram was performed. A transvaginal exam was performed to better evaluate the pelvic anatomy. COMPARISON: 12/16/2019 Findings: A single fetus is found with a crown- rump length of 3.37 cm, which gives an estimated gestational age of 8 weeks 4 days. No cardiac activity was seen by the medical physics researcher. The gestational reaction is unremarkable. The uterus [...] by: Inder Davis CC: Technologist: Maribel Baxter [facility] PAGE 1 Signed Report [place]: St: PRE Name: ASHLEY HAYNES [facility] : 2000 Age/S: 19/F [address] Unit #: [id number] Loc: [place] [address] Phys: Katlyn Multani [employer] Acct: [id number] Dis Date: Status: PRE ER PHONE #: [phone] Exam Date: 12/18/20191747 FAX #: [phone] Reason: vag bleeding EXAMS: CPT CODE: [id number] DUP AB/PEL/SC/LTD 37886 <Continued> Trnscrd Date/Time/By: 12/18/2019 (1806) : By: Joleen PAGE 2 Signed Report- US PREG UT [id number] 18:06:00 [place]: St: PRE Name: ASHLEY HAYNES [facility] : 2000 Age/S: 19/F [address] Unit#: [id number] Loc: [place] [address] Phys: Katlyn Multani [employer] Acct: [id number] Dis Date: Status: PRE ER PHONE #: [phone] Exam Date: 12/18/20191747 FAX #: [phone] Reason: vag bleeding EXAMS: CPT CODE: [id number] US PREG UT TRANSVAGINAL 23620 Exam: First trimester obstetrical sonogram. Locat ion: [...] No cardiac activity was seen by the medical physics researcher. The gestational reaction is unremarkable. The uterus [...] by: Inder Davis CC: Technologist: Maribel Baxter [facility]; S#: [id number] IC5-9-D TV Trnscrd Date/Time/By: 12/18/2019 (1805) : By: Joleen PAGE 1 SignedReport [place]: MCSt: PRE -- Name: ASHLEY HAYNES [place] [facility] : 2000 Age/S: 19/F [address] Unit #: [id number] Loc: [place] [address] Phys: Katlyn Multani [employer] Acct: [id number] Date: Status: PRE ER PHONE #: [phone] Exam Date: 12/18/2019 1740 FAX #: [phone] Reason: vag bleeding EXAMS: CPT CODE: [id number] US PREG UT TRANSVAGINAL 42111 <Continued> Orig Print D/T: S: 12/18/2019 (056) PAGE 2 Signed Report- US PREG 1ST [id number] 18:06:00 [place]: St: PRE Name: [facility] 2000 Age/S: 19/F [address] Unit#: [id number] Loc: [place] [address] Phys: Katlyn Multani [employer] Acct: [id number] Dis Date: Status: PRE ER PHONE #: [phone] Exam Date: 12/18/2019 1748 FAX #: [phone] Reason: vag bleeding EXAMS: CPT CODE: [id number] US PREG 1ST TRIMTR 72085 Exam: First trimester obstetrical sonogram. Location: H 12 History: vag bleeding Technique: A real-time transabdominal pelvic sonogram was performed. A transvaginal exam was performed to better evaluate the pelvic anatomy. COMPARISON: 12/16/2019 Findings: A single fetus is found with a crown-rump length of 3.37 cm, which gives an estimated gestational age of 8 weeks 4 days. No cardiac activity was seen by the medical physics researcher. The gestational reaction is unremarkable. The uterus [...] (1805) : By: Joleen PAGE 1 SignedReport [place]: MCSt: PRE -- Name: ASHLEY HAYNES [facility] [place] : 2000 Age/S: 19/F [address] Unit #: [id number] Loc: [place] [address] Phys: Katlyn Multani NP Acct: [id number] Date: Status: PRE ER PHONE #: [phone] Exam Date: 12/18/2019 1742 FAX #: [phone] Reason: vag bleeding EXAMS: CPT CODE: [id number] PREG 1ST TRIMTR 91365 <Continued> Orig Print D/T: S: 12/18/2019 (1809) PAGE 2 Signed ReportHCG [id number] 18:48:00 Test Item Value Reference Range Interpretation Comments HCG BLOOD (test 97443 IU/L HCG in non-p regnant code = [...] any conditionunrela ryne to . COMPREHENSIVE METABOLIC [id number] 17:49:00 Test Item Value Reference Range Interpretation [...] N (test code = ALKP) CBC W/AUTO [id number] 17:41:00 Test Item Value Reference Range Interpretation [...] BA#) 0.04 x10 3/uL 0.0-0.1 N URINALYSIS [id number] 17:32:00 Test Item Value Reference Range Interpretation [...] /LPF <Rare A - US PREG UT ULMDOFGAGXTO8193-97-24 17:20:00 [place]: St: REG Name: IVYLYSSAFADIABHUMIKACharla Avila [facility] : 2000 Age/S: 19/F [address] Unit#: [id number] Loc: [place] [address] Phys: Madhuri Neely [employer] Acct: [id number] Dis Date: Status: REG ER PHONE #: [phone] Exam Date: 12/16/2019 5389 FAX #: [phone] Reason: pain EXAMS: CPT CODE: [id number] US PREG UT TRANSVAGINAL 34884 Examination: Ultrasound 1st trimester, ultrasound pelvis and [...] Vito Viramontes MD CC: Technologist: Brian Temple MS; S#: [id number] IC5-9-D TV Trnscrd Date/Time/By: 020 (1720) : By: [email or web address] PAGE 1 Signed Report [place]: St: REG Name: IVYSHMUELCharla Avila [facility] : 2000 Age/S: 19/F [address] Unit #: [id number] Loc: [place] [address] Phys: Madhuri Neely NP Acct: [id number] Dis Date: Status: REG ER PHONE #: [phone] Exam Date: FAX #: [phone] Reason: pain EXAMS: CPT CODE: [id number] PREG UT TRANSVAGINAL 34168 <Continued> Orig Print D/T: S: 12/16/2019 (6119) PAGE 2 SignedReport - DUP AB/PEL/SC/[id number] 17:20:00 [place]: St: REG Name: ASHLEY HAYNES [facility] [place] : 2000 Age/S: 19/F [address] Unit#: [id number] Loc: [place] [address] Phys: Madhuri Neely [employer] Acct: [id number] Dis Date: Status: REG ER PHONE #: [phone] Exam Date: 12/16/2019 5888 FAX #: [phone] Reason: pain EXAMS: CPT CODE: [id number] DUP AB/PEL/SC/LTD 03102 Examination: Ultrasound 1st trimester, ultrasound pelvis and [...] Vito Viramontes MD CC: Technologist: Brian Temple [facility] Trnscrd Date/Time/By: 12/16/2019 (1720) : By: [email or web address] PAGE 1 Signed Report [place]: [facility]: REG Name: ASHLEY HAYNES [facility] : 2000 Age/S: 19/F [address] Unit #: [id number] Loc: [place] [address] Phys: Madhuri Neely NP Acct: [id number] Dis Date: Status: REG ER PHONE #: [phone] Exam Date: FAX #: [phone] Reason: pain EXAMS: CPT CODE: [id number] DUP AB/PEL/SC/LTD 13492 <Continued> Orig Print D/T: S: 12/16/2019 (4933) PAGE 2 SignedReport - US PREG 1ST [id number] 17:20:00 [place]: [facility]: REG Name: ASHLEY HAYNES [place] [facility] : 2000 Age/S: 19/F [address] Unit#: [id number] Loc: [place] [address] Phys: Madhuri Neely [employer] Acct: [id number] Dis Date: Status: REG ER PHONE #: [phone] Exam Date: 12/16/2019 828 FAX #: [phone] Reason: pain EXAMS: CPT CODE: [id number] US PREG 1ST TRIMTR 89548 Examination: Ultrasound 1st trimester, ultrasound pelvis and [...] Vito Viramontes MD CC: Technologist: Brian Temple [facility] Trnscrd Date/Time/By: 12/16/2019 (1720) : By: [email or web address] PAGE 1 Signed Report [place]: St: REG Name: ASHLEY HAYNES [facility] : 2000 Age/S: 19/F [address] Unit #: [id number] Loc: [place] [address] Phys: Madhuri Neely [employer] Acct: [id number] Dis Date: Status: REG ER PHONE #: [phone] Exam Date: FAX #: [phone] Reason: pain EXAMS: CPT CODE: [id number] US PREG 1ST TRIMTR 44973 <Continued> Orig Print D/T: S: 12/16/2019 (6428) PAGE 2 SignedReport - US RETRO [id number] 17:17:00 [place]: St: REG Name: ASHLEY HAYNES [facility] : 2000 Age/S: 19/F [address] Unit#: [id number] Loc: [place] [address] Phys: Madhuri Neely [employer] Acct: [id number] Dis Date: Status: REG ER PHONE #: [phone] Exam Date: 12/16/2019 7231 FAX #: [phone] Reason: right flank pain EXAMS: CPT CODE: [id number] US RETRO LTD 68569 RENAL ULTRASOUND R 16 HISTORY: Renal failure [...] Joaquin Bonds MD CC: Technologist: Brian Temple RDIA Trnscrd Date/Time/By: 12/16/2019 (1717) : By: [email or web address] PAGE 1 Signed Report [place]: St: REG Name: IVYASHLEY Avila [facility] : 2000 Age/S: 19/F [address] Unit #: [id number] Loc: [place] [address] Phys: Madhuri Neely Buzz [employer] Acct: [id number] Dis Date: Status: REG ER PHONE #: [phone] Exam Date: 12/16/2019 1659 FAX #: [phone] Reason: right flank pain EXAMS: CPT CODE: [id number] US RETROLTD 26996 <Continued> Orig Print D/T: S: 12/16/2019 (4332) PAGE 2 Signed ReportHCG [id number] 22:07:00 Test Item Value Reference Range Interpretation [...] any conditionunrela ryne to . CBC W/AUTO [id number] 21:49:00 Test Item Value Reference Range Interpretation [...] 0.02 x10 3/uL 0.0-0.1 N BASIC METABOLIC [id number] 21:49:00 Test Item Value Reference Range Interpretation [...] 9.2 mg/dL 8.4-10.2 N CA) - DUP AB/PEL/SC/TFB7056-11-72 21:15:00 [place]: St: REG Name: ASHLEY HAYENS [facility] : 2000 Age/S: 19/F [address] Unit#: [id number] Loc: [place] [address] Phys: Madhuri Neely [employer] Acct: [id number] Dis Date: Status: REG ER PHONE #: [phone] Exam Date: 08/19/20192057 FAX #: [phone] Reason: SEE REASON ON US PREG 1ST TRMTR EXAMS: CPT CODE: [id number] DUP AB/PEL/SC/LTD 43191 EXAM: - US PREG 1ST TRIMTR, - [...] . Correlation with serial beta-hCG values and Ob-complex director consultation/follow up is recommended. at 2114 Reported and signed by: TRINA FINLEY DR CC: Technologist: TIM HANSEN Trnscrd Date/Time/By: 08/19/2019 (2114) : By: Mike PAGE 1 Signed Report [place]: St: REG -- Name: ASHLEY HAYNES [facility] : 2000 Age/S: 19/F [address] Unit #: [id number] Loc: [place] [address] Phys: Madhuri Neely [employer] Acct: [id number] Dis Date: Status: REG ER PHONE #: [phone] Exam Date: 08/19/20192057 FAX #: [phone] Reason: SEE REASON ON US PREG 1ST TRMTR EXAMS: CPT CODE: [id number] DUP AB/PEL/SC/LTD 29392 <Continued> Orig PrintD/T: S: 08/19/2019 (2117) PAGE 2 Signed Report- US PREG UT [id number] 21:15:00 [place]: St: REG Name: ASHLEY HAYNES [facility] : 2000 Age/S: 19/F [address] Unit#: [id number] Loc: [place] [address] Phys: Madhuri Neely Buzz [employer] Acct: [id number] Dis Date: Status: REG ER PHONE #: [phone] Exam Date: 08/19/20192057 FAX #: [phone] Reason: SEE REASON ON US PREG 1ST TRMTR EXAMS: CPT CODE: [id number] US PREG UT TRANSVAGINAL 64639 EXAM: - US PREG 1ST TRIMTR, - [...] . Correlation with serial beta-hCG values and Ob-complex director consultation/follow up is recommended. at 2115 Reported and signed by: TRINA FINLEY DR CC: Technologist: S#: [id number] IC5-9-D TV; TIM HANSEN Trnscrd Date/Time/By: 08/19/2019 (2114) : By: JoleenMKRian PAGE 1 Signed Report [place]: St: REG -- Name: ASHLEY HAYNES [facility] : 2000 Age/S: 19/F [address] Unit #: [id number] Loc: [place] [address] Phys: Madhuri Neely [employer] Acct: [id number] Dis Date: Status: REG ER PHONE #: [phone] Exam Date: 08/19/20192057 FAX #: [phone] Reason: SEE REASON ON US PREG 1ST TRMTR EXAMS: CPT CODE: [id number] US PREG UT TRANSVAGINAL 76951 <Continued> Orig PrintD/T: S: 08/19/2019 (4791) PAGE 2 Signed Report- US PREG 1ST [id number] 21:15:00 [place]: St: REG Name: ASHLEY HAYNES [facility] : 2000 Age/S: 19/F [address] Unit#: [id number] Loc: [place] [address] Phys: Madhuri Neely [employer] Acct: [id number] Dis Date: Status: REG ER PHONE #: [phone] Exam Date: 08/19/20192057 FAX #: [phone] Reason: PELVIC PAIN EXAMS: CPT CODE: [id number] US PREG 1ST TRIMTR 37859 EXAM: - US PREG 1ST TRIMTR, - [...] . Correlation with serial beta-hCG values and Ob-complex director consultation/follow up is recommended. at 2114 Reported and signed by: TRINA FINLEY DR CC: Technologist: TIM HANSEN Trnmnrd Date/Time/By: 08/19/2019 (2114) : By: JoleenMKW PAGE 1 Signed Report [place]: St: REG -- Name: ASHLEY HAYNES [facility] : 2000 Age/S: 19/F [address] Unit #: [id number] Loc: [place] [address] Phys: Madhuri Neely NP Acct: [id number] Dis Date: Status: REG ER PHONE #: [phone] Exam Date: 08/19/20192057 FAX #: [phone] Reason: PELVIC PAIN EXAMS: CPT CODE: [id number] US PREG 1ST TRIMTR 17286 <Continued> Orig PrintD/T: S: 08/19/2019 (2117) PAGE 2 Signed ReportURINALYSIS [id number] 20:38:00 Test Item Value Reference Range Interpretation [...] MUCU) 1+ /LPF <Rare A URINE AND [id number] 18:36:008[facility] JASSS3612-74-43 18:36:00Moderate *ABN*(05/02/18 1:36 PM)[facility] [id number] 18:36:0022[facility] [id number] 18:36:00Negative *NA*(05/02/18 1:36 PM)[facility] [id number] 18:36:00Negative (05/02/18 1:36 PM)[facility] [id number] 18:36:00 Test Item Value Reference Range Interpretation Comments UA Spec Grav (test code = UA Spec 1.012 1 Grav) [facility] [id number] 18:36:00 Test Item Value Reference Range Interpretation Comments UA pH (test code = UA pH) 6.0 1 5.0-8.0 [facility] [id number] 18:36:00Negative (05/02/18 1:36 PM) [facility] [id number] 18:36:00Yellow *NA*(05/02/18 1:36 PM) [facility] [id number] 18:36:00Marked *ABN*(05/02/18 1:36 PM) [facility] TivvqwlTBFJDPJNFZGI1581-67-68 17:40:0011.7[facility]annELECTROLYTES 2018-05-02 17:40:00 Test Item Value Reference Range Interpretation Comments B/C Ratio (test code = B/C Ratio) 9 1 6-25 [facility] EntjoyuVLGDHXUFRKVJ7295-13-59 17:40:004.5[facility]ann[facility]LECTROLYTES 2018-05-02 17:40:00 Test Item Value Reference Range Interpretation Comments A/G Ratio (test code = A/G Ratio) 0.7 1 0.7-1.6 Memorial UiuznylYJPPBJYGCSZU4990-15-94 17:40:000.4[facility]annELECTROLYTES 2018-05-02 17:40:55064Zynxphdl FybgdpoCYDPFCZJVZHV8547-41-50 17:40:0020[facility] RyvsbwuCZHGJNONJUCE9570-64-74 17:40:0095[facility] BahqelfHNJGABEIDDXD8050-27-05 17:40:005[facility] EfachucNSXPVIQQMCZU0430-35-44 17:40:000.58[facility] EUUTGHWSAOYQ1069-03-49 17:40:76451Hsntagvu XerwubaDWMJVZEMUWJD4364-66-34 17:40:0095[facility] NjlfgfwFIGMEREDMOZV1139-35-13 17:40:0030[facility] RMRCJJWAHDZF7699-71-81 17:40:27109Cyvjbnjd AwpdekbLYBTXBJRNGBP0082-43-78 17:40:003.7[facility]orial EkucpxdGQKNYMNGDPJQ6083-90-48 17:40:0023[facility] KSNLOTVGUVPU8808-21-17 17:40:009.0[facility] EiuvmgrYNTRGTZXIIOS7312-65-94 17:40:007.5[facility]orial FbsctbbIXLBNYAZGBZN5057-75-34 17:40:003.0[facility] MPSRUEIGVG1930-37-33 17:40:000.1[facility] ExylednEASPGBKHLH2885-94-95 17:40:00 88.4[facility]orial CgyqlizNADIMHEIMG1295-47-79 17:40:000.5[facility]annHEMATOLOGY 2018-05-02 17:40:001.1[facility] VgorvceKKNMONFQUJ9873-17-75 17:40:003.4[facility] YmdffyrJRQGICUNLA3880-03-93 17:40:007.7[facility] NujlwovMDDYMPTDIS9247-73-57 17:40:000.1[facility] CubetqiVXIHKWPHTJ0736-52-27 17:40:0012.5[facility] SOQUYJJDEM9281-35-18 17:40:000.4[facility] PiobtwoSHKIVMRFCZ1689-88-08 17:40:19436 Memorial VppjycnEORYJVDPJS8792-02-49 17:40:008.3[facility]ann[facility]OLOGY 2018-05-02 17:40:0033.3[facility] WpabstaVPQHIRGAUU0679-35-07 17:40:0014.1[facility] GrazkjqJZYKGKKSZH0355-44-69 17:40:0089.7[facility] ZglzbiqRBXWAODSJJ7215-26-16 17:40:00 Test Item Value Reference Range Interpretation Comments MCH (test code = MCH) 29.9 pg 27.0-31.0 [facility] GzskmgnSKVYJTIXRR7776-47-23 17:40:0014.3[facility]annHEMATOLOGY 2018-05-02 17:40:004.77[facility] UpjnbtoPHSNUCTTXN5089-58-88 17:40:0042.8[facility] MkudktuOUASZHUJGG0395-74-36 17:40:0014.2[facility]annCHEM FQOQB5994-28-99 17:40:0090[facility]annDRUG LHBKYZ2813-30-23 17:02:00Negative *NA*(04/05/18 12:02 PM)[facility] XOPLEF3172-69-22 17:02:00Negative *NA*(04/05/18 12:02 PM)[facility] JHAUZA7720-07-16 17:02:00Negative *NA*(04/05/18 12:02 PM)[facility] KIMXNP9436-27-28 17:02:00Negative *NA*(04/05/18 12:02 PM)[facility] GWPGCU5160-00-59 17:02:00Negative *NA*(04/05/18 12:02 PM)[facility] HPGFXM1273-31-97 17:02:00Negative *NA*(04/05/18 12:02 PM)[facility] XMLWXS0589-53-63 17:02:00Negative *NA*(04/05/18 12:02 PM)[facility] WKWCZY1456-42-26 17:02:00See Note (04/05/18 12:02 PM)[facility] VMMYR1412-94-69 17:02:00Negative (04/05/18 12:02 PM) [facility] EEBQJ5452-42-81 17:02:00Moderate *ABN*(04/05/18 12:02 PM)[facility] IUMTE1178-75-25 17:02:003[facility] ITDKP6707-30-47 17:02:007[facility] NHLFL3813-05-16 17:02:00 Test Item Value Reference Range Interpretation Comments UA pH (test code = UA pH) 8.0 1 5.0-8.0 [facility] CZCTV6830-11-61 17:02:00Negative *NA*(04/05/18 12:02 PM)[facility] OBAYA5573[facility]92[facility]30 17:02:00Amber *ABN*(04/05/18 12:02 PM)[facility] NNHFE7464-63-22 17:02:002.0[facility] SZZZV4075-21-86 17:02:00Negative (04/05/18 12:02 PM)[facility] LOZPV6823-05-51 17:02:00 Test Item Value Reference Range Interpretation Comments UA Spec Grav (test code = UA Spec 1.021 1 Grav) [facility] FXZGM8018-32-42 17:02:00Marked *ABN*(04/05/18 12:02 PM) [facility] HEJNZ2097-23-28 22:30:00Trace *ABN*(12/13/17 4:30 PM) [facility] YUXRB0626-28-44 22:30:00Negative (12/13/17 4:30 PM) [facility] BNEUL5866-58-60 22:30:006[facility] LWLGC0059-66-11 22:30:008[facility] SCMNL8217-47-65 22:30:00 Test Item Value Reference Range Interpretation Comments UA Spec Grav (test code = UA Spec 1.019 1 Grav) [facility] OCFPD1592-43-94 22:30:00 Test Item Value Reference Range Interpretation Comments UA pH (test code = UA pH) 7.0 1 5.0-8.0 [facility] TFSEH8090-07-29 22:30:00Slight *ABN*(12/13/17 4:30 PM) [facility] LGVXK6999-73-89 22:30:00Moderate *ABN*(12/13/17 4:30 PM)[facility] TSJBF6709-42-98 22:30:00Negative *NA*(12/13/17 4:30 PM)[facility] FULXU1009-55-90 22:30:00Yellow *NA*(12/13/17 4:30 PM)[facility] JUNGO8778-28-45 22:27:86172Spwestla HermannCHEM PANEL 2017-12-13 22:27:90988Ajhzmqtk [facility]CHE[facility] EDBVX9307-12-71 22:27:003.5[facility] SSIFO9857-70-04 22:27:003.7[facility] WBFCI9410-94-06 22:27:0024[facility] KVGHY6811-28-26 22:27:009.1[facility] FEPRL8252-64-30 22:27:27726Nwawtaze [facility]annCHE[facility] LIDVO8661-71-20 22:27:0025 [facility] LMOOM5315-44-36 22:27:0069[facility] PANEL 2017-12-13 22:27:000.4[facility] GBMOW1216-44-81 22:27:007.6[facility] EAVMM5358-34-58 22:27:0018[facility] OAESS9691-10-15 22:27:007[facility] UZZSB5707-54-36 22:27:000.59[facility] CHHEH4458-69-74 22:27:0086[facility] WIUEN3824-51-13 22:27:003.9 [facility] DSZTZ4055-04-24 22:27:00 Test Item Value Reference Range Interpretation Comments A/G Ratio (test code = A/G Ratio) 0.9 1 0.7-1.6 [facility] HermannCHEM UGIFL2704-17-39 22:27:008.5[facility]CHE[facility] PANEL 2017-12-13 22:27:00 Test Item Value Reference Range Interpretation Comments B/C Ratio (test code = B/C Ratio) 12 1 6-25 [facility] WfyjanaRWQXACXFUSNWC2566-40-89 22:27:1455423Mkrubvgi HermannHEMATOLOGY 2017-12-13 22:27:0043.8[facility] WltsbxgBCGWSLIIDJ2048-75-73 22:27:0088.4[facility] GstwgkqNRSOJYFROY5106-58-33 22:27:0014.6[facility] IieyqhfJWNHVXLRQO7725-43-33 22:27:00 Test Item Value Reference Range Interpretation Comments MCH (test code = MCH) 29.4 pg 27.0-31.0 [facility] JhhsgswJUPPDETBVT0498-61-02 22:27:0033.2[facility] 2017-12-13 22:27:56931Jnmboqji YzkxuzaWXFULYJYKF5539-36-86 22:27:0014.6[facility] VchpulmLCZQCKRCJD3677-01-84 22:27:008.6[facility] BaneygqYAPNHRTUAW8832-91-89 22:27:004.95[facility] LpctgmcFUZTYQVNJJ0215-77-37 22:27:008.2[facility] MRGTVYLOHC3524-91-35 22:27:006.5[facility] HkpdjhyFMEFWERRFG9529-49-47 22:27:000.6 [facility] QifephcDZAGEHRMDV1949-54-28 22:27:000.2[facility]annHEMATOLOGY 2017-12-13 22:27:0024.1[facility] WlfoqxtUQJBIYQKHM0712-49-55 22:27:0067.0[facility] TojcfoaKTHEPQMHOW9873-68-67 22:27:005.8[facility] DxkgzyeAROVMVQMEP7961-95-23 22:27:002.1[facility] MegwxuwRWLQMQPIWQ3853-67-56 22:27:000.3[facility] HRDOVGIPWW4258-54-57 22:27:002.1[facility] VBGVU0207-13-77 21:54:003[facility] KPOIX5578-68-95 21:54:00Large *ABN*(11/28/17 3:54 PM)[facility] MLLPH4600-30-27 21:54:00Negative (11/28/17 3:54 PM)[facility] KTSHG7716-62-07 21:54:003[facility] STGGY0075-78-81 21:54:00Moderate *ABN*(11/28/17 3:54 PM)[facility] MBYCI7240-16-24 21:54:00 Test Item Value Reference Range Interpretation Comments UA Spec Grav (test code = UA Spec 1.026 1 Grav) [facility] TMJYF9898-11-17 21:54:00Clear (11/28/17 3:54 PM) [facility] KNVKR0740-19-96 21:54:00 Test Item Value Reference Range Interpretation Comments UA pH (test code = UA pH) 6.0 1 5.0-8.0 [facility] NQAVW6935-75-36 21:54:00Negative *NA*(11/28/17 3:54 PM) [facility] BFTYD9527-01-82 21:54:00Yellow *NA*(1/16/18 3:54 PM) [facility] UNBKE5878-72-41 21:30:00 Test Item Value Reference Range Interpretation Comments A/G Ratio (test code = A/G Ratio) 1.0 1 0.7-1.6 [facility] YLFZV7515-08-86 21:30:003.6[facility]annCHEM PANEL 2017-11-28 21:30:00 Test Item Value Reference Range Interpretation Comments B/C Ratio (test code = B/C Ratio) 17 1 6-25 [facility] VXXKT3261-45-48 21:30:0010.5[facility]annCHEM PANEL 2017-11-28 21:30:03770Teuiravx HermannCHEM GAJZA1177-30-62 21:30:0035[facility]ann[facility] LJUMI8277-09-18 21:30:007.3[facility]annCHE[facility] WFZYN6211-09-21 21:30:008.7[facility]CHE[facility] UVRTF9267-95-41 21:30:0012[facility]annCHE[facility] LDPOL8623-13-55 21:30:000.70[facility]annCHE[facility] VCZOJ8585-21-92 21:30:61078 [facility] PLAYH7350-02-69 21:30:69190Eptdbjjp HermannCHEM PANEL 2017-11-28 21:30:003.5[facility]annCHE[facility] WTLFA2804-02-94 21:30:003.7[facility]CHE[facility] SYTOB2532-15-22 21:30:0083[facility]annCHE[facility] LAAAE0649-87-34 21:30:0024[facility]annCHE[facility] BNCJG7491-05-54 21:30:0066[facility]annCHE[facility] DOVOO6183-16-50 21:30:0025[facility]annCHE[facility] WEUQT6800-28-32 21:30:000.3 [facility] OiykmncUQRHMAVUNEQNE9319-21-30 21:30:720952Irhcutgf HermannHEMATOLOGY 2017-11-28 21:30:007.8[facility] QjpiejtQFKQUETHQD5223-63-62 21:30:004.81[facility] MimclwjBJWZAOAYJM8996-36-16 21:30:0088.1[facility] VhgtqoeJMROEKVFTX3523-39-27 21:30:0033.4[facility] YkrbjhxVFHANDLGMM9453-19-91 21:30:00 Test Item Value Reference Range Interpretation Comments MCH (test code = MCH) 29.5 pg 27.0-31.0 [facility] DsporavFUYVUNRABL9082-86-70 21:30:0013.9[facility]annHEMATOLOGY 2017-11-28 21:30:0042.4[facility] SopurjfFEWHGWCMWS3633-67-49 21:30:0014.2[facility] DmalsrvNEAXTSAOEB1026-19-94 21:30:008.4[facility] FuiguqkOJBQAKXIXY6461-09-30 21:30:41240Babqpnlr TrptxpcNYUKBDRUWX1383-15-45 21:30:000.3[facility] MIDYYEXKFF7523-75-41 21:30:001.8[facility] CjaibluBZXFNIIKBT8231-92-23 21:30:000.5 [facility] MgywziaKVRFKDNJYI2151-27-94 21:30:004.1[facility]annHEMATOLOGY 2017-11-28 21:30:005.1[facility] KdssosgKUOCEUELCG5244-30-18 21:30:006.5[facility] DpldcfjIBNUWPDXVO4181-31-22 21:30:000.3[facility] AxjsdrdFPEJFMHOQI0150-51-85 21:30:0065.4[facility] CxijdhxEIXFNYYLCE2286-73-27 21:30:0023.7[facility] CARDIAC FMHJLLU5618-84-39 12:59:00<0.02[facility] ENZYMES 2017-10-10 12:59:0093[facility]AC UJOOPDV9848-95-18 12:59:00<1.0 [facility] HZVTODY0999-83-44 12:59:00<1.1[facility] YLRLS5363-86-08 11:56:002[facility] LCKJQ6561-82-28 11:56:002 [facility] KOGTF9608-15-76 11:56:00Negative (10/10/17 5:56 AM) [facility] CFIWG2601-61-30 11:56:00Clear (10/10/17 5:56 AM) [facility] WWVBG8180-45-34 11:56:00Negative (10/10/17 5:56 AM) [facility] VKQAS1077-25-66 11:56:00Negative *NA*(10/10/17 5:56 AM)[facility] ZGNMN5664-88-00 11:56:001.031[facility] SZHFR9851-06-89 11:56:00Yellow *NA*(10/10/17 5:56 AM)[facility] RGGBT9067-28-22 11:56:005.0[facility] CRGUK5507-54-97 11:56:00Negative (10/10/17 5:56 AM)[facility] GZTHX8832-40-08 11:56:002.0[facility]annCARDIAC YMWTJOG0431-05-97 09:29:00<0.9[facility]annCARD[facility]AC IILIVGH3307-16-95 09:29:00<0.02[facility] ENZYMES 2017-10-10 09:29:00<1.0[facility] AUEKRMT9629-05-78 09:29:36497 [facility]annCHE[facility] BNOIB0026-86-64 09:29:04342Lnegedfn HermannCHEM PANEL 2017-10-10 09:29:0092[facility]annCHE[facility] AMLMW4772-88-41 09:29:003.9[facility]annCHE[facility] CYRVM2606-05-38 09:29:000.9[facility]CHE[facility] SNFLE9020-00-22 09:29:0011.6[facility]CHE[facility] FCFON9657-34-13 09:29:0015[facility]annCHE[facility] ONKEA3793-63-49 09:29:0077[facility]CHE[facility] ZAGOJ0176-96-92 09:29:0065 [facility] DKVUX6570-51-96 09:29:000.3[facility]annCHEM PANEL 2017-10-10 09:29:0028[facility]annCHE[facility] KKOHM1599-72-49 09:29:003.7[facility]annCHE[facility] BAUNS7373-47-64 09:29:000.92[facility]annCHE[facility] BUMIY4049-19-22 09:29:003.6[facility]annCHE[facility] PDCCL9182-54-88 09:29:23753Cdokfpbo HermannCHEM MIRHG6181-40-82 09:29:0014[facility]annCHE[facility] VIZLN1060-00-92 09:29:0083 [facility]CHE[facility] JTMHW3488-29-93 09:29:50337Idtgvitd HermannCHEM PANEL 2017-10-10 09:29:007.6[facility]annCHE[facility] YQJXV5579-66-31 09:29:009.3[facility]annCHE[facility] QEJEF4223-80-80 09:29:0026[facility] ZsknxybLFXLZKCUBGNCQ0084-67-16 09:29:00Negative *NA*(10/10/17 3:29 AM)[facility] MxbjecsIQXRRTGVYI4246-18-29 09:29:000.1[facility] NprfgnfNSGQIHGURR4882-96-26 09:29:0054.5[facility] GQPWRQAELE5231-20-00 09:29:006.9[facility] KcrxckjBYSDQAMTCT4404-01-12 09:29:003.7 [facility] WrvqyvqLOTPIKTFPS5911-07-55 09:29:0034.3[facility]annHEMATOLOGY 2017-10-10 09:29:000.3[facility] XenrospOXEUULPFEV1581-87-76 09:29:004.5[facility] KbdliqrJLZQRDGLKL6567-26-52 09:29:000.6[facility] IjovdjaCFFLGQWGIJ3481-98-26 09:29:000.6[facility] IphuolqGBVQOUYVXI5103-34-36 09:29:002.8[facility] XEYHJADHUR3879-92-95 09:29:00 Test Item Value Reference Range Interpretation Comments PTT (test code = PTT) 28.6 s 22.9-35.8 [facility] VnsytbzYWVQTJAYZD3498-89-92 09:29:00 Test Item Value Reference Range Interpretation Comments PT (test code = PT) 12.8 s 12.0-14.7 [facility] ZftniheBLWURMMLJX4806-37-77 09:29:000.96[facility]annHEMATOLOGY 2017-10-10 09:29:55812Asouslfg HicastyQRBERFUCQI6521-07-93 09:29:0014.2[facility] BgfsbbzXKYRLXROZQ3363-89-45 09:29:008.1[facility] JdomajvQEPSLCYKUY3136-06-36 09:29:0088.6[facility] WbzwrdoAIUSCGJEXB8080-08-55 09:29:0033.7[facility] AWMCCIHWCN6560-73-75 09:29:00 Test Item Value Reference Range Interpretation Comments MCH (test code = MCH) 29.8 pg 27.0-31.0 [facility] KvvjfwsLJASALKDXG9058-88-78 09:29:0014.6[facility]annHEMATOLOGY 2017-10-10 09:29:0043.3[facility] MtsmlhoVJEHFVKARS9739-99-52 09:29:008.2[facility] NqfdqrqIXTBGZCMWG6177-30-02 09:29:004.89[facility] STOOL 2016-10-24 15:32:00Small *ABN*(10/24/16 9:32 AM)[facility] STOOL 2016-10-24 15:32:00Negative (10/24/16 9:32 AM)[facility] STOOL 2016-10-24 15:32:00Negative *NA*(10/24/16 9:32 AM)[facility] YMHKP8622-87-87 15:32:00Negative (10/24/16 9:32 AM)[facility] IWBQX0287-73-15 15:32:00Negative *NA*(10/24/16 9:32 AM)[facility] EJPMN8886-51-73 15:32:00Negative (10/24/16 9:32 AM)[facility] XDZJK5017-06-85 15:32:000.2[facility] LCIMB1560-86-58 15:32:00 Negative (10/24/16 9:32 AM)[facility] ASGXY7870-52-63 15:32:00 Test Item Value Reference Range Interpretation Comments UA Spec Grav (test code = UA Spec 1.020 1 Grav) [facility] QWPSY9541-56-04 15:32:00 Test Item Value Reference Range Interpretation Comments UA pH (test code = UA pH) 6.0 1 5.0-8.0 [facility] ZMJXM2094-89-76 15:32:00Yellow *NA*(10/24/16 9:32 AM) [facility] HCJHD8472-83-54 15:32:00Clear (10/24/16 9:32 AM) [facility] WWEL9742-02-89 15:32:00Negative (10/24/16 9:32 AM)[facility]annCHEM NAONV5599-79-53 08:53:0075[facility]annCHEM ISVBJ3543-64-87 08:53:0073[facility]annCHEM BALWB5049-02-84 08:53:49127Zjvvnodg [facility]CHE[facility] GQBDS5837-74-26 08:53:000.87[facility]annCHE[facility] SUBWT3601-21-58 08:53:003.6 [facility] DIOTI2818-78-14 08:53:009[facility]annCHEM PANEL 2016-03-11 08:53:0016.6[facility]CHE[facility] TXNAK5387-67-10 08:53:0017[facility]CHE[facility] XPFGL2274-28-88 08:53:008.0[facility]annCHE[facility] YJNUJ7291-02-43 08:53:37424Wrmummgy [facility]annCHEM VNLRS3963-88-34 04:01:0085[facility] UZXOEKNPDKRS4972-17-32 04:01:64834Cscrgixl LfqgucnTTGNROAYIPMG2771-84-84 04:01:0013[facility] YggowzxJZMLEGBKULMC0249-06-20 04:01:001.10[facility] FLNCPMTKGPWZ9910-59-98 04:01:47941Hkjqibzq McpfbjiGDEBJESBOPGA2727-18-63 04:01:003.6[facility] CqbweohOTTYKDYIRYIR5188-24-30 04:01:37283Bprjplad Abdulaziz BVIVOHIUKXGP4098-55-85 04:01:0010[facility] KkcpvyoDDDLSOGBCGBP3522-49-22 04:01:00 59[facility] YrwkatmERGKVFMAOHNS9859-13-28 04:01:009.7[facility] HermannELECTROLYTES 2016-03-11 04:01:0022.6[facility] ZsommdtQVQMBFMWOANRA7678-33-24 04:01:00Negative *NA*(03/10/16 11:01 PM)[facility] XxxpqlcKODDOJRYML8860-66-66 04:01:40629Kyqhivfz AkrlnnqXZOBKXPSKH0392-97-15 04:01:0014.4[facility] YngmrwwTVKAMDMXDL5125-57-59 04:01:0033.4[facility] BfajesxAQBZIUNTDO9561-47-36 04:01:008.6[facility] JVQCOWSHYG8391-55-32 04:01:0045.6[facility] JvvnxalUVXKKKWQCC4048-13-00 04:01:00 15.2[facility] ZthbvsfSDSBABCUSO2979-85-48 04:01:005.21[facility]annHEMATOLOGY 2016-03-11 04:01:0087.5[facility] MjpnjbqBNTGYMVRDC0229-93-35 04:01:00 Test Item Value Reference Range Interpretation Comments MCH (test code = MCH) 29.2 pg 27.0-31.0 [facility] MrigottXNIWBJHAUP3668-62-47 04:01:008.2[facility]annHEMATOLOGY 2016-03-11 04:01:009.7[facility] WmwalkhKVVTUNCFRZ3211-48-15 04:01:005.8[facility] XjcjemuTLLSYQQVBF5942-32-78 04:01:000.3[facility] LnniggdATHHWBIIOS1494-59-65 04:01:001.6[facility] JckuclvTWNZILNUYE5472-76-03 04:01:000.3[facility] BTQRLSOBSS0704-84-17 04:01:000.8[facility] OaqispgNPKLCLMEYE1431-61-16 04:01:00 19.3[facility] TqwebpyOCOTDGWRFR2554-16-41 04:01:0070.4[facility] OTTZE5411-82-81 04:01:00Negative (03/10/16 11:01 PM)[facility] QOEWV9971-86-24 04:01:00 Test Item Value Reference Range Interpretation Comments UA pH (test code = UA pH) 5.5 1 5.0-8.0 [facility] AHIAM6342-79-32 04:01:00>=1.030 *ABN*(03/10/16 11:01 PM)[facility] UXMNH4309-91-50 04:01:00Clear (03/10/16 11:01 PM) [facility] UPDNI2586-61-57 04:01:00Yellow *NA*(03/10/16 11:01 PM) [facility] AYCSO0145-97-39 04:01:00Negative (03/10/16 11:01 PM) [facility] VZNDV0360-30-58 04:01:00Large *ABN*(03/10/16 11:01 PM) [facility] XJDAN2414-39-40 04:01:00Small *ABN*(03/10/16 11:01 PM) [facility] VZCBM9910-58-11 04:01:00Negative (03/10/16 11:01 PM) [facility] BORCU5341-82-63 04:01:000.2[facility]
[2021-03-18 22:21] LABS: SARS-COV-2 RT PCR NEGATIVE (NEGATIVE)
[2021-03-18] MEDS ORDERED: IBUPROFEN 400 MG TAB ONE (22:34)
[2021-03-18 23:11] LABS: Urine Blood Trace-intact (Negative); Urine Glucose Negative (Negative); Urine Protein Trace (Negative); Urine Specific Gravity 1.025 (1.005-1.030); Urine pH 7.5 (5.0-7.0)
[2021-03-18 23:15] LABS: Urine Specific Gravity/Preg 1.025 (1.005-1.030)
--- NOTE | 2021-03-18 23:16 | ER ---
Nurse's Notes [facility] Name: Yanely Hernandez Age: 20 yrs Sex: Female : 2000 Arrival Date: 03/18/2021 Time: 20:14 Bed 18 Private MD: Diagnosis: Otitis media in diseases classified elsewhere, right ear;Acute bronchitis Presentation: 03/18 20:26 Chief complaint: Patient states: body aches, loss of taste and smell, cough, runny ca1 nose, sore throat, fever x 2 days. Coronavirus screen: Client denies travel out of the [place] in the last 14 days. congestion, cough unrelated to allergies, fatigue, fever, muscle pain, runny nose, sore throat, loss of taste or smell, Client presents with at least one sign or symptom that may indicate coronavirus-19. Standard/surgical mask placed on the client. Provider contacted for isolation considerations. Ebola Screen: Patient negative for fever greater than or equal to 101.5 degrees Fahrenheit, and additional compatible Ebola Virus Disease symptoms Patient denies exposure to infectious person. Patient denies travel to an Ebola-affected area in the 21 days before illness onset. No symptoms or risks identified at this time. Initial Sepsis Screen: Does the patient meet any 2 criteria? No. Patient's initial sepsis screen is negative. Does the patient have a suspected source of infection? No. Patient's initial sepsis screen is negative. Risk Assessment: Do you want to hurt yourself or someone else? Patient reports no desire to harm self or others. Onset of symptoms was March 18, 2021. 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 Flu vaccine is not up to date. - Social history:: Smoking status: Patient denies any tobacco usage or history of. Screenin:00 Abuse screen: Denies threats or abuse. Nutritional screening: No deficits noted. ea Tuberculosis screening: No symptoms or risk factors identified. Fall Risk None identified. Assessment: 21:00 General: Appears in no apparent distress. Behavior is calm, cooperative, appropriate ea for age. Pain: Denies pain. Neuro: Level of Consciousness is awake, alert, obeys commands, Oriented to person, place, time. Cardiovascular: Patient's skin is warm and dry. Respiratory: Airway is patent Respiratory effort is even, unlabored, Respiratory pattern is regular, symmetrical. Derm: Skin is pink, warm \T\ dry. 23:30 Reassessment: Patient and/or family updated on plan of care and expected duration. Pain ea level reassessed. Patient is alert, oriented x 3, equal unlabored respirations, skin warm/dry/pink. Discharge instruction given to patient verbalized the understanding of instruction. Pt left ED ambulatory tolerating well. Vital Signs: 20:26 BP 128 / 79; Pulse 103; Resp 16 S; Temp 98.5; Pulse Ox 99% ; Weight 79.38 kg (R); ca1 Height 5 ft. 3 in. (160.02 cm) (R); Pain 6/10; 23:15 BP 118 / 78; Pulse 88; Resp 19; Temp 98.4; Pulse Ox 99% ; ea 20:26 Body Mass Index 31.00 (79.38 kg, 160.02 cm) ca1 ED Course: 20:14 Patient arrived in ED. am4 20:28 Triage completed. ca1 20:28 Arm band placed on right wrist. ca1 20:35 Strep Sent. ca1 20:35 Flu Sent. ca1 20:45 Keanu Lay PA is PHCP. cp 20:45 Mark Barreto MD is Attending Physician. cp 20:53 Dee Martinez RN is Primary Nurse. ea 21:00 Patient has correct armband on for positive identification. Bed in low position. Call ea light in reach. Side rails up X2. 23:25 No provider procedures requiring assistance completed. Patient did not have IV access ea during this emergency room visit. Administered Medications: 22:26 Drug: Ibuprofen 800 mg Route: PO; ea 22:33 Follow up: Response: No adverse reaction ea 23:23 Drug: Tessalon Perle (benzonatate) 200 mg Route: PO; ea 23:32 Follow up: Response: No adverse reaction ea 23:23 Drug: Tylenol 1000 mg Route: PO; ea 23:32 Follow up: Response: No adverse reaction ea Outcome: 23:16 Discharge ordered by . elena 23:31 Discharged to home ambulatory, with family. ea 23:31 Condition: stable 23:31 Discharge instructions given to family, Instructed on discharge instructions, follow up and referral plans. medication usage, Demonstrated understanding of instructions, follow-up care, medications, Prescriptions given X 2. 23:31 Patient left the ED. ea Signatures: Keanu Lay PA PA cp Antunez, Elena, RN RN Elizabeth Starks RN RN Rosio Persaud Corrections: (The following items were deleted from the chart) 21:34 20:35 CORONAVIRUS+MR.LAB.BRZ drawn and sent. ca1 EDMS
--- NOTE | 2021-03-18 23:17 | EDPHYS ---
Physician Documentation [facility] Name: Yanely Hernandez Age: 20 yrs Sex: Female : 2000 Arrival Date: 03/18/2021 Time: 20:14 Bed 18 Private MD: ED Physician Mark Barreto HPI: 03/18 22:15 This 20 yrs old Female presents to ER via Ambulatory with complaints of cp Doesn't Feel Right, Cough, Congestion, Ear Pain. 22:15 The patient or guardian reports cough, that is constant. Onset: The symptoms/episode cp began/occurred 2 day(s) ago. Associated signs and symptoms: Pertinent positives: fever, sore throat, decreased hearing left ear, nasal congestion. 22:15 Severity of symptoms: in the emergency department the symptoms are unchanged despite cp home interventions. HOG SAWYER: 20:28 LMP 02/20/2021 ca1 Historical: - Allergies: 20:28 No Known Allergies; ca1 - Home Meds: 20:28 None [Active]; ca1 - PMHx: 20:28 None; ca1 - PSHx: 20:28 None; ca1 - Immunization history:: Client reports having NOT received the Covid vaccine. Flu vaccine is not up to date. - Social history:: Smoking status: Patient denies any tobacco usage or history of. ROS: 22:20 Constitutional: Positive for body aches, Negative for fever, poor PO intake. cp 22:20 Eyes: Negative for injury, pain, redness, and discharge. cp 22:20 ENT: Positive for hearing loss, sore throat, Negative for drainage from ear(s), difficulty swallowing, difficulty handling secretions. 22:20 Cardiovascular: Negative for chest pain, palpitations. 22:20 Respiratory: Positive for cough, Negative for shortness of breath, wheezing. 22:20 Abdomen/GI: Negative for abdominal pain, nausea, vomiting, and diarrhea. 22:20 Skin: Negative for rash. 22:20 Neuro: Negative for altered mental status, headache, weakness. 22:20 All other systems are negative. Exam: 22:25 Constitutional: The patient appears in no acute distress, alert, awake, non-toxic, well cp developed, well nourished. 22:25 Head/Face: Normocephalic, atraumatic. cp 22:25 Eyes: Periorbital structures: appear normal, Conjunctiva: normal, no exudate, no injection, Sclera: no appreciated abnormality, Lids and lashes: appear normal, bilaterally. 22:25 ENT: External ear(s): are unremarkable, Ear canal(s): cerumen impaction, that is moderate, occluding the left ear canal, TM's: bulging, on the right, erythema, that is marked, on the right, Nose: is normal, Mouth: Lips: moist, Oral mucosa: moist, Posterior pharynx: Airway: no evidence of obstruction, patent, Tonsils: no enlargement, no exudate, erythema, that is mild, exudate, is not appreciated. 22:25 Neck: ROM/movement: is normal, is supple, no meningismus, no nuchal rigidity, Lymph nodes: no appreciated lymphadenopathy. 22:25 Chest/axilla: Inspection: normal, Palpation: is normal, no crepitus, no tenderness. 22:25 Cardiovascular: Rate: tachycardic, Rhythm: regular. 22:25 Respiratory: the patient does not display signs of respiratory distress, Respirations: normal, no use of accessory muscles, no retractions, labored breathing, is not present, Breath sounds: decreased breath sounds, are not appreciated, stridor, is not appreciated, + upper airway congestion. wheezing: is not appreciated. 22:25 Abdomen/GI: Exam negative for discomfort, distension, guarding, Inspection: abdomen appears normal. 22:25 Skin: no rash present. 22:25 Neuro: Orientation: to person, place \T\ time. Mentation: is normal. Vital Signs: 20:26 BP 128 / 79; Pulse 103; Resp 16 S; Temp 98.5; Pulse Ox 99% ; Weight 79.38 kg (R); ca1 Height 5 ft. 3 in. (160.02 cm) (R); Pain 6/10; 23:15 BP 118 / 78; Pulse 88; Resp 19; Temp 98.4; Pulse Ox 99% ; ea 20:26 Body Mass Index 31.00 (79.38 kg, 160.02 cm) ca1 MDM: 20:47 Patient medically screened. cp 23:15 Data reviewed: vital signs, nurses notes, lab test result(s). cp 23:15 Differential diagnosis: bronchitis, flu, URI, pneumonia, otitis media, COVID-19. cp Counseling: I had a detailed discussion with the patient and/or guardian regarding: the historical points, exam findings, and any diagnostic results supporting the discharge/admit diagnosis, lab results, to return to the emergency department if symptoms worsen or persist or if there are any questions or concerns that arise at home. ED course: VSS. Patient appears non-toxic and no signs of respiratory distress. Will discharge to home for continued monitoring. 03/18 20:33 Order name: Flu ca1 03/18 20:33 Order name: Strep ca1 03/18 20:34 Order name: Group A Streptococcus Rapid Sc EDMS 03/18 22:22 Order name: COVID-19/FLU A+B; Complete Time: 22:48 EDMS 03/18 21:22 Order name: Urine Test (obtain specimen); Complete Time: 23:11 cp 03/18 21:22 Order name: Urine Dipstick-Ancillary (obtain specimen); Complete Time: 23:11 cp 03/18 23:11 Order name: Urine Dipstick-Ancillary; Complete Time: 23:12 EDMS 03/18 23:11 Order name: Urine --Ancillary (enter results) tt3 03/18 23:14 Order name: Throat Culture EDMS Administered Medications: 22:26 Drug: Ibuprofen 800 mg Route: PO; ea 22:33 Follow up: Response: No adverse reaction ea 23:23 Drug: Tessalon Perle (benzonatate) 200 mg Route: PO; ea 23:32 Follow up: Response: No adverse reaction ea 23:23 Drug: Tylenol 1000 mg Route: PO; ea 23:32 Follow up: Response: No adverse reaction ea Disposition: 03/19 06:34 Co-signature as Attending Physician, Mark Barreto MD. [email or web address] Disposition: 03/18/21 23:16 Discharged to Home. Impression: Otitis media in diseases classified elsewhere, right ear, Acute bronchitis. - Condition is Stable. - Discharge Instructions: Acute Bronchitis, Adult, Otitis Media, Adult. - Prescriptions for Augmentin 875- 125 mg Oral Tablet - take 1 tablet by ORAL route every 12 hours for 10 days; 20 tablet. Tessalon Perles 100 mg Oral Capsule - take 2 capsule by ORAL route every 8 hours As needed; 30 capsule. - Medication Reconciliation Form, Thank You Letter, Antibiotic Education, Prescription Opioid Use form. - Follow up: Private Physician; When: 2 - 3 days; Reason: Worsening of condition. - Problem is new. - Symptoms have improved. Signatures: Dispatcher [employer] EDMS Keanu Lay PA PA cp Antunez, Elena, RN Elizabeth Ruiz ea RN Mark Saenz MD MD [email or web address] Corrections: (The following items were deleted from the chart) 03/18 21:34 20:34 CORONAVIRUS+MR.LAB.BRZ ordered. EDMS EDMS 21:35 20:33 Influenza Screen (A ordered. EDMS EDMS 23:31 23:16 03/18/2021 23:16 Discharged to Home. Impression: Otitis media in diseases ea classified elsewhere, right ear; Acute bronchitis. Condition is Stable. Forms are Medication Reconciliation Form, Thank You Letter, Antibiotic Education, Prescription Opioid Use. Follow up: Private Physician; When: 2 - 3 days; Reason: Worsening of condition. Problem is new. Symptoms have improved. cp
[2021-03-18] MEDS ORDERED: BENZONATATE 100 MG CAP PO ONE (23:36)
[2021-03-18] MEDS ORDERED: ACETAMINOPHEN 500 MG TAB ONE (23:37)
[2021-03-18 23:48] VITALS: O2SAT 99
[2021-03-18 23:49] VITALS: BP 118/78; TEMP 98.4
== END 2021-03-18 23:31 | disposition home or self-care (01) ==
LOC: ER 20:12
DX: J20.9 Acute bronchitis, unspecified (principal); H66.91 Otitis media, unspecified, right ear; Z20.822 Contact with and (suspected) exposure to COVID-19
CPT/HCPCS: 87070; 81025; 87081; 81003; 0240U; 99283